=== PATIENT | male | born 1935 | race Caucasian/White ===

== ENCOUNTER 2023-12-14 09:18 | Day surgery (SDC) | payer MEDICARE, SELFPAY ==
[2023-12-14] VITALS (8 sets, daily range): BP systolic 139–163; BP diastolic 63–99; PULSE 60–90; RESP 17–20; TEMP 36.6; O2SAT 95–100; BMI 23.3
--- NOTE | 2023-12-14 07:18 | IR_ITS ---
APPROVED REPORT Patient Location: Outpatient [facility] Tacker: [facility] RT (R) PROCEDURES 1. Pocket Revision 2. Right Ventricular sensing and pacing lead capped 3. Placement of ventricular sensing pacing and shocking lead in the right ventricular apex. 4. Placement of left ventricular sensing pacing lead via the coronary sinus. 5. Permanent cardiac resynchronization therapy with ICD implantation/biventricular pacemaker. 6. Removal of pre-existing AV pacemaker generator INDICATION Systolic Congestive Heart Failure, ejection <35%, Wide QRS >150ms, [place] Heart Assoication Class 3 Congestive Heart Failure, Greater than 90% RV pacing Informed consent was obtained prior to the procedure. COMPLICATIONS NONE Estimated Blood Loss: LESS THAN 10 ML TECHNIQUE 1% lidocaine with epinephrine used to anesthetize the left anterior aspect of the chest. Scalpel was used to make the initial cutaneous incision and to dissect down into the fascia. The generator was removed from the existing pocket. Digital manipulation was required along with intermittent usage of scalpel in order to revise the pocket. The leads were removed from the old generator. The patient was then placed in Trendelenburg position and the subclavian vein was accessed 2 times via the Selinger technique. A 8 Micronesian sheath was placed under fluoroscopic guidance into the subclavian vein. The dilator was removed from the sheath. Under fluoroscopic guidance the RV shocking lead was placed in to right ventricular apex. After achieving excellent thresholds and interrogation numbers the sheath was then peeled away and the lead was then secured into place using silk suture. A 10 Micronesian sheath was placed under fluoroscopic guidance into the subclavian vein. The dilator was removed from the sheath. Under fluoroscopic guidance the coronary sinus was cannulated and confirmed with an injection of contrast. An 0.014 wire was then placed distally in the inferior posterior segment of the left ventricle via the coronary sinus and the left ventricular lead was advanced. After achieving excellent thresholds and interrogation numbers the sheath was then peeled away and the lead was then secured into place using silk suture. Ancef was used to flush the pocket and the 3 leads were attached to the OUTCOMES ANALYST-D generator. The generator was then secured into place by heavy silk suture. Monocryl was used to close the subcutaneous layers while aurora were used to close the subcutaneous layers while aurora were used to close the cutaneous layer. A pressure dressing was placed and the patient was transferred to the postop holding area in stable condition for postoperative care. INTERROGATION Generator Model number: Sofia MCKEON, [id number] Generator Serial number: [id number] Atrial lead model number: Atrial lead serial number: P-wave: 2.1mV Impedence: 380 ohms Threshold: 0.75@0.5ms Right Ventricular lead model number: Optisure, [id number], 58CM Right Ventricular lead serial number: [id number] R-wave: none Impedence: 0.5V@0.5ms Threshold: 610 ohms Left Ventricular lead model number: Quartet, 1458Q, 86cm Left Ventricular lead serial number: [id number] Impedence: 2.25V@1.0ms Threshold: 480 ohms Pacing Parameters: Mode: DDDR Base/Max Track:60 ppm / 130 ppm VT-1: bpm, monitor VT-2: 171 bpm, ATP X2, 36J, 40J, 40J X2 VF: 200 bpm, ATP X1, 36J, 40J, 40J X4 No diaphragmatic stimulation at 10 volts. IMPRESSION 1. Successful Pocket Revision 2. Successful Right Ventricular sensing and pacing lead capped 3. Successful Placement of ventricular sensing pacing and shocking lead in the right ventricular apex. 4. Successful Placement of left ventricular sensing pacing lead via the coronary sinus. 5. Successful Permanent cardiac resynchronization therapy with ICD implantation/biventricular pacemaker. PLAN 1. Postop wound care. Electronically signed by : Robles Mario MD 12/15/2023 13:06:46
[2023-12-14 10:05] LABS: Basophils # 0.1 K/mm3 (0-0.2); Basophils % 0.8 % (0.1-2.0); Eosinophils # 0.3 K/mm3 (0.0-0.4); Eosinophils % 4.9 % (0.1-12.0); Hematocrit 48.4 % (42.0-52.0); Lymphocytes # 2.4 K/mm3 (0.7-4.5); Lymphocytes % 36.6 % (10-50); Mean Corpuscular Volume 96.9 fl (80-94); Mean Platelet Volume 8.7 fl (7.4-10.4); Monocytes # 0.4 K/mm3 (0.1-1.0); Monocytes % 5.9 % (1.7-9.3); Neutrophils # 3.4 K/mm3 (1.8-7.8); Neutrophils % 51.9 % (37.0-80.0); Platelet Count 155 K/mm3 (142-424); Red Blood Count 4.99 M/mm3 (4.60-6.20); Red Cell Distribution Width 13.6 % (11.5-17.5); White Blood Count 6.5 K/mm3 (4.8-10.8)
[2023-12-14 10:13] LABS: Chloride 102 mmol/L (98-107); Potassium 5.8 mmoL/L (3.5-5.1); Sodium 139 mmol/L (136-145)
[2023-12-14 10:16] LABS: Anion Gap 12.8 mEq/L (5-15); Blood Urea Nitrogen 23 mg/dl (9-20); Carbon Dioxide 30 mmol/L (22.0-30.0); Creatinine Clearance Estimated 50 mL/min (50-200); Estimated Glomerular Filt Rate 57 ml/min (>60); GFR (African American) 69 ML/MIN (>60)
[2023-12-14 10:17] LABS: Calcium 9.1 mg/dl (8.4-10.2); Glucose 104 mg/dl (74-100)
--- NOTE | 2023-12-14 10:18 | CA_ITS ---
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 2D Dimensions EF AP4 46.70 % GL Strain -10.1 % M-Mode Dimensions RVDd 3.55 cm (0.9-2.6) LVDd 3.87 cm (3.5-5.7) LVDs 3.26 cm (3.5-5.7) IVSd 0.97 cm (0.6-1.1) PWd 0.52 cm (0.6-1.1) EF (Teich) 33.80% FS 15.80% EDV (Teich) 64.70 mL ESV (Teich) 42.80 mL Tricuspid Valve TR P. Velocity 244.00 cm/s RAP Estimate 10.00 mmHg RVSP 33.80 mmHg Other Information Study Quality: Fair Conclusion This is a limited TTE to evaluate for LVEF. Limited windows were obtained. The left ventricle size is normal. There is increased LV wall thickness. Proximal septal thickening is noted. The septum appears asynchronous. There is moderate to severe reduction in LV systolic function. LVEF is 30%. The right ventricle is moderately dilated. There is mild reduction in RV function. Device lead is noted in the right ventricle. No evidence of pericardial effusion. Electronically signed by : Shruthi Mcmillan MD 12/14/2023 10:56:20
[2023-12-14 11:41] LABS: Anion Gap 7.5 mEq/L (5-15); Blood Urea Nitrogen 23 mg/dl (9-20); Calcium 9.3 mg/dl (8.4-10.2); Carbon Dioxide 34 mmol/L (22.0-30.0); Chloride 102 mmol/L (98-107); Creatinine Clearance Estimated 50 mL/min (50-200); Estimated Glomerular Filt Rate 57 ml/min (>60); GFR (African American) 69 ML/MIN (>60); Glucose 105 mg/dl (74-100); Potassium 4.5 mmoL/L (3.5-5.1); Sodium 139 mmol/L (136-145)
[2023-12-14] MEDS: LIDOCAINE 1% W/EPI 1:100,000 20ML VIAL 20 ML SQ (12:17)
[2023-12-14] MEDS: CEFAZOLIN SODIUM 1 GM in 0.9 % SODIUM CHLORIDE 50 ML IV (12:18)
[2023-12-14] MEDS: MIDAZOLAM 2MG/2ML VIAL 1 MG IV (12:19)
[2023-12-14] MEDS: CEFAZOLIN 1GM VIAL 1 GM TP (12:37)
--- NOTE | 2023-12-14 13:11 | XR_ITS ---
FINAL REPORT CLINICAL HISTORY: Confirm pacemaker/AID placement COMPARISON: None FINDINGS: A single portable view of the chest was obtained. A left subclavian AICD is present. The heart size and pulmonary vascularity are within normal limits. The mediastinum is within normal limits. There is mild bibasilar atelectasis. There is no evidence of pneumothorax. The bony thorax is intact. IMPRESSION: Left subclavian AICD. Mild bibasilar atelectasis. Reviewed, Interpreted and Dictated by Mauro Saenz III, MD Transcribed by Cleo Smith Authenticated and [facility]
== END 2023-12-14 15:00 | disposition home or self-care (01) ==
PROVIDERS: PCP Internal Medicine; Visit Provider Internal Medicine
PROC: 0JH609Z Insertion of Cardiac Resynchronization Defibrillator Pulse Generator into Chest Subcutaneous Tissue and Fascia, Open Approach (ICD-10-PCS; CPT 33249; principal; 2023-12-14 11:00)
DX: Z45.02 Encounter for adjustment and management of automatic implantable cardiac defibrillator (principal); I50.23 Acute on chronic systolic (congestive) heart failure; Z79.899 Other long term (current) drug therapy; I25.10 Atherosclerotic heart disease of native coronary artery without angina pectoris; I48.0 Paroxysmal atrial fibrillation; I11.0 Hypertensive heart disease with heart failure; I42.9 Cardiomyopathy, unspecified
CPT/HCPCS: 33225; 33233; 33249; 36415; 71045; 80048; 85025; 93308; 99152; 99153; C1769; C1882; C1895; C1900

== ENCOUNTER 2024-01-05 13:27 | Observation (INO) | payer MEDICARE, SELFPAY ==
[2024-01-05] VITALS (23 sets, daily range): BP systolic 138–218; BP diastolic 66–124; PULSE 58–94; RESP 14–19; TEMP 36.4–37; O2SAT 94–98; BMI 23.3
--- NOTE | 2024-01-05 07:05 | IR_ITS ---
APPROVED REPORT Patient Location: Outpatient PROCEDURES Selective coronary angiogram Intravascular lithotripsy to the left main artery Intravascular lithotripsy to the proximal LAD Drug-eluting stent deployment to the ostial left main artery which extends into the proximal LAD INDICATION Coronary artery disease, Severe distal left main disease in which patient was deemed a nonsurgical candidate based on age and comorbidities, Informed consent was obtained prior to the procedure. COMPLICATIONS NONE Estimated Blood Loss: LESS THAN 10 ML TECHNIQUE One percent lidocaine used to anesthetize the right anterior aspect of the wrist. The right radial artery was accessed via the Seldinger technique. A 6 Iraqi sheath was placed in the right radial artery. 2.5 mg of Verapamil, 800 mcg of nitroglycerin, 1mg Lidocaine and 5000 U Heparin were given through the arterial sheath. The papa catheter was also used to perform selective coronary angiography. Therapeutic heparin was administered prior to the diagnostic angiogram giving a therapeutic ACT. A 6 Iraqi JL 3 guide catheter was exchanged for the Poppa catheter and then used to intubate the left main artery. A Choice PT extra-support wire was placed into the LAD and a 4 mm x 12 mm shockwave intravascular lithotripsy balloon was deployed at 4 nisa throughout the left main artery and proximal LAD for a total of 40 pulsations. Patient tolerated inflation up to 10 pulse-wave's at a time. Following this a 4 mm x 22 mm Ian frontier stent was deployed at 22 nisa reducing the severe stenosis to 0%. FELICE-3 flow was present before and after the procedure. There was some jailing of the circumflex artery however FELICE-3 flow was present in both the left main artery LAD and circumflex artery following the procedure. After achieving excellent angiograph results the apparatus was removed the sheath was removed and hemostasis was achieved using TR banding patient was transferred to the postop putting in stable condition ANGIOGRAPHIC RESULTS The left main artery Has a distal 70% calcified stenosis The left anterior descending artery Has proximal 30 and 40% concentric stenoses with mid vessel 50% stenosis followed by an additional mid vessel calcified concentric 90% stenosis at the junction between the mid LAD and distal LAD. The circumflex artery Is nondominant yet still large and has an ostial 40% stenosis following revascularization and stenting of the left main artery jailing the circumflex artery. There is an additional proximal calcified 40% stenosis The right coronary artery Was not engaged due to renal insufficiency and previous engagement 2 months ago at [place] The DHALIWAL ventriculogram reveals Not performed The left ventricular end-diastolic pressure Not measured IMPRESSION Severe distal left main disease Successful intravascular lithotripsy to the distal left main artery and proximal LAD Successful stenting of the ostial left main artery extending throughout the left main artery and into the proximal LAD reducing the severe stenosis to 0% Persistent severe stenosis in the mid to distal LAD as described above Persistent moderate stenosis in the ostial circumflex artery as described above PLAN 1. Dual antiplatelet therapy 2. Admit patient overnight for IV fluids to monitor for contrast nephropathy and due to complexity of the procedure with malignant hypertension occurring in postop 3. Treat hypertension accordingly 4. Chemistry panel in the morning along with CBC Electronically signed by : Robles Mario MD 01/05/2024 15:28:46
[2024-01-05 08:49] LABS: Basophils # 0.1 K/mm3 (0-0.2); Basophils % 1.1 % (0.1-2.0); Eosinophils # 0.3 K/mm3 (0.0-0.4); Eosinophils % 3.4 % (0.1-12.0); Hematocrit 40.7 % (42.0-52.0); Hemoglobin 13.3 g/dL (14.1-18.0); Lymphocytes # 2.7 K/mm3 (0.7-4.5); Lymphocytes % 36.3 % (10-50); Mean Corpuscular HGB Conc 32.5 g/dL (31.8-35.4); Mean Corpuscular Hemoglobin 32.1 pg (27.0-31.2); Mean Corpuscular Volume 98.8 fl (80-94); Mean Platelet Volume 8.6 fl (7.4-10.4); Monocytes # 0.7 K/mm3 (0.1-1.0); Monocytes % 9.2 % (1.7-9.3); Neutrophils # 3.7 K/mm3 (1.8-7.8); Neutrophils % 50.1 % (37.0-80.0); Platelet Count 139 K/mm3 (142-424); Red Blood Count 4.12 M/mm3 (4.60-6.20); Red Cell Distribution Width 13.8 % (11.5-17.5); White Blood Count 7.4 K/mm3 (4.8-10.8)
[2024-01-05 08:59] LABS: Anion Gap 8.9 mEq/L (5-15); Blood Urea Nitrogen 27 mg/dl (9-20); Carbon Dioxide 32 mmol/L (22.0-30.0); Chloride 102 mmol/L (98-107); Creatinine Clearance Estimated 46 mL/min (50-200); Estimated Glomerular Filt Rate 52 ml/min (>60); GFR (African American) 63 ML/MIN (>60); Glucose 98 mg/dl (74-100); Potassium 3.9 mmoL/L (3.5-5.1); Sodium 139 mmol/L (136-145)
[2024-01-05] MEDS: 0.9 % SODIUM CHLORIDE 500 ML 25 ML IV (10:49)
[2024-01-05] MEDS: HEPARIN 1,000 UNITS/500ML NS (CATH LAB) 3000 UNIT IV (10:49)
[2024-01-05] MEDS: VERAPAMIL 2.5MG/ML 2ML VIAL 2.5 MG IV (10:50)
[2024-01-05] MEDS: LIDOCAINE 1% 10ML MDV 20 ML IJ (10:50)
[2024-01-05] MEDS: NITROGLYCERIN 800MCG/8ML SYR (CATH LAB) 800 MCG IA (10:50)
[2024-01-05] MEDS: diphenhydrAMINE 50MG/ML VIAL 50 MG IV (10:50)
[2024-01-05] MEDS: HEPARIN 1,000 UNITS/ML 10ML VIAL (CATH LAB) 10000 UNIT IV (10:50)
[2024-01-05] MEDS: FENTANYL 100MCG/2ML VIAL 25 MCG IV (11:25)
[2024-01-05] MEDS: MIDAZOLAM HCL 1MG/1ML 5ML VIAL 1 MG IV (11:25)
[2024-01-05] MEDS: IOPAMIDOL-370 (76%);100ML BOTTLE 120 ML IV (12:06)
[2024-01-05 12:08] LABS: CATHL Activated Clotting Time 352 SEC (74-125)
[2024-01-05 12:09] LABS: CATHL Activated Clotting Time 301 SEC (74-125)
--- NOTE | 2024-01-05 13:44 | EXP.HP ---
History of Present Illness *Admission Date: 01/05/24 *Reason for visit:: Chest pain, CAD, abnormal stress test *History of present illness: Mr. Nayak is an 88-year-old male with history of CAD and pacemaker. He recently had his pacemaker replaced a little over 2 weeks ago. Presented for elective outpatient cath today due to concern for significant coronary artery disease noted on cath in October at [facility]. Patient reportedly had multivessel disease and it was recommended he have CABG but due to his age and comorbidities was not a viable candidate. He presented to cardiology at [facility] for second opinion. Cardiology recommended proceeding with stenting given his critical disease. Procedure performed today, tolerated well. Medicine was consulted for admission after heart cath for monitoring overnight given LAD disease and risk for complications. On arrival to the floor, patient is chest pain-free. Has no nausea or vomiting. Blood pressure mildly elevated. at bedside. Overall doing well. Recent cardiac history as follows: Recent Cath on 10/30/2023 at [place], Dist LM lesion 50% stenosis, Dist LAD lesion is 80% stenosis, 2nd Mrg lesion is 70% with no intervention. Hx of MARY to circ. HFrEF-EF of 35-40% by Cath on 10/30/2024. 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 Medical History Atrial fibrillation Congestive heart failure Coronary artery disease History of left heart catheterization (LHC) History of pacemaker Hyperlipidemia Hypertension Surgical History H/O heart artery stent Family History No significant family history Social History Smoking Status: Unknown if ever smoked alcohol intake: never current occupational status: retired Travel in the last 8 weeks: Inside the [place] Review of Systems Review of Systems Review of systems (narrative): 14 point review of systems performed, pertinent positives and negatives as per HPI Meds Home Medications and Allergies Home Medications Medication Instructions Recorded Confirmed Type acetaminophen 500 mg capsule 500 mg PO Q6H PRN Pain 12/04/23 01/05/24 History antiarthritic combination no.2 900 20 mg PO NEEDED PRN Pain 12/04/23 01/05/24 History mg tablet (glucosamine-chondroitin) cholecalciferol (vitamin D3) 125 125 mcg PO DAILY 12/04/23 01/05/24 History mcg (5,000 unit) capsule clopidogrel 75 mg tablet 75 mg PO DAILY 12/04/23 01/05/24 History esomeprazole magnesium 20 mg 20 mg PO DAILY 12/04/23 01/05/24 History capsule,delayed release hydrocodone 10 mg-acetaminophen 15 ml PO Q8H PRN Pain 12/04/23 01/05/24 History 325 mg/15 mL (15 mL) oral solution [id number]-NG 0.4 mg-calcium 162 1 tab PO DAILY 12/04/23 01/05/24 History mg-iron 18 ma-xamluwp-qpqgkt tablet olmesartan 40 40 tab PO DAILY 12/04/23 01/05/24 History mg-hydrochlorothiazide 25 mg tablet psyllium husk 0.4 gram capsule 0.4 g PO DAILY 12/04/23 01/05/24 History (Metamucil) rivaroxaban 20 mg tablet (Xarelto) 20 mg PO DAILY 12/04/23 01/05/24 History carvedilol 6.25 mg tablet (Coreg) 6.25 mg PO BID #60 tabs 12/22/23 01/05/24 Rx isosorbide mononitrate 30 mg 30 mg PO DAILY #90 tabs 12/22/23 01/05/24 Rx tablet,extended release 24 hr New Prescriptions to Start Prescriptions: Allergies Allergy/AdvReac Type Severity Reaction Status Date / Time No Known Allergies Allergy Verified 12/29/23 10:31 Exam Data for Last 24 hours Vital signs and Labs for Last 24 Hours: Temp Pulse Resp BP Pulse Ox O2 Del Method 98.6 F 60 17 147/81 H 95 Room Air 01/05/24 11:39 01/05/24 13:10 01/05/24 13:10 01/05/24 13:10 01/05/24 13:10 01/05/24 12:25 Laboratory Results - last 24 hr 01/05/24 08:42: WBC 7.4, RBC 4.12 L, Hgb 13.3 L, Hct 40.7 L, MCV 98.8 H, MCH 32.1 H, MCHC 32.5, RDW 13.8, Plt Count 139 L, MPV 8.6, Neut % (Auto) 50.1, Lymph % (Auto) 36.3, Dodge % (Auto) 9.2, Eos % (Auto) 3.4, Baso % (Auto) 1.1, Neut # (Auto) 3.7, Lymph # (Auto) 2.7, Dodge # (Auto) 0.7, Eos # (Auto) 0.3, Baso # (Auto) 0.1, Sodium 139, Potassium 3.9, Chloride 102, Carbon Dioxide 32 H, Anion Gap 8.9, BUN 27 H, Creatinine 1.30 H, Estimated Creat Clear 46, Estimated GFR 52 L, Est GFR ( Amer) 63, Glucose 98, Calcium 9.0 01/05/24 11:59: Activated Clotting Time 352 H* 01/05/24 12:20: Activated Clotting Time 301 H* I & O for Last 24 hours: Intake & Output 01/02/24 01/03/24 01/04/24 01/05/24 23:59 23:59 23:59 23:59 Weight 80.286 kg Constitutional Constitutional: no acute distress, average body habitus and cooperative *Routine HEENT Exam Head: Present normocephalic Eye: Present EOMI and PERRL ENT: Present mucous membranes moist *Routine Neck Exam Neck: Present supple; Absent lymphadenopathy Routine Chest/Breast/Axilla Exam Chest wall: Present pacemaker (Left upper chest, small fluid collection overlying pacemaker. No significant warmth or redness) *Routine Respiratory Exam Respiratory: Present CTA bilaterally *Routine Cardiovascular Exam Cardiovascular: Present RRR *Routine Abdominal Exam Abdominal: Present soft and normoactive bowel sounds; Absent tenderness *Routine Rectal Exam Rectal:: deferred *Routine Genitalia Exam Genitalia:: deferred *Routine Extremities Exam Extremities: Absent cyanosis, clubbing or edema *Routine Skin Exam Skin: Present warm; Absent rash *Routine Neurological Exam Neurological: Present alert, oriented X3 and moving all extremities; Absent altered mental status Assessment and Plan *Assessment and plan (1) Atherosclerosis of left anterior descending (LAD) artery: Status: Acute Category: Medical Code(s): I25.10 - Atherosclerotic heart disease of [place] coronary artery without angina pectoris (2) Left main coronary artery disease: Status: Acute Category: Medical Code(s): I25.10 - Atherosclerotic heart disease of [place] coronary artery without angina pectoris (3) Coronary artery disease: Status: Acute Qualifiers: Associated angina: without angina Coronary Disease-Associated Artery/Lesion type: [place] artery [place] vs. transplanted heart: [place] heart Qualified Code(s): I25.10 - Atherosclerotic heart disease of [place] coronary artery without angina pectoris Category: Medical Code(s): I25.10 - Atherosclerotic heart disease of [place] coronary artery without angina pectoris (4) Cardiac pacemaker in situ: Status: Acute Category: Medical Code(s): Z95.0 - Presence of cardiac pacemaker (5) PAF (paroxysmal atrial fibrillation): Status: Acute Category: Medical Code(s): I48.0 - Paroxysmal atrial fibrillation (6) Hypertension: Status: Acute Qualifiers: Hypertension type: unspecified Qualified Code(s): I10 - Essential (primary) hypertension Category: Medical Code(s): I10 - Essential (primary) hypertension (7) Cardiomyopathy: Status: Acute Qualifiers: Cardiomyopathy type: unspecified Qualified Code(s): I42.9 - Cardiomyopathy, unspecified Category: Medical Code(s): I42.9 - Cardiomyopathy, unspecified (8) Systolic heart failure: Status: Acute Qualifiers: Heart failure chronicity: acute on chronic Qualified Code(s): I50.23 - Acute on chronic systolic (congestive) heart failure Category: Medical Code(s): I50.20 - Unspecified systolic (congestive) heart failure Plan 88-year-old male status post left heart cath. Tolerated procedure well. Stent to the LAD placed. Discussed case with cardiology, request admission for monitoring overnight. Medicine agreed to admit for monitoring on telemetry, and reevaluation in the morning by cardiology. Patient hemodynamically stable. Problems addressed as follows: CAD Status post left heart cath with stent to LAD Heart failure with reduced ejection fraction Paroxysmal A-fib -Status post END TOUCHING MACHINE OPERATOR-D 2 weeks ago. Pocket healing well. No sign of inflammation or infection -Status post cath today, cardiology consulted, appreciate their recommendations - Continue dual antiplatelet therapy with aspirin 81 mg daily and Plavix 75 mg daily. Continue Lipitor 40 mg nightly for hyperlipidemia, carvedilol 6.25 mg twice daily, isosorbide 30 mg daily, Xarelto 20 mg daily. -Continuous telemetry -CBC, CMP, magnesium, lipid panel ordered for the morning GERD: Pantoprazole 40 mg nightly Full code Cardiac Xarelto
[2024-01-05] MEDS: LABETALOL 20MG/4ML SYRINGE 20 MG IV (13:56)
--- NOTE | 2024-01-05 17:10 | PC.NURSE ---
patient is alert & oriented x4, BP has improved since arriving to the floor from senior label specialist. Tegaderm and gauze dressing on RR cath site, no drainage noted. Pt remains on room air at 96%, NSR on the monitor. No complaints from patient. Pt is independent/assist x1. Bed alarm in use.
[2024-01-05] MEDS: ATORVASTATIN 40MG TABLET 40 MG PO (20:22)
[2024-01-05] MEDS: CARVEDILOL 6.25MG TABLET 6.25 MG PO (20:22)
[2024-01-05] MEDS: PANTOPRAZOLE 40MG TABLET 40 MG PO (20:22)
[2024-01-05] MEDS: ACETAMINOPHEN 500MG TAB 500 MG PO (20:23)
[2024-01-06] VITALS: BP 119/72; BP 125/83; PULSE 60; RESP 16; RESP 18; TEMP 36.5; TEMP 36.6; O2SAT 93; O2SAT 94
[2024-01-06 04:00] VITALS: BP 140/70; PULSE 60; RESP 16; TEMP 36.8; O2SAT 95; BMI 23.1
[2024-01-06 07:46] LABS: Basophils # 0.1 K/mm3 (0-0.2); Basophils % 0.6 % (0.1-2.0); Eosinophils # 0.2 K/mm3 (0.0-0.4); Eosinophils % 2.7 % (0.1-12.0); Hematocrit 41.4 % (42.0-52.0); Hemoglobin 13.7 g/dL (14.1-18.0); Lymphocytes % 23.3 % (10-50); Mean Corpuscular HGB Conc 33.2 g/dL (31.8-35.4); Mean Corpuscular Hemoglobin 32.1 pg (27.0-31.2); Mean Corpuscular Volume 96.9 fl (80-94); Mean Platelet Volume 8.5 fl (7.4-10.4); Monocytes # 0.7 K/mm3 (0.1-1.0); Neutrophils # 5.6 K/mm3 (1.8-7.8); Neutrophils % 65.4 % (37.0-80.0); Platelet Count 139 K/mm3 (142-424); Red Blood Count 4.27 M/mm3 (4.60-6.20); Red Cell Distribution Width 13.6 % (11.5-17.5); White Blood Count 8.5 K/mm3 (4.8-10.8)
[2024-01-06 07:51] LABS: Anion Gap 9.9 mEq/L (5-15); Blood Urea Nitrogen 20 mg/dl (9-20); Calcium 9.1 mg/dl (8.4-10.2); Carbon Dioxide 32 mmol/L (22.0-30.0); Chloride 101 mmol/L (98-107); Creatinine Clearance Estimated 49 mL/min (50-200); Estimated Glomerular Filt Rate 57 ml/min (>60); GFR (African American) 69 ML/MIN (>60); Glucose 104 mg/dl (74-100); Potassium 3.9 mmoL/L (3.5-5.1); Sodium 139 mmol/L (136-145)
--- NOTE | 2024-01-06 07:56 | EXP.DC.SUM ---
General Admission date:: 01/05/24 Discharge date: 01/06/24 HPI HPI HPI: Mr. Nayak is an 88-year-old male with history of CAD and pacemaker. He recently had his pacemaker replaced a little over 2 weeks ago. Presented for elective outpatient cath today due to concern for significant coronary artery disease noted on cath in October at [place]. Patient reportedly had multivessel disease and it was recommended he have CABG but due to his age and comorbidities was not a viable candidate. He presented to cardiology at [facility] for second opinion. Cardiology recommended proceeding with stenting given his critical disease. Procedure performed today, tolerated well. Medicine was consulted for admission after heart cath for monitoring overnight given LAD disease and risk for complications. On arrival to the floor, patient is chest pain-free. Has no nausea or vomiting. Blood pressure mildly elevated. at bedside. Overall doing well. Recent cardiac history as follows: Recent Cath on 10/30/2023 at [facility] [place], Dist LM lesion 50% stenosis, Dist LAD lesion is 80% stenosis, 2nd Mrg lesion is 70% with no intervention. Hx of MARY to circ. HFrEF-EF of 35-40% by Cath on 10/30/2024. LOT ASSOCIATE-DEFIB recent upgrade (DEC 2023) Hospital Course Hospital Course Hospital Course: 88-year-old male status post left heart cath. Tolerated procedure well. Stent to the LAD placed. Discussed case with cardiology, request admission for monitoring overnight. Medicine agreed to admit for monitoring on telemetry, and reevaluation in the morning by cardiology. Patient had no events. Remained hemodynamically stable. Stable to discharge home with plan for close follow-up. Problems addressed as follows: CAD Status post left heart cath with stent to LAD Heart failure with reduced ejection fraction Paroxysmal A-fib -Patient presented for elective heart cath due to known multivessel disease and not being a candidate for CABG. He is status post LOT ASSOCIATE-D 2 weeks ago. Pocket healing well. No sign of inflammation or infection with his pacemaker pocket. Left heart cath performed on 01/04. Procedure tolerated well, successful stenting of LAD lesion. Cardiology assisting with care. Recommend continuing dual antiplatelet therapy with aspirin 81 mg daily and Plavix 75 mg daily. Continue Lipitor 40 mg nightly for hyperlipidemia, carvedilol 6.25 mg twice daily, isosorbide 30 mg daily, Xarelto 20 mg daily. No events on telemetry. Given clinical stability, discharged home with close follow-up. Continue home PPI for GERD. Exam Data for Last 24 hours Vital signs and Labs for Last 24 Hours: Temp Pulse Resp BP Pulse Ox O2 Del Method 98.2 F 60 16 140/70 95 Room Air 01/06/24 04:00 01/06/24 04:00 01/06/24 04:00 01/06/24 04:00 01/06/24 04:00 01/06/24 04:00 Laboratory Results - last 24 hr 01/05/24 08:42: WBC 7.4, RBC 4.12 L, Hgb 13.3 L, Hct 40.7 L, MCV 98.8 H, MCH 32.1 H, MCHC 32.5, RDW 13.8, Plt Count 139 L, MPV 8.6, Neut % (Auto) 50.1, Lymph % (Auto) 36.3, [place] % (Auto) 9.2, Eos % (Auto) 3.4, Baso % (Auto) 1.1, Neut # (Auto) 3.7, Lymph # (Auto) 2.7, [place] # (Auto) 0.7, Eos # (Auto) 0.3, Baso # (Auto) 0.1, Sodium 139, Potassium 3.9, Chloride 102, Carbon Dioxide 32 H, Anion Gap 8.9, BUN 27 H, Creatinine 1.30 H, Estimated Creat Clear 46, Estimated GFR 52 L, Est GFR ( Amer) 63, Glucose 98, Calcium 9.0 01/05/24 11:59: Activated Clotting Time 352 H* 01/05/24 12:20: Activated Clotting Time 301 H* 01/06/24 06:43: WBC 8.5, RBC 4.27 L, Hgb 13.7 L, Hct 41.4 L, MCV 96.9 H, MCH 32.1 H, MCHC 33.2, RDW 13.6, Plt Count 139 L, MPV 8.5, Neut % (Auto) 65.4, Lymph % (Auto) 23.3, [place] % (Auto) 8.0, Eos % (Auto) 2.7, Baso % (Auto) 0.6, Neut # (Auto) 5.6, Lymph # (Auto) 2.0, [place] # (Auto) 0.7, Eos # (Auto) 0.2, Baso # (Auto) 0.1 I & O for Last 24 hours: Intake & Output 01/03/24 01/04/24 01/05/24 01/06/24 23:59 23:59 23:59 23:59 Intake Total 500 / 500 360 / 360 Output Total 0 / 0 0 / 0 Balance 500 / 500 360 / 360 Weight 80.286 kg 78.97 kg Constitutional Constitutional: no acute distress and average body habitus *Routine HEENT Exam Head: Present normocephalic Eye: Present EOMI and PERRL ENT: Present mucous membranes moist *Routine Neck Exam Neck: Present supple; Absent lymphadenopathy Routine Chest/Breast/Axilla Exam Chest wall: Present pacemaker *Routine Respiratory Exam Respiratory: Present CTA bilaterally; Absent rhonchi, wheezes or crackles *Routine Cardiovascular Exam Cardiovascular: Present RRR *Routine Abdominal Exam Abdominal: Present soft and normoactive bowel sounds; Absent tenderness *Routine Extremities Exam Extremities: Absent cyanosis, clubbing or edema *Routine Skin Exam Skin: Present warm; Absent rash *Routine Neurological Exam Neurological: Present alert, oriented X3 and moving all extremities; Absent altered mental status Results Data Completed and Pending Labs on day of discharge: Labs from last 24 hours 01/06/24 01/05/24 01/05/24 06:43 12:20 11:59 WBC 8.5 RBC 4.27 L Hgb 13.7 L Hct 41.4 L MCV 96.9 H MCH 32.1 H MCHC 33.2 RDW 13.6 Plt Count 139 L MPV 8.5 Neut % (Auto) 65.4 Lymph % (Auto) 23.3 [place] % (Auto) 8.0 Eos % (Auto) 2.7 Baso % (Auto) 0.6 Neut # (Auto) 5.6 Lymph # (Auto) 2.0 [place] # (Auto) 0.7 Eos # (Auto) 0.2 Baso # (Auto) 0.1 Activated Clotting Time 301 H* 352 H* Sodium Potassium Chloride Carbon Dioxide Anion Gap BUN Creatinine Estimated Creat Clear Estimated GFR Est GFR ( Amer) Glucose Calcium 01/05/24 08:42 WBC 7.4 RBC 4.12 L Hgb 13.3 L Hct 40.7 L MCV 98.8 H MCH 32.1 H MCHC 32.5 RDW 13.8 Plt Count 139 L MPV 8.6 Neut % (Auto) 50.1 Lymph % (Auto) 36.3 [place] % (Auto) 9.2 Eos % (Auto) 3.4 Baso % (Auto) 1.1 Neut # (Auto) 3.7 Lymph # (Auto) 2.7 [place] # (Auto) 0.7 Eos # (Auto) 0.3 Baso # (Auto) 0.1 Activated Clotting Time Sodium 139 Potassium 3.9 Chloride 102 Carbon Dioxide 32 H Anion Gap 8.9 BUN 27 H Creatinine 1.30 H Estimated Creat Clear 46 Estimated GFR 52 L Est GFR ( Amer) 63 Glucose 98 Calcium 9.0 DS: Diagnosis Discharge Diagnosis (1) Atherosclerosis of left anterior descending (LAD) artery: Status: Acute Code(s): I25.10 - Atherosclerotic heart disease of [place] coronary artery without angina pectoris (2) Left main coronary artery disease: Status: Acute Code(s): I25.10 - Atherosclerotic heart disease of [place] coronary artery without angina pectoris (3) Coronary artery disease: Status: Acute Code(s): I25.10 - Atherosclerotic heart disease of [place] coronary artery without angina pectoris Qualifiers: Associated angina: without angina Coronary Disease-Associated Artery/Lesion type: [place] artery [place] vs. transplanted heart: [place] heart Qualified Code(s): I25.10 - Atherosclerotic heart disease of [place] coronary artery without angina pectoris (4) Cardiac pacemaker in situ: Status: Acute Code(s): Z95.0 - Presence of cardiac pacemaker (5) PAF (paroxysmal atrial fibrillation): Status: Acute Code(s): I48.0 - Paroxysmal atrial fibrillation (6) Hypertension: Status: Acute Code(s): I10 - Essential (primary) hypertension Qualifiers: Hypertension type: unspecified Qualified Code(s): I10 - Essential (primary) hypertension (7) Cardiomyopathy: Status: Acute Code(s): I42.9 - Cardiomyopathy, unspecified Qualifiers: Cardiomyopathy type: unspecified Qualified Code(s): I42.9 - Cardiomyopathy, unspecified (8) Systolic heart failure: Status: Acute Code(s): I50.20 - Unspecified systolic (congestive) heart failure Qualifiers: Heart failure chronicity: acute on chronic Qualified Code(s): I50.23 - Acute on chronic systolic (congestive) heart failure Meds Home Medications and Allergies Home Medications Medication Instructions Recorded Confirmed Type acetaminophen 500 mg capsule 500 mg PO Q6H PRN Pain 12/04/23 01/05/24 History antiarthritic combination no.2 900 20 mg PO DAILYP PRN Pain 12/04/23 01/06/24 History mg tablet (glucosamine-chondroitin) cholecalciferol (vitamin D3) 125 125 mcg PO DAILY 12/04/23 01/05/24 History mcg (5,000 unit) capsule clopidogrel 75 mg tablet 75 mg PO DAILY 12/04/23 01/05/24 History esomeprazole magnesium 20 mg 20 mg PO DAILY 12/04/23 01/05/24 History capsule,delayed release [id number]-YC 0.4 mg-calcium 162 1 tab PO DAILY 12/04/23 01/05/24 History mg-iron 18 bt-hxvpjos-eawbvh tablet olmesartan 40 40 tab PO DAILY 12/04/23 01/05/24 History mg-hydrochlorothiazide 25 mg tablet psyllium husk 0.4 gram capsule 0.4 g PO DAILY 12/04/23 01/05/24 History (Metamucil) rivaroxaban 20 mg tablet (Xarelto) 20 mg PO DAILY 12/04/23 01/05/24 History carvedilol 6.25 mg tablet (Coreg) 6.25 mg PO BID #60 tabs 12/22/23 01/05/24 Rx isosorbide mononitrate 30 mg 30 mg PO DAILY #90 tabs 12/22/23 01/05/24 Rx tablet,extended release 24 hr aspirin 81 mg tablet,delayed 81 mg PO DAILY 30 days #30 tabs 01/06/24 Rx release atorvastatin 40 mg tablet 40 mg PO HS 30 days #30 tabs 01/06/24 Rx hydrocodone 10 mg-acetaminophen 1 tab PO Q8 PRN Pain 01/06/24 01/06/24 History 325 mg tablet New Prescriptions to Start Prescriptions: Hunter Luciano atorvastatin Hunter Newman Allergies Allergy/AdvReac Type Severity Reaction Status Date / Time No Known Allergies Allergy Verified 12/29/23 10:31 Discharge Plan Disposition Patient Disposition: Home, Self-Care Condition: Fair Follow up Plan Follow up with: Robles Mario MD [Staff Physician] - 01/13/24 10:15 am Rosalino Pichardo [Primary Care Provider] - 01/08/24 11:15 am Prescriptions/Medication Reconciliation: New aspirin 81 mg Tablet,Delayed Release (Dr/Ec) 81 mg PO DAILY 30 Days Qty: 30 0RF atorvastatin 40 mg Tablet 40 mg PO HS 30 Days Qty: 30 0RF Continued acetaminophen 500 mg capsule 500 mg PO Q6H PRN (Reason: Pain) cholecalciferol (vitamin D3) 125 mcg (5,000 unit) capsule 125 mcg PO DAILY clopidogrel 75 mg tablet 75 mg PO DAILY esomeprazole magnesium 20 mg capsule,delayed release(DR/EC) 20 mg PO DAILY glucosamine-chondroitin 900 mg tablet 20 mg PO DAILYP PRN (Reason: Pain) psyllium husk [Metamucil] 0.4 gram capsule 0.4 g PO DAILY lx-cso-FT-Yl-Aq-tbnnsqx-lutein 0.4-162-18 mg tablet 1 tab PO DAILY olmesartan-hydrochlorothiazide 40-25 mg tablet 40 tab PO DAILY Xarelto 20 mg tablet 20 mg PO DAILY carvedilol [Coreg] 6.25 mg tablet 6.25 mg PO BID Qty: 60 3RF Rx Instructions: must administer with a meal/food isosorbide mononitrate 30 mg tablet extended release 24 hr 30 mg PO DAILY Qty: 90 3RF hydrocodone-acetaminophen 10-325 mg Tablet 1 tab PO Q8 PRN (Reason: Pain) Rx Instructions: Pt confirmed he takes 1 tablet 3-4 time per month, still has pills leftover from September Problem Reconciliation Problems Reviewed?: Yes Patient Discharge Instructions ACTIVITY: Continue current activity DIET: continue same diet Patient Instructions: DI for Cardiac Catheterization, DI for Surgical Site Infection, DI for Moderate Sedation, DI for Post-Surgical Bleeding Providers Primary Care Provider: Rosalino Pichardo Admit Provider: Hunter Newman Attending Provider: Hunter Newman
[2024-01-06 08:00] VITALS: BP 145/84; PULSE 60; PULSE 70; RESP 19; TEMP 36.6; O2SAT 94
--- NOTE | 2024-01-06 08:09 | HMH.PHAINT1 ---
Pharmacy Intervention Comments: Verified home medications using external fill history and provider notes from recent office visit and previous hospital encounter.
[2024-01-06 08:13] LABS: Alanine Aminotransferase 24 U/L (12-78); Albumin Level 4.1 g/dl (3.5-5.0); Alkaline Phosphatase 76 U/L (38-126); Aspartate Amino Transferase 92 U/L (17-59); Bilirubin,Direct 0.1 mg/dl (0.0-0.4); Bilirubin,Indirect 0.5 mg/dL (0.0-0.9); Bilirubin,Total 0.6 mg/dl (0.2-1.3); Bilirubin,Unconjugated 0.5 mg/dL (0.0-1.1); Cholesterol 257 mg/dl (140-200); HDL Cholesterol 32 mg/dl (40-60); Triglycerides 277 mg/dl (30-150); VLDL Cholesterol 55 mg/dL (0-40)
[2024-01-06 08:36] LABS: Direct LDL Cholesterol 129.95 mg/dL (100-129)
[2024-01-06] MEDS: CLOPIDOGREL 75MG TAB 75 MG PO (09:03)
[2024-01-06] MEDS: ASPIRIN EC 81MG TABLET 81 MG PO (09:03)
[2024-01-06] MEDS: ISOSORBIDE MONO 30MG TAB.ER.24H 30 MG PO (09:03)
[2024-01-06] MEDS: CARVEDILOL 6.25MG TABLET 6.25 MG PO (09:03)
--- NOTE | 2024-01-06 10:33 | P.PN_ITS ---
Subjective Subjective Date: 01/06/24 Time: 09:00 Principal diagnosis: CAD s/p stenting Interval history: The patient was admitted overnight following left cardiac catheterization yesterday. The patient had intravascular lithotripsy to the distal left main with successful stenting of the ostial left main extending throughout the left main and into the proximal LAD. The patient had persistent disease to the LAD and circumflex arteries. He tolerated the procedure well. His overnight stay has been unremarkable. His renal function is stable. He denies any chest pain or pressure. He denies any shortness of breath or edema. He denies any fever, chills, nausea, vomiting, diarrhea, PND or orthopnea. Exam Data for Last 24 hours Vital signs and Labs for Last 24 Hours: Temp Pulse Resp BP Pulse Ox O2 Del Method 97.9 F 60 19 145/84 H 94 L Room Air 01/06/24 08:00 01/06/24 08:00 01/06/24 08:00 01/06/24 08:00 01/06/24 08:00 01/06/24 09:02 Laboratory Results - last 24 hr 01/05/24 11:59: Activated Clotting Time 352 H* 01/05/24 12:20: Activated Clotting Time 301 H* 01/06/24 06:43: WBC 8.5, RBC 4.27 L, Hgb 13.7 L, Hct 41.4 L, MCV 96.9 H, MCH 32.1 H, MCHC 33.2, RDW 13.6, Plt Count 139 L, MPV 8.5, Neut % (Auto) 65.4, Lymph % (Auto) 23.3, [place] % (Auto) 8.0, Eos % (Auto) 2.7, Baso % (Auto) 0.6, Neut # (Auto) 5.6, Lymph # (Auto) 2.0, [place] # (Auto) 0.7, Eos # (Auto) 0.2, Baso # (Auto) 0.1, Sodium 139, Potassium 3.9, Chloride 101, Carbon Dioxide 32 H, Anion Gap 9.9, BUN 20 D, Creatinine 1.20, Estimated Creat Clear 49, Estimated GFR 57 L, Est GFR ( Amer) 69, Glucose 104 H, Calcium 9.1, Total Bilirubin 0.6, Direct Bilirubin 0.1, Conjugated Bilirubin 0.0, Indirect Bilirubin 0.5, Unconjugated Bilirubin 0.5, AST 92 H, ALT 24, Alkaline Phosphatase 76, Total Protein 7.0, Albumin 4.1, Triglycerides 277 H, Cholesterol 257 H, LDL Cholesterol Direct 129.95 H, VLDL Cholesterol 55 H, HDL Cholesterol 32 L, Cholesterol/HDL Ratio 8.0 H I & O for Last 24 hours: Intake & Output 01/03/24 01/04/24 01/05/24 01/06/24 23:59 23:59 23:59 23:59 Intake Total 500 / 500 360 / 360 Output Total 0 / 0 0 / 0 Balance 500 / 500 360 / 360 Weight 177 lb 174 lb 1.6 oz Constitutional Constitutional: no acute distress and average body habitus *Routine HEENT Exam Head: Present normocephalic and atraumatic ENT: Present mucous membranes moist *Routine Neck Exam Neck: Present supple, full ROM and normal carotid upstroke; Absent JVD, carotid bruit or lymphadenopathy *Routine Respiratory Exam Respiratory: Present CTA bilaterally, normal respiratory effort, able to speak in complete sentences and symmetric chest movement *Routine Cardiovascular Exam Cardiovascular: Present RRR, Normal S1 and Normal S2; Absent murmur or gallop *Routine Abdominal Exam Abdominal: Present soft and normoactive bowel sounds; Absent tenderness, distended or organomegaly *Routine Extremities Exam Extremities: Present full ROM, pulses intact and normal capillary refill; Absent cyanosis, clubbing or edema *Routine Skin Exam Skin: Present intact and warm; Absent erythema *Routine Neurological Exam Neurological: Present alert, oriented X3 and CN II-XII intact; Absent sensory deficit or motor deficit Routine Psychiatric Exam Psychiatric: Present normal affect Progress Note: A&P Assessment and plan (1) Coronary artery disease: Status: Acute (2) PAF (paroxysmal atrial fibrillation): Status: Acute (3) Hypertension: Status: Acute (4) Cardiomyopathy: Status: Acute (5) Presence of biventricular AICD: Status: Acute (6) Hyperlipidemia: Status: Acute (7) HFrEF (heart failure with reduced ejection fraction): Status: Acute Assessment and Plan Assessment and Plan for All Diagnoses:: Plan: 1. The patient was admitted to the hospital for observation following lithotripsy and stenting to the left main extending into the LAD. The patient tolerated the procedure well and will be on Plavix and aspirin for dual antiplatelet therapy. 2. Coronary artery disease is stable. 3. His blood pressure is well-controlled. 4. His LDL goal is less than 55. His LDL is 129. Increase Lipitor to 80 mg p.o. nightly. 5. The patient does have a history of HFrEF. This is currently stable. He is status post biventricular AICD placement. 6. The patient's renal function is stable with a creatinine of 1.2 today. 7. The patient does have a history of paroxysmal atrial fibrillation. He is on long-term anticoagulation with Xarelto. The patient will be on triple therapy with aspirin, Plavix and Xarelto for 30 days. After 30 days the patient can stop aspirin and remain on Plavix and Xarelto. 8. The patient is stable for discharge home today from a cardiac standpoint. The patient will need to follow-up in cardiology clinic in 1 to 2 weeks on an outpatient basis. He will need to be discharged on the following cardiac medications: Aspirin 81 mg daily for 30 days, Lipitor 80 mg p.o. nightly, Coreg 6.25 mg p.o. twice daily, Plavix 75 mg daily, isosorbide 30 mg daily, Xarelto 20 mg p.o. daily, Olmesartan/HCT 40/25 mg daily. Thank you for the opportunity to help participate in the care of this patient. All recommendations and orders are per Dr. Mcmillan.
--- NOTE | 2024-01-07 14:38 | CARE MANAGER ---
Contacted patient's . She states he is doing very well. He is aware of his follow up appointments and medications. Denies any questions or concerns. CAN Simmons
== END 2024-01-06 11:47 | disposition home or self-care (01) ==
LOC: 2ND 13:27
PROVIDERS: Internal Medicine; Nurse Practitioner Family; Admitting Provider Internal Medicine Adolescent Medicine; PCP Family Medicine; Visit Provider Internal Medicine Adolescent Medicine
DX: I25.10 Atherosclerotic heart disease of native coronary artery without angina pectoris (principal); I42.9 Cardiomyopathy, unspecified; I48.0 Paroxysmal atrial fibrillation; I50.23 Acute on chronic systolic (congestive) heart failure; Z95.810 Presence of automatic (implantable) cardiac defibrillator; E78.5 Hyperlipidemia, unspecified; Z95.9 Presence of cardiac and vascular implant and graft, unspecified; K21.9 Gastro-esophageal reflux disease without esophagitis; I11.0 Hypertensive heart disease with heart failure
CPT/HCPCS: 36415; 80048; 80061; 80076; 85025; 85347; 92928; 92972; 93454; 99152; 99153; C1725; C1761; C1769; C1876; C9600; G0378; J1644; Q9967

== ENCOUNTER 2024-02-17 10:37 | Outpatient (CLI) | payer MEDICARE, SELFPAY ==
--- NOTE | 2024-02-17 10:38 | CA_ITS ---
APPROVED REPORT EXAM: Limited 2D Echocardiogram Apple Sorter: Emma Alfaro CRT Ht: 6 ft 1 in Wt: 178lbs BSA: 2.05 BP: 122/75 mmHg Indications: EF CHECK. ECHO 12/14/23 30%, CATH 10/30/23 EF 35-40% at outside facility M-Mode Dimensions RVDd 3.31 cm (0.9-2.6) LA Diam 2.77 cm (1.9-4.0) LVDd 5.18 cm (3.5-5.7) LVDs 3.27 cm (3.5-5.7) IVSd 1.44 cm (0.6-1.1) PWd 1.02 cm (0.6-1.1) EF (Teich) 66.40% FS 36.90% EDV (Teich) 128.40 mL ESV (Teich) 43.20 mL Other Information Study Quality: Fair Conclusion This is a limited TTE to evaluate for LVEF. Limited windows were obtained. The left ventricle is normal in size. Proximal septal thickening is noted. There is mild reduction in global LV systolic function. The septum is asynchronous. LVEF is 45%. The right ventricle is mildly dilated. There is low-normal RV systolic function. A device lead is noted in the right ventricle. When directly compared to prior study from 12/2023, the biventricular systolic function has improved. Electronically signed by : Shruthi Mcmillan MD 02/21/2024 15:53:09
== END 2024-02-17 23:59 | disposition home or self-care (01) ==
LOC: RT 10:38
PROVIDERS: PCP Family Medicine; Visit Provider Physician Assistant
DX: I50.23 Acute on chronic systolic (congestive) heart failure (principal)
CPT/HCPCS: 93308

== ENCOUNTER 2024-08-24 15:12 | Outpatient (CLI) | payer MEDICARE, SELFPAY ==
[2024-08-24 15:28] LABS: Basophils # 0.1 K/mm3 (0-0.2); Basophils % 1.2 % (0.1-2.0); Eosinophils # 0.3 K/mm3 (0.0-0.4); Eosinophils % 3.9 % (0.1-12.0); Hematocrit 37.9 % (42.0-52.0); Hemoglobin 13.2 g/dL (14.1-18.0); Lymphocytes # 2.3 K/mm3 (0.7-4.5); Lymphocytes % 33.2 % (10-50); Mean Corpuscular HGB Conc 34.7 g/dL (31.8-35.4); Mean Corpuscular Hemoglobin 32.7 pg (27.0-31.2); Mean Corpuscular Volume 94.3 fl (80-94); Mean Platelet Volume 8.2 fl (7.4-10.4); Monocytes # 0.5 K/mm3 (0.1-1.0); Monocytes % 7.1 % (1.7-9.3); Neutrophils # 3.8 K/mm3 (1.8-7.8); Neutrophils % 54.6 % (37.0-80.0); Platelet Count 145 K/mm3 (142-424); Red Blood Count 4.02 M/mm3 (4.60-6.20); Red Cell Distribution Width 13.4 % (11.5-17.5); White Blood Count 6.9 K/mm3 (4.8-10.8)
[2024-08-24 16:14] LABS: Alanine Aminotransferase 14 U/L (12-78); Albumin Level 4.3 g/dl (3.5-5.0); Alkaline Phosphatase 70 U/L (38-126); Anion Gap 8.3 mEq/L (5-15); Aspartate Amino Transferase 28 U/L (17-59); Bilirubin,Direct 0.3 mg/dl (0.0-0.4); Bilirubin,Indirect 0.2 mg/dL (0.0-0.9); Bilirubin,Total 0.5 mg/dl (0.2-1.3); Bilirubin,Unconjugated 0.2 mg/dL (0.0-1.1); Blood Urea Nitrogen 24 mg/dl (9-20); Calcium 9.2 mg/dl (8.4-10.2); Carbon Dioxide 33 mmol/L (22.0-30.0); Chloride 104 mmol/L (98-107); Chol/HDL Ratio 5.7 (1-3.5); Cholesterol 222 mg/dl (140-200); Estimated Glomerular Filt Rate 48 ml/min (>60); GFR (African American) 58 ML/MIN (>60); Glucose 106 mg/dl (74-100); HDL Cholesterol 39 mg/dl (40-60); Magnesium 1.8 mg/dl (1.6-2.3); Potassium 4.3 mmoL/L (3.5-5.1); Sodium 141 mmol/L (136-145); Triglycerides 352 mg/dl (30-150); VLDL Cholesterol 70 mg/dL (0-40)
[2024-08-24 16:25] LABS: Direct LDL Cholesterol 118.65 mg/dL (100-129)
[2024-08-24 16:29] LABS: Free T4 (Free Thyroxine) 1.04 ng/dl (0.78-2.19)
[2024-08-24 16:45] LABS: Thyroid Stimulating Hormone 1.35 uIU/mL (0.465-4.68)
== END 2024-08-24 23:59 | disposition home or self-care (01) ==
LOC: LAB 15:13
PROVIDERS: PCP Family Medicine; Visit Provider Physician Assistant
DX: I50.23 Acute on chronic systolic (congestive) heart failure (principal); Z95.0 Presence of cardiac pacemaker; I48.0 Paroxysmal atrial fibrillation; I10 Essential (primary) hypertension; I42.9 Cardiomyopathy, unspecified
CPT/HCPCS: 36415; 80048; 80061; 80076; 83735; 84439; 84443; 85025

== ENCOUNTER 2025-04-03 13:05 | Outpatient (CLI) | payer MEDICARE, SELFPAY ==
--- NOTE | 2025-04-03 13:00 | CA_ITS ---
APPROVED REPORT EXAM: Comprehensive 2D, Doppler, and color-flow Echocardiogram Database Technician: Carmen Martinez RT(R) Ht: 6 ft 1 in Wt: 176lbs BSA: 2.04 BP: 138/86 mmHg Indications: AFIB, HFrEF, CHF, HTN, pacemaker. EF 12/2023 30%, echo 02/17/24 EF 45%. Echo Enhancing Agent Indication: Endocardial border delineation Agent(s) / Amount(s) Used: Definity 2 cc 2D Dimensions LA Volume 25.10 mL LA Volume Index 12.30 mL/m2 (M/F) 16-34 EF AP4 54.80 % GL Strain -13.6 % M-Mode Dimensions RVDd 3.06 cm (0.9-2.6) LA Diam 3.24 cm (1.9-4.0) LVDd 3.44 cm (3.5-5.7) LVDs 2.68 cm (3.5-5.7) IVSd 0.93 cm (0.6-1.1) PWd 0.59 cm (0.6-1.1) EF (Teich) 45.70% FS 22.10% EDV (Teich) 48.80 mL ESV (Teich) 26.50 mL LV Diastology E Decel Time 293 (160-240 msec) E/A Ratio 0.6 Mitral Valve MV E Max Joe. 56.0 (40-130 cm/s) MV A Velocity 90.0 (40-130 cm/s) E/A Ratio 0.62 MV PHT 86.0 ms Tricuspid Valve TR P. Velocity 271.00 cm/s RAP Estimate 10.00 mmHg RVSP 39.40 mmHg Left Ventricle The left ventricle is normal size. The left ventricular systolic function is mildly reduced. There is increased LV wall thickness. The septum is asynchronous. Diastolic function is indeterminate. LVEF is 45%. Right Ventricle Right ventricle is mildly dilated. Right ventricle is mildly hypokinetic. There is a device lead in the right ventricle. Atria Left atrium is mildly dilated. Right atrium is mildly dilated. There is no Doppler evidence of interatrial shunt. Aortic Valve Aortic valve is mildly thickened. There is no aortic valvular stenosis. Trace aortic regurgitation. Mitral Valve The mitral valve is normal in structure. No evidence of mitral valve stenosis. Trace mitral regurgitation. Tricuspid Valve Tricuspid valve is grossly normal in structure and function. Mild tricuspid regurgitation. RVSP 25???30 mmHg. Pulmonic Valve The pulmonary valve is normal in structure. Trace pulmonic regurgitation. Great Vessels The aortic root is normal in size. IVC is normal in size and collapses >50% with inspiration. Pericardium There is no pericardial effusion. Other Information Study Quality: Fair Conclusion Mildly reduced LV systolic function (LVEF 45%). Mild RV dilation with mild reduction in RV function. Mild biatrial dilation. Mild TR. Electronically signed by : Shruthi Mcmillan MD 04/11/2025 00:13:48
[2025-04-03] MEDS: DEFINITY US ECHO CONTRAST 2ML INJ 2 MG IV (14:00)
== END 2025-04-03 23:59 | disposition home or self-care (01) ==
LOC: RT 13:06
PROVIDERS: PCP Family Medicine; Visit Provider Physician Assistant
DX: I07.1 Rheumatic tricuspid insufficiency (principal); I11.0 Hypertensive heart disease with heart failure; I50.23 Acute on chronic systolic (congestive) heart failure; I25.10 Atherosclerotic heart disease of native coronary artery without angina pectoris; I48.91 Unspecified atrial fibrillation; R93.1 Abnormal findings on diagnostic imaging of heart and coronary circulation; Z95.818 Presence of other cardiac implants and grafts
CPT/HCPCS: 93306; Q9957

== ENCOUNTER 2025-07-24 10:51 | Emergency (ER) | payer MEDICARE, SELFPAY ==
--- OUTSIDE RECORDS SUMMARY | 2020-06-29 20:00 | XMS_ITS | Continuity of Care Document ---
Author Organization [facility] Address [address] [place] [address] Phone Care Team Providers Care Business Management Professor Name Role Phone Reuben Hicks MD Unavailable Unavailable Procedures Procedure Date CRITICAL CARE, FIRST HOUR CRITICAL CARE, ADDL 30 MIN Advance Directives Directive Yes / No Effective Date File Name No Information Encounters Encounter Description Practice Location Reason(s) For Visit Diagnoses Date Provider CRITICAL CARE, FIRST HOUR [facility], [address] [facility] [place], [place], [id number], [place] tel:[phone] [address] [place] [address] No Information 2019 Bader Reuben. [address] [place] [address] [place], [id number], [place]. tel:[phone] [facility], [address] [place], [place], [id number], [place] tel:[phone] [address] [place] [address] No Information 2019 Kurt Reuben. [address] [place] [address] [place], [id number], [place]. tel:[phone] [facility], [address] [facility] [place], [id number], [place] tel:[phone] [address] [place] [address] No Information 2019 Mendel Cummins. [address] [place] [address] [place], [id number], [place]. tel:[phone] [facility], [address] [facility] [place], [id number], [place] tel:[phone] [address] [place] [address] No Information 2019 Mendel Cummins. [address] [place] [address], [place], [id number], [place]. tel:[phone] Family History Family Member Type Diagnosis Age At Onset No Information Payers Payer name Insurance type Covered republican ID Abbie graff(s) [facility] [id number] Social History Type Description Quantity Date Captured Comments Sex Male Smoking Status No Information Chief Complaint And Reason For Visit No Information History Of Present Illness Encounter Date Complaint History Of Prese nt Illness No Information Instructions Date Instruction Additional Infor mation No Information Assessments Type Assessment Date No Information
--- OUTSIDE RECORDS SUMMARY | 2025-05-26 09:30 | XMS_ITS | Encounter Summary ---
Author Organization [place] [address] Care Team Providers Care Inbound Sales Manager Name Role Phone Rosalino Pichardo DO Primary Care Provider [phone] Jose Hinds MD Unavailable Marlo Davison MD Unavailable [phone] Reason for Referral * Consultation (Routine) - Pending Review Specialty Diagnoses / Procedures Referred By Earline obando Referred To Contact Otolaryngology Diagnoses Bilateral hearing loss, unspecified hearing loss type Procedures PA OFFICE/OUTPATIENT NEW MODERATE MDM 45 MINUTES Rosalino Pichardo DO [address] [place] [address] Phone: tel: fax: [facility] [address] [address] Phone: tel: fax: Referral ID Status Reason Start Date Expiration Date V isits Requested Visits Authorized [id number] Pending Review 05/26/2025 05/26/2026 99 99 Reason for Visit * Reason Comments Arm Pain left shoulder x 1 ye ar Foot Pain Right great toe has open wound on the inside Left foot feels like theres a bruise on heel Discoloraton on left great toe Dizziness Pt states when he st ands up he gets dizzy Encounter Details Date Type Department Care Team (Late st Contact Info) Description 05/26/2025 9:30 AM EDT Office Visit [facility] [address] [id number] [place], [address] [id number] OM (onychomycosis) (Primary Dx); Paronychia of great toe of right foot; Essential hypertension; Screening PSA (prostate specific antigen); Chronic left shoulder pain; Bilateral hearing loss, unspecified hearing loss type Social History Tobacco Use Types Packs/Day Years Used Date Smoking Tobacco: Former Cigarettes 3 15 1 955 - 1969 Passive Smoke Exposure: Past Smokeless Tobacco: Never Tobacco Cessation:Counseling Given: Not Answered Alcohol Use Standard Drinks/Week Comments Yes 1 (1 standard drink = 0.6 oz pur e alcohol) 3 a month PHQ-2 Answer Date Recorded PHQ-2 Total Score 0 01/05/2025 Sexually Active Control Partners Comments Yes Female Sex and Gender Information Value Date Recorded Sex Assigned at Not on file Legal Sex Male 6:08 AM EDT Gender Identity Not on file Sexual Orientation Not on file documented as of this encounter Last Filed Vital Signs Vital Sign Reading Time Taken Comments Blood Pressure 122/60 05/26/2025 9:33 AM EDT Pulse - - Temperature 36.7 C (98.1 F) 05/26/2025 9:33 AM EDT Respiratory Rate - - Oxygen Saturation - - Inhaled Oxygen Concentration - - Weight 78.9 kg (174 lb) 05/26/2025 9:33 AM EDT Height 185.4 cm (6' 1 ) 05/26/2025 9:33 AM EDT Body Mass Index 22.96 05/26/2025 9:33 AM EDT documented in this encounter Functional Status * Is the person deaf or does he/she have serious difficulty hearing? Answer Date of Assessment Author Yes 01/05/2025 8:41 AM Carlee Anderson MA * Is the person blind or does he/she have serious difficulty seeing even when wearing glasses? Answer Date of Assessment Author No 01/05/2025 8:41 AM Carlee Anderson MA * Does this person have serious difficulty walking or climbing stairs? Answer Date of Assessment Author Yes 01/05/2025 8:41 AM Carlee Anderson MA * Does this person have difficulty dressing or bathing? Answer Date of Assessment Author No 01/05/2025 8:41 AM Carlee Anderson MA * Because of a physical, mental or emotional condition, does this person have difficulty doing errands alone such as visiting a doctor's office or shopping? Answer Date of Assessment Author No 01/05/2025 8:41 AM Carlee Anderson MA documented as of this encounter Mental Status * Because of a physical, mental or emotional condition, does this person have serious difficulty concentrating, remembering or making decisions? Answer Entry Date Author No 01/05/2025 8:41 AM Carlee Anderson MA documented in this encounter Ordered Prescriptions Prescription Sig Dispense Quantity Refills Last Filled Start Date End Date terbinafine HCL (LAMISIL) 250 mg Oral TabletIndications: OM (onychomycosis) Take 1 Tablet by mouth daily. 90 Tablet 05/26/2025 sulfamethoxazole-t rimethoprim (BACTRIM DS) 800-160 mg Oral TabletIndications: Paronychia of great toe of right foot Take 1 Tablet by mouth every 12 hours for 10 days. 20 Tablet 05/26/2025 06/05/2025 documented in this encounter Progress Notes * Rosalino Pichardo DO - 05/26/2025 9:30 AM EDTAssociated Problem(s): Essential hypertension Orders: LIPID SCREEN; Future HEPATIC FUNCTION PANEL; Future BASIC METABOLIC PANEL; Future * Rosalino Pichardo DO - 05/26/2025 9:30 AM EDT Vitals: 05/26/25 0933 BP: 122/60 Temp: 98.1 ??F (36.7 ??C) TempSrc: Tympanic Weight: 174 lb (78.9 kg) Height: 6' 1 (1.854 m) Body mass index is 22.96 kg/m??. SUBJECTIVE: Chief Complaint Patient presents with Arm Pain left shoulder x 1 year Foot Pain Right great toe has open wound on the inside Left foot feels like theres a bruise on heel Discoloraton on left great toe Dizziness Pt states when he stands up he gets dizzy HPI: Arm Pain The pain is present in the left shoulder. This is a recurrent problem. The current episode started more than 1 year ago. There has been no history of extremity trauma. The problem occurs constantly. The problem has been unchanged. The quality of the pain is described as pounding and aching. The pain is at a severity of 4/10. The pain is mild. Pertinent negatives include no fever. The symptoms areaggravated by activity. He has tried nothing for the symptoms. The treatment provided no relief. Foot Pain The pain is present in the right toes. This is a new problem. The current episode started 1 to 4 weeks ago. There has been no history of extremity trauma. The problem occurs constantly. The problem has been unchanged. The quality of the pain is described as sharp. The pain is at a severity of 4/10.The pain is mild. Pertinent negatives include no fever. The symptoms are aggravated by activity. Hehas tried nothing for the symptoms. The treatment provided no relief. Dizziness This is a new problem. The current episode started 1 to 4 weeks ago. The neurological problem developed suddenly. The problem is unchanged. Associated symptoms include dizziness. Pertinent negatives include no abdominal pain, fatigue, fever, nausea or vomiting. Past treatments include nothing. The t reatment provided no relief. Presents today for eval of drainage from big toe right foot. Also admits to thick, brittle toenails Also to left shoulder pain. Denies trauma. States been like for a year Review of Systems Constitutional: Negative for fatigue and fever. HENT: Negative for congestion and sinus pressure. Respiratory: Negative for cough. Gastrointestinal: Negative for abdominal pain, diarrhea, nausea and vomiting. Skin: Positive for wound. Negative for rash. Neurological: Positive for dizziness. Psychiatric/Behavioral: The patient is not nervous/anxious. OBJECTIVE: Physical Exam Constitutional: Appearance: Normal appearance. Cardiovascular: Rate and Rhythm: Normal rate and regular rhythm. Heart sounds: Normal heart sounds. No murmur heard. Pulmonary: Effort: Pulmonary effort is normal. Breath sounds: Normal breath sounds. Abdominal: General: There is no distension. Palpations: Abdomen is soft. Skin: Comments: Erythema noted to lateral aspect big toe right foot Thick, brittle toenails noted Neurological: Mental Status: He is alert. Assessment & Plan OM (onychomycosis) Orders: terbinafine HCL (LAMISIL) 250 mg Oral Tablet; Take 1 Tablet by mouth daily. Paronychia of great toe of right foot Orders: sulfamethoxazole-trimethoprim (BACTRIM DS) 800-160 mg Oral Tablet; Take 1 Tablet by mouth every 12 hours for 10 days. Essential hypertension Orders: LIPID SCREEN; Future HEPATIC FUNCTION PANEL; Future BASIC METABOLIC PANEL; Future Screening PSA (prostate specific antigen) Orders: PROSTATE SPECIFIC ANTIGEN (SCREENING); Future Chronic left shoulder pain Orders: methylPREDNISolone acetate (DEPO-Medrol) injection 120 mg Bilateral hearing loss, unspecified hearing loss type Orders: AMB REFERRAL TO ENT Above problems were discussed with patient and all are stable except otherwise noted. Continue medications as prior. Refills done as requested. Blood work done. Will adjust medications by phone as needed based on lab results and as noted. Follow up for any changes and as directed Educated patient regarding the care plan and instructions listed on the After Visit Summary [AVS] for today's visit. The patient verbalized full understanding of the care plan and instructions given on the AVS for today's visit. documented in this encounter Plan of Treatment Scheduled Referrals Name Type Priority Associated Diagnoses Orde r Schedule AMB REFERRAL TO ENT Outpatient Referral Routine Bilateral hearing loss, unspecified hearing loss type Ordered: 05/26/2025 documented as of this encounter Goals Goal Patient Goal Type Associated Problems Recent Progress Patient-Stated? Author Blood Pressure < 140/90 Blood Pressure 121/66(2024 12:11 PM EDT) No Akilah Loredo RMA Maintain a healthy diet, exercise regularly and maintain an ideal body weight General No Emerald Patterson RMA Stay Tobacco Free Lifestyle No Emerald Patterson RMA documented as of this encounter Procedures Procedure Name Priority Date/Time Associated Diagnosis Comments PROSTATE SPECIFIC ANTIGEN (SCREENING) Routine 05/26/2025 10:07 AM EDT Screening PSA (prostate specific antigen) HEPATIC FUNCTION PANEL Routine 05/26/2025 10:07 AM EDT Essential hypertension LIPID SCREEN Routine 05/26/2025 10:07 AM EDT Essential hypertension BASIC METABOLIC PANEL Routine 05/26/2025 10:07 AM EDT Essential hypertension documented in this encounter Results * (ABNORMAL) PROSTATE SPECIFIC ANTIGEN (SCREENING) (05/26/2025 10:07 AM EDT) Total Psa 9.12(H) <=4.00 ng/mL 05/26/2025 4:53 PM EDT [facility] Blood VENOUS BLOOD / Unknown Venipuncture / Unknown 05/26/2025 10:07 AM EDT 05/26/2025 10:07 AM EDT Narrative [facility] - 05/26/2025 4:53 PM EDT The Kerrie Elecsys total PSA electrochemiluminescence (ECLIA) immunoassay is used. Results obtained with different test methods or kits cannot be used interchangeably. The Kerrie method is approved for use as an aid in the detection of prostate cancer when used in conjunction with a digital rectal exam in individuals with a prostate aged 50 years or older. The assay is also indicated for the serial measurement of PSA to aid in the prognosis and management of prostate cancer patients. Elevated tPSA concentrations can only suggest the presence of prostate cancer until biopsy is performed. Levels may also be elevated in benign prostatic hyperplasia or inflammatory conditions of the prostate. Rosalino Pichardo DO CHEMISTRY ORDERABLES Final Resu lt [email or web address] [address] [facility] , [place] [address] * (ABNORMAL) BASIC METABOLIC PANEL (05/26/2025 10:07 AM EDT) Sodium 139 136 - 145 mmol/L 05/26/2025 4:51 PM EDT [facility] Potassium 4.4 3.5 - 5.0 mmol/L 05/26/2025 4:51 PM EDT [facility] [employer] Chloride 102 98 - 107 mmol/L 05/26/2025 4:51 PM EDT [facility] Total CO2 26 22 - 29 mmol/L 05/26/2025 4:51 PM EDT [facility] Anion Gap 11 7 - 16 mmol/L 05/26/2025 4:51 PM EDT [facility] Calcium 9.3 8.8 - 10.4 mg/dL 05/26/2025 4:51 PM EDT [facility] Glucose Lvl 110(H) 70 - 99 mg/dL 05/26/2025 4:51 PM EDT [facility] BUN 30(H) 8 - 23 mg/dL 05/26/2025 4:51 PM EDT [facility] Creatinine 1.45(H) 0.67 - 1.30 mg/dL 05/26/2025 4:51 PM EDT [facility] eGFR (CKD-EPIcr 2020) 47(L) >=60 mL/min/1.7 3 m2 05/26/2025 4:51 PM EDT [facility] Comment:Estimated GFR was ca lculated using the CKD-EPIcr (2020) equation refit without race. The equation is recommended by the National Kidney Foundation - [place] [employer] of Nephrology Task Force. Blood VENOUS BLOOD / Unknown Venipuncture / Unknown 05/26/2025 10:07 AM EDT 05/26/2025 10:07 AM EDT us Rosalino Pichardo DO CHEMISTRY ORDERABLES Final Resu lt [facility] [address] [facility] , [address] [place] [id number] * HEPATIC FUNCTION PANEL (05/26/2025 10:07 AM EDT) Total Protein 7.2 6.4 - 8.3 gm/dL 05/26/2025 4:51 PM EDT [facility] Albumin 4.1 3.2 - 4.6 gm/dL 05/26/2025 4:51 PM EDT [facility] Bili Direct <0.2 0.0 - 0.3 mg/dL 05/26/2025 4:51 PM EDT [facility] Bili Total 0.3 0.2 - 1.4 mg/dL 05/26/2025 4:51 PM EDT [facility] AST 21 <=40 U/L 05/26/2025 4:51 PM EDT [facility] ALT 10 <=41 U/L 05/26/2025 4:51 PM EDT [facility] Alk Phos 89 40 - 129 U/L 05/26/2025 4:51 PM EDT [facility] Blood VENOUS BLOOD / Unknown Venipuncture / Unknown 05/26/2025 10:07 AM EDT 05/26/2025 10:07 AM EDT us Rosalino Marino DO CHEMISTRY ORDERABLES Final Resu lt [facility] [address] [facility] , [place] [address] * (ABNORMAL) LIPID SCREEN (05/26/2025 10:07 AM EDT) Cholesterol 131 <200 mg/dL 05/26/2025 4:51 PM EDT [email or web address] Comment: < 200 Desirable 200 - 239 Borderline High >= 240 High Triglyceride 132 <150 mg/dL 05/26/2025 4:51 PM EDT [email or web address] Comment: < 150 Normal 150 - 199 Borderline High 200 - 499 High >= 500 Very High HDL 39(L) >=40 mg/dL 05/26/2025 4:51 PM EDT [email or web address] Comment: > 60 Optimal 40 - 60 Acceptable < 40 Low LDL Calculated 69 <100 mg/dL 05/26/2025 4:51 PM EDT [email or web address] Comment: < 100 Optimal 100 - 129 Near or above optimal 130 - 159 Borderline High 160 - 189 High >= 190 Very High The National Institutes of Health (NIH) equation is used for all lipid panels that report calculated LDL (LDL-C). Non-HDL-C Calculated 92 <=129 mg/dL 05/26/2025 4:51 PM EDT [email or web address] Comment: <130 Desirable 130-159 Above Desirable 160-189 Borderline High 190-219 High >= 220 Very High Fasting Specimen? Yes None 025 4:51 PM EDT [email or web address] Blood VENOUS BLOOD / Unknown Venipuncture / Unknown 05/26/2025 10:07 AM EDT 05/26/2025 10:07 AM EDT Rosalino Keycradam TREVINO CHEMISTRY ORDERABLES Final Resu lt [facility] [address] [facility] , [place] [address] documented in this encounter Visit Diagnoses Diagnosis OM (onychomycosis)- Primary Dermatophytosis of nail Paronychia of great toe of right foot Onychia and paronychia of toe Essential hypertension Unspecified essential hypertension Screening PSA (prostate specific antigen) Special screening for malignant neoplasm of prostate Chronic left shoulder pain Pain in joint, shoulder region Bilateral hearing loss, unspecified hearing loss type documented in this encounter Administered Medications Inactive Administered Medications - up to 1 most recent administrations Medication Order MAR Action Action Date Dose Rate Site methylPREDNISolone acetate (DEPO-Medrol) injection 120 mg 120 mg, Intramuscular, ONCE, 1 dose, On Thu05/26/25 at 1000, Dx: 1. Chronic left shoulder painIndications:Chronic left shoulder pain Given 05/26/2025 10:07 AM EDT 120 mg Right upper gluteus documented in this encounter Additional Health Concerns Assessment Noted Time A fall risk assessment has been complete d for the patient 05/26/2025 9:33 AM EDT documented as of this encounter Care Teams Inbound Sales Manager Relationship Specialty Start Date End Date Rosalino Pichardo DO [address] [place] [address] PCP - General 07/13/09 Jose Hinds MD [address] [facility] [place] [address] Consulting Physician Internal Medicine - Clinical Cardiac Electrophysiology 04/16/17 Marlo Davison MD [address] [place] [id number] Internal Medicine-Cardiovascular Disease 12/21/23 documented as of this encounter
--- OUTSIDE RECORDS SUMMARY | 2025-06-23 12:30 | XMS_ITS | Encounter Summary ---
Author Organization [facility] Address [address] [facility] [address] [place] [address] Care Team Providers Care Canceling And Cutting Control Clerk Name Role Phone Rosalino Pichardo DO Primary Care Provider [phone] Jose Hinds MD Unavailable [phone] Marlo Davison MD Unavailable [phone] Reason for Referral * (Routine) - Pending Review Specialty Diagnoses / Procedures Referred By Earline obando Referred To Contact Diagnoses Abnormal auditory perception of both ears Procedures [facility] Hunter Cali MD [address] [facility] [address] [place] [address] Phone: tel: fax: Referral ID Status Reason Start Date Expiration Date V isits Requested Visits Authorized [id number] Pending Review 06/23/2025 06/23/2026 1 1 Reason for Visit * Reason Comments New Patient * Consultation (Routine) - Pending Review Specialty Diagnoses / Procedures Referred By Earline obando Referred To Contact Otolaryngology Diagnoses Bilateral hearing loss, unspecified hearing loss type Procedures AK OFFICE/OUTPATIENT NEW MODERATE MDM 45 MINUTES Rosalino Pichardo DO [address] [place] [address] Phone: tel: fax: [facility] [address] [place] [address] [place] [address] Phone: tel: fax: Referral ID Status Reason Start Date Expiration Date V isits Requested Visits Authorized [id number] Pending Review 05/26/2025 05/26/2026 99 99 Encounter Details Date Type Department Care Team (Latest Contact Info) Description 06/23/2025 12:30 PM EDT Office Visit [facility] [place] [address] [facility] [address] [place] [address] Hunter Cali MD [address] [facility] [address] [place] [address] Sensorineural hearing loss (SNHL), bilateral (Primary Dx); Otitis externa, fungal, right ear; Abnormal auditory perception of both ears Social History Tobacco Use Types Packs/Day Years Used Date Smoking Tobacco: Former Cigarettes 3 15 1 955 - 1969 Passive Smoke Exposure: Past Smokeless Tobacco: Never Alcohol Use Standard Drinks/Week Comments Yes 1 [...] Sign Reading Time Taken Comments Blood Pressure 121/66 06/23/2025 12:11 PM EDT Pulse 60 06/23/2025 12:11 PM EDT Temperature 36.7 C (98.1 F) 06/23/2025 12:11 PM EDT Respiratory Rate - - Oxygen Saturation - - Inhaled Oxygen Concentration - - Weight 77.1 kg (170 lb) 06/23/2025 12:11 PM EDT Height 185.4 cm (6' 1 ) 06/23/2025 12:11 PM EDT Body Mass Index 22.43 06/23/2025 12:11 PM EDT documented in this encounter Functional Status [...] Carlee Anderson MA documented in this encounter Progress Notes * Hunter Cali MD - 06/23/2025 12:30 PM EDT Images from the original note were not included. Hunter Weiss 1935 89 y.o. male 06/23/2025 New Patient - Hearing Loss, Vertigo, or Tinnitus Hunter Cali MD, [facility] Referring Provider: Rosalino Pichardo DO Chief Complaint Patient presents with ??? New Patient HPI Hunter Weiss is a 89 y.o. male who is being seen in consultation at the request of Rosalino Pichardo DO for hearing loss. Symptoms first started 11 year(s) ago. Symptoms had a gradual onset? Yes Symptoms had a sudden onset? 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 Yes- sometimes Is there a family history of hearing loss? no Has the patient received Chemotherapy? No Does the patient had a history of receiving Gentamycin IV antibiotics? No Any Previous hearing testing? no Does the patient have any trouble with anesthesia? no Is there a family history of: Trouble with anesthesia? no Malignant Hyperthermia (high fever due to anesthesia)? no Pseudo cholinesterase deficiency (enzyme deficiency/very long time to wake from anesthesia)? no Has the patient tested positive for COVID-19 in the past 5 days? No Has the patient experienced any NEW onset: fever; cough; sore throat; vomiting; or diarrhea? No Medical History: Past Medical History: Diagnosis Date ??? CAD (coronary artery disease) ??? Complete heart block (HCC) 04/01/2017 S/P Medtronic dual chamber pacemaker implant 04/02/2017 (Dr. Hinds) ??? Hearing aid worn ??? Hiatal hernia with GERD and esophagitis 04/02/2017 ??? History of esophageal stricture 04/02/2017 ??? HTN (hypertension) ??? Hypercholesteremia ??? Pericarditis ~2016 I have gone through Cardiac Rehab and now exercise on my own 4 days a week ??? Pneumonia ~2015 ??? Status post myocardial infarction 09/01/2017 Patient Active Problem List Diagnosis Date Noted ??? Cardiomyopathy (HCC) 02/18/2024 ??? Chronic combined systolic (congestive) and diastolic (congestive) heart failure (HCC) 02/18/2024 Documented on 02/04/2022 by ROSALINO PICHARDO ??? Dizziness 02/18/2024 ??? Hx of chronic congestive heart failure 02/18/2024 ??? Atherosclerosis of left anterior descending (LAD) artery 02/18/2024 ??? Left main coronary artery disease 02/18/2024 ??? Presence of biventricular AICD 02/18/2024 ??? Atrial fibrillation (HCC) 10/08/2023 ??? 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 Diarrhea 08/01/2020 Added automatically from request for surgery [id number] ??? Lumbar degenerative disc disease 02/02/2020 ??? Lumbosacral spondylosis without myelopathy 02/02/2020 ??? 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 Presence of drug coated stent in left circumflex coronary artery 12/23/2017 ??? AF (paroxysmal atrial fibrillation) ([facility]) 12/23/2017 ??? Posterior subcapsular polar senile cataract of right eye 09/17/2017 Added automatically from request for surgery [id number] ??? Combined systolic and diastolic congestive heart failure ([facility]) 09/02/2017 ??? NSTEMI (non-ST elevated myocardial infarction) ([facility]) 09/01/2017 ??? Pacemaker S/P dual chamber pacemaker, Medtronic by Dr. Hinds on 04/02/17 ??? 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 Hiatal hernia with GERD and esophagitis 04/02/2017 ??? History of esophageal dilatation 04/02/2017 ??? History of esophageal stricture 04/02/2017 ??? Complete heart block ([facility]) 04/01/2017 S/P Medtronic dual chamber pacemaker implant 04/02/2017 (Dr. Hinds) ??? Vitamin D deficiency 09/28/2012 ??? Hypercholesteremia Class: Chronic ??? Essential hypertension Class: Chronic ??? Hearing aid worn Class: Chronic Worn in both ears Current Outpatient Medications Medication Instructions ??? acetaminophen (TYLENOL) 1,000 mg, 4 TIMES DAILY PRN ??? amLODIPine (NORVASC) 5 mg, DAILY ??? atorvastatin (LIPITOR) 40 mg, DAILY ??? atorvastatin (LIPITOR) 80 mg, DAILY ??? carvediloL (COREG) 6.25 mg, 2 TIMES DAILY ??? carvediloL (COREG) 12.5 mg, 2 TIMES DAILY ??? Cholecalciferol (Vitamin D3) 5,000 Units, DAILY ??? clopidogreL (PLAVIX) 75 mg, Oral, DAILY ??? esomeprazole (NEXIUM) 20 mg, PRN ??? FA/MV,CA,IRON,MIN/LYCOPENE/LUT (MULTIVITAL ORAL) 1 Tablet, DAILY ??? GLUCOSAMINE/CHONDROITIN SULF A (GLUCOSAMINE-CHONDROITIN ORAL) 1 Tablet, DAILY ??? HYDROcodone-acetaminophen (NORCO) 10-325 mg Oral Tablet 1 Tablet, Oral, EVERY 8 HOURS PRN ??? hydrocortisone 2.5 % Top Cream Topical, 2 TIMES DAILY ??? isosorbide mononitrate (IMDUR) 30 mg, Oral, DAILY ??? isosorbide mononitrate (IMDUR) 120 mg, DAILY ??? nitroGLYCERIN (NITROSTAT) 0.4 mg, Sublingual, EVERY 5 MIN PRN ??? olmesartan-hydrochlorothiazide (BENICAR HCT) 40-25 mg Oral Tablet 1 Tablet, Oral, DAILY ??? PSYLLIUM HUSK (METAMUCIL ORAL) DAILY ??? terbinafine HCL (LAMISIL) 250 mg, Oral, DAILY ??? XARELTO 20 mg, Oral, DAILY Allergies Allergen Reactions ??? Lipitor [Atorvastatin] Myalgia Patients requested note be placed in chart that patient cannot take the statin medications. ??? Lisinopril Other (See Comments) Pt and say that he can't take it and he was taken off of it after he had some problems patient stated, I think I had chest pain with this medication . Here in the hospital, he took lisinopril without realizing it for 3 days without any problems but does not want to go home on it. Harris Moscoso MD 04/03/2017 10:48 AM Past Surgical History: Procedure Laterality Date ??? CATARACT EXTRACTION W/ INTRAOCULAR LENS IMPLANT Left ??? CATARACT REMOVAL Right 03/16/2018 ??? CATARACT REMOVAL Right 03/16/2018 Right eye CATARACT EXTRACTION WITH PHACOEMULSIFICATION AND INTRAOCULAR LENS; Surgeon: Mauro Guzman MD; Location: [facility]; Service: Ophthalmology ??? CORONARY ANGIOPLASTY 09/02/2017 MARY to OM and left circ ??? IR 2 LEVEL BILATERAL MEDIAL BRANCH BLOCK LUM SAC 12/07/2018 IR 2 LEVEL BILATERAL MEDIAL BRANCH BLOCK LUM SAC 12/07/2018 [facility] ??? IR 2 LEVEL BILATERAL MEDIAL BRANCH BLOCK LUM SAC 01/07/2019 IR 2 LEVEL BILATERAL MEDIAL BRANCH BLOCK LUM SAC 01/07/2019 [facility] ??? PACEMAKER INSERTION Left 04/02/2017 Medtronic, dual chamber pacemaker by Dr. Hinds ??? TONSILLECTOMY AND ADENOIDECTOMY ??? UPPER GASTROINTESTINAL ENDOSCOPY N/A 10/07/2016 ESOPHAGOGASTRODUODENOSCOPY with balloon dilation; Surgeon: Hunter Aguirre MD; Location: [facility]; Service: Endoscopy ??? UPPER GASTROINTESTINAL ENDOSCOPY N/A 12/16/2016 ESOPHAGOGASTRODUODENOSCOPY; Surgeon: Hunter Aguirre MD; Location: [facility]; Service: Endoscopy Social History Tobacco Use ??? Smoking status: Former Current packs/day: 0.00 Average packs/day: 3.0 packs/day for 15.0 years (45.0 ttl pk-yrs) Types: Cigarettes Start date: 1954 Quit date: 1970 Years since quittin.6 Passive exposure: Past ??? Smokeless tobacco: Never Vaping Use ??? Vaping status: Never Used Substance Use Topics ??? Alcohol use: Yes Alcohol/week: 0.6 oz Types: 1 Standard drinks or equivalent per week Comment: 3 a month ??? Drug use: No Family History Problem Relation Age of Onset ??? Heart Attack Mother 60 from it ??? Diabetes Maternal Grandfather multiple amputations from it ??? Asthma Father ??? Early Father ROS Positive: ENT; Decreased hearing Exam: Vitals: 06/23/25 1211 BP: 121/66 BP Location: Right arm Patient Position: Sitting Pulse: 60 Temp: 98.1 ??F (36.7 ??C) Weight: 170 lb (77.1 kg) Height: 6' 1 (1.854 m) Body mass index is 22.43 kg/m??. PROCEDURE NOTE: 06/23/2025 Procedure: Ear Microscope Exam Indication: Right sided fungal otitis externa Surgeon: Hunter Cali MD Anesthesia: None EBL: None Correct site procedure and patient confirmed, informed consent obtained. Description of Procedure: The Operating microscope was used to examine each external auditory canal, tympanic membrane and middle ear structures. Findings: Right Sided Findings: EAC: Fungal debris filling the medial canal, removed and treated with boric acid TM: Intact, translucent MIDDLE EAR: Apparently aerated, visible ossicular structres include handle of malleus and incudostapedial joint which appeared to be intact. Left Side Findings: EAC: Patent with healthy epithelia, no inflammation TM: Intact, translucent MIDDLE EAR: Apparently aerated, visible ossicular structres include handle of malleus and incudostapedial joint which appeared to be intact. Patient tolerated the procedure well. Assessment and Plan: Diagnoses addressed this visit: Right sided fungal otitis externa: Debrided in the office today and boric acid placed. Sensorineural hearing loss: Severe to profound sensorineural hearing loss bilaterally currently managed with OTC hearing aids. Strongly recommend switching to prescription hearing aids with professional tuning given the severity of his loss. He is a candidate for cochlear implantation and we discuss ed this today. If he does not get adequate benefit with professional hearing aids instructed to follow-up to discuss cochlear implantation option. Return in about 1 year (around 06/23/2026) for Recheck hearing, with audio. [facility] [address] [facility] [address] [facility] [phone] This note may have been partially dictated using [employer] voice recognition software and may contain unintended error. * Hunter Cali MD - 06/23/2025 12:30 PM EDT Images from the original note were not included. [facility] AUDIOLOGY AUDIOMETRIC EVALUATION HISTORY Chief complaint: Hearing evaluation; decreased hearing RESULTS OTOSCOPY Right ear: Clear canal and TM visualized Left ear: Clear canal and TM visualized TYMPANOMETRY (226 Hz probe tube) Right ear: Could not obtain tympanometry, due to inability to maintain a seal Left ear: Could not obtain tympanometry, due to inability to maintain a seal AUDIOMETRY: Pure tone air- and bone-conduction audiometry indicated: Transducer: Supra Aural Headphones and Bone Conduction Oscillator Right ear: Moderate to profound predominantly SNHL Left ear: Moderate to profound predominantly SNHL WORD RECOGNITION Right ear: Very poor Left ear: Very poor Binaural: Poor Reliability: Good RECOMMENDATIONS Per uHnter Cali MD. [facility]AE following medical clearance. Hearing protection in noise. IMPRESSION: SNHL, Au. documented in this encounter Plan of Treatment Scheduled Orders Name Type Priority Associated Diagnoses Orde r Schedule AK BINOCULAR MICROSCOPY SEPARATE DX PROCEDURE AK Charge Routine Otitis externa, fungal, right ear Ordered: 06/23/2025 documented as of this encounter Goals Goal Patient Goal Type Associated Problems Recent Progress Patient-Stated? Author Blood Pressure < 140/90 Blood Pressure 121/66(2024 12:11 PM EDT) No Akilah Loredo RMA Maintain a healthy diet, exercise regularly and maintain an ideal body weight General No Emerald Patterson RMA Stay Tobacco Free Lifestyle No Emerald Patterson RMA documented as of this encounter Visit Diagnoses Diagnosis Sensorineural hearing loss (SNHL), bilateral- Primary Otitis externa, fungal, right ear Abnormal auditory perception of both ears documented in this encounter Orders Nursing Count Last Ordered Date First Orde red Date [facility] AUDI[facility] ASSESSMENT 1 06/23/2025 documented in this encounter Additional Health Concerns Assessment Noted Time A fall risk assessment has been complete d for the patient 05/26/2025 9:33 AM EDT documented as of this encounter Care Teams Canceling And Cutting Control Clerk Relationship Specialty Start Date End Date Rosalino Pichardo DO [address] [place] [address] PCP - General 07/13/09 Jose Hinds MD [address] [place] [address] [place] [address] Consulting Physician Internal Medicine - Clinical Cardiac Electrophysiology 04/16/17 Marlo Davison MD [address] [place] [id number] Internal Medicine-Cardiovascular Disease 12/21/23 documented as of this encounter
[2025-07-24 10:55] VITALS: BP 166/88; PULSE 62; RESP 16; TEMP 37.1; O2SAT 96; BMI 21.7
--- OUTSIDE RECORDS SUMMARY | 2025-07-24 10:57 | XMS_ITS | Encounter Summary ---
Author Organization [place] [address] Care Team Providers Care Hook Up Name Role Phone Rosalino Pichardo DO Primary Care Provider [phone] Jose Hinds MD Unavailable [phone] Marlo Davison MD Unavailable [phone] Reason for Referral * Interventional Radiology (Routine) - Closed Specialty Diagnoses / Procedures Referred By Contac t Referred To Contact Radiology Diagnoses Lumbosacral spondylosis without myelopathy Procedures IR 2 LEVEL BILATERAL MEDIAL BRANCH BLOCK LUM SAC Vaibhav Martinez MD [address] [place] [address] Phone: tel: fax: Referral ID Status Reason Start Date Expiration Date Visits Re quested Visits Authorized [id number] Closed 12/08/2018 12/08/2019 1 1 Encounter Details Date Type Department Care Team (Late st Contact Info) Description 12/08/2018 E-Visit [facility] [place] [address] [address] [place] [phone] Vaibhav Martinez MD [address] [place] [address] Repeat Procedure Social History Tobacco Use Types Packs/Day Years Used Date Smoking Tobacco: Former Cigarettes 3 15 1 955 - 1970 Smokeless Tobacco: Never Alcohol Use Standard Drinks/Week Comments Yes 1 (1 standard drink = 0.6 oz pur e alcohol) 3 a month Sex and Gender Information Value Date Recorded Sex Assigned at Not on file Legal Sex Male 6:08 AM EDT Gender Identity Not on file Sexual Orientation Not on file documented as of this encounter Functional Status * Is the person deaf or does he/she have serious difficulty hearing? Answer Date of Assessment Author No 03/09/2018 8:07 AM EDT Emerald Patterson RMA * Is the person blind or does he/she have serious difficulty seeing even when wearing glasses? Answer Date of Assessment Author No 03/09/2018 8:07 AM EDT Emerald Patterson RMA * Does this person have serious difficulty walking or climbing stairs? Answer Date of Assessment Author No 03/09/2018 8:07 AM EDT Emerald Patterson RMA * Does this person have difficulty dressing or bathing? Answer Date of Assessment Author No 03/09/2018 8:07 AM EDT Emerald Patterson RMA * Because of a physical, mental or emotional condition, does this person have difficulty doing errands alone such as visiting a doctor's office or shopping? Answer Date of Assessment Author No 03/09/2018 8:07 AM EDT Emerald Patterson RMA documented as of this encounter Mental Status * Because of a physical, mental or emotional condition, does this person have serious difficulty concentrating, remembering or making decisions? Answer Entry Date Author No 03/09/2018 8:07 AM EDT Emerald Patterson RMA documented in this encounter Plan of Treatment Not on file documented as of this encounter Goals Goal Patient Goal Type Associated Problems Recent Progress Patient-Stated? Author Blood Pressure < 140/90 Blood Pressure 121/66(2024 12:11 PM EDT) No Akilah Loredo RMA Maintain a healthy diet, exercise regularly and maintain an ideal body weight General No Emerald Patterson RMA Stay Tobacco Free Lifestyle No Emerald Patterson RMA documented as of this encounter Results * IR 2 LEVEL BILATERAL MEDIAL BRANCH BLOCK LUM SAC (01/07/2019 10:58 AM EST) Anatomical Region Laterality Modality Interventional R adiology 01/07/2019 10:5 8 AM EST Impressions 01/07/2019 12:08 PM EST Please see OP note in Epic for details. Narrative Procedure Note Jori Byrne MD - 01/07/2019 IMPRESSION: Please see OP note in Epic for details. us Vaibhav Martinez MD IMG IR ORDERABLES Final Result documented in this encounter Visit Diagnoses Diagnosis Lumbosacral spondylosis without myelopathy- Primary Lumbosacral spondylosis without myelopathy documented in this encounter Additional Health Concerns Infection Onset Date Last Indicated Resolved Time R/O C-Diff 07/03/2020 07/03/2020 07/03/2020 3:24 PM EDT R/O COVID-19 09/17/2020 09/18/2020 09/20/2020 8:03 PM EST Assessment Noted Time A fall risk assessment has been complete d for the patient 09/22/2018 9:00 AM EST documented as of this encounter Care Teams Hook Up Relationship Specialty Start Date End Date Rosalino Pichardo DO [address] [place] [address] PCP - General 07/13/09 Jose Hinds MD [address] [place] [id number] Consulting Physician Internal Medicine - Clinical Cardiac Electrophysiology 04/16/17 Marlo Davison MD [address] [place] [phone] Internal Medicine-Cardiovascular Disease 12/21/23 documented as of this encounter
--- OUTSIDE RECORDS SUMMARY | 2025-07-24 10:57 | XMS_ITS | Encounter Summary ---
Author Organization [place] [address] Care Team Providers Care Elephant Keeper Name Role Phone Rosalino Pichardo DO Primary Care Provider [phone] Jose Hinds MD Unavailable Marlo Davison MD Unavailable Encounter Details Date Type Department Care Team (Late st Contact Info) Description 05/03/2021 Orders Only [facility] [address] [place] [address] Marlo Davison MD [address] [place] [phone] Social History Tobacco Use Types Packs/Day Years Used Date Smoking Tobacco: Former Cigarettes 3 15 1 955 - 1970 Smokeless Tobacco: Never Alcohol Use Standard Drinks/Week Comments Yes 1 (1 standard drink = 0.6 oz pur e alcohol) 3 a month PHQ-2 Answer Date Recorded PHQ-2 Score 0 04/12/2020 Sex and Gender Information Value Date Recorded Sex Assigned at Not on file Legal Sex Male 6:08 AM EDT Gender Identity Not on file Sexual Orientation Not on file COVID-19 Exposure Response Date Recorded In the last month, have you been in contact with someone who was confirmed or suspected to have Coronavirus / COVID-19? Unable to assess 05/06/2021 3:03 PM EDT documented as of this encounter Functional Status * Is the person deaf or does he/she have serious difficulty hearing? Answer Date of Assessment Author No 04/12/2020 8:43 AM EDT Sharon Merchant MA * Is the person blind or does he/she have serious difficulty seeing even when wearing glasses? Answer Date of Assessment Author No 04/12/2020 8:43 AM EDT Sharon Merchant MA * Does this person have serious difficulty walking or climbing stairs? Answer Date of Assessment Author No 04/12/2020 8:43 AM EDT Sharon Merchant MA * Does this person have difficulty dressing or bathing? Answer Date of Assessment Author No 04/12/2020 8:43 AM EDT Sharon Merchant MA * Because of a physical, mental or emotional condition, does this person have difficulty doing errands alone such as visiting a doctor's office or shopping? Answer Date of Assessment Author No 04/12/2020 8:43 AM Sharon العلي MA documented as of this encounter Mental Status * Because of a physical, mental or emotional condition, does this person have serious difficulty concentrating, remembering or making decisions? Answer Entry Date Author No 04/12/2020 8:43 AM Sharon العلي MA documented in this encounter Plan of Treatment Not on file documented as of this encounter Goals Goal Patient Goal Type Associated Problems Recent Progress Patient-Stated? Author Blood Pressure < 140/90 Blood Pressure 121/66(2024 12:11 PM EDT) No Akilah Loredo RMA Maintain a healthy diet, exercise regularly and maintain an ideal body weight General No Emerald Patterson RMA Stay Tobacco Free Lifestyle Emerald Kowalski RMA documented as of this encounter Procedures Procedure Name Priority Date/Time Associated Diagnosis Comments PACEART REPORT Routine 05/03/2021 8:46 PM EDT documented in this encounter Results * PACEART REPORT (05/03/2021 8:46 PM EDT) 05/03/2021 8:46 PM EDT Narrative [facility] - 05/06/2021 9:19 AM EDT Per carelink- 51 minutes in AT/AF since last session. 1 VT-NS, 5-27-21, 2 sec, HR 203 bpm. Per Epic, patient is taking Xarelto. See attachments for full report and strips. lgy/rma us Marlo Davison MD [facility] CATH ORDERABLES Final Result [facility] [address] [place] [address] documented in this encounter Visit Diagnoses Not on filedocumented in this encounter Additional Health Concerns Assessment Noted Time A fall risk assessment has been complete d for the patient 11/10/2019 10:26 AM EST documented as of this encounter Care Teams Elephant Keeper Relationship Specialty Start Date End Date Rosalino Pichardo DO [address] [place] [address] PCP - General 07/13/09 Jose Hinds MD [address] [place], [place] [phone] Consulting Physician Internal Medicine - Clinical Cardiac Electrophysiology 04/16/17 Marlo Davison MD [address] [place] [address] Internal Medicine-Cardiovascular Disease 12/21/23 documented as of this encounter
--- OUTSIDE RECORDS SUMMARY | 2025-07-24 10:57 | XMS_ITS | Clinical Summary ---
Author Organization [facility] Address [address] [place] [address] Phone Care Team Providers Care Grinder Set Up Operator Internal Name Role Phone Rosalino Pichardo DO Primary Care Provider [phone] Jose Hinds MD Unavailable [phone] Marlo Davison MD Unavailable [phone] Allergies Active Allergy Reactions Criticality Noted Date Comments Atorvastatin Myalgia Low 10/08/2017 Patients requested note be placed in chart that patient cannot take the statin medications. Lisinopril Other (See Comments) Low 04/03/2017 Pt and say that he can't take it and he was taken off of it after he had some problems patient stated, I think I had chest pain with this medication . Here in the hospital, he took lisinopril without realizing it for 3 days without any problems but does not want to go home on it. Harris Moscoso MD 04/03/2017 10:48 AM Medications esomeprazole (NEXIUM) 20 mg Oral Capsule, Delayed Release(E.C.) Take 20 mg by mouth as needed. Reported on 03/31/2017 Active Cholecalciferol, Vitamin D3, 125 mcg (5,000 unit) Oral Tablet Take 5,000 Units by mouth daily. Active FA/MV,CA,IRON,IA N/LYCOPENE/LUT (MULTIVITAL ORAL) Take 1 Tab by mouth daily. Active GLUCOSAMINE/MONIQUE DROITIN SULF A (GLUCOSAMINE-CHO NDROITIN ORAL) Take 1 Tab by mouth daily. Active PSYLLIUM HUSK (METAMUCIL ORAL) Take by mouth daily. Active acetaminophen (TYLENOL) 500 mg Oral Tablet Take 1,000 mg by mouth 4 times daily as needed for Pain. Active isosorbide mononitrate (IMDUR) 30 mg Oral Tablet Sustained Release 24 hr Take 1 Tablet by mouth daily. 30 Tablet 2 3 Active Additional Information Patient not taking.Reason: Pt electing to not take the medication, Reported on 06/22/2025 nitroGLYCERIN (NITROSTAT) 0.4 mg SL Tablet, Sublingual Place 1 Tablet under the tongue every 5 minutes as needed for Chest pain. 25 Tablet 6 4 Active atorvastatin (LIPITOR) 40 mg Oral Tablet Take 40 mg by mouth daily. 4 Active carvediloL (COREG) 6.25 mg Oral Tablet Take 6.25 mg by mouth 2 times daily. 4 Active hydrocortisone 2.5 % Top CreamIndications :Eczema, unspecified type Apply topically 2 times daily. 28 g 1 4 Active clopidogreL (PLAVIX) 75 mg Oral Tablet TAKE 1 TABLET BY MOUTH DAILY 90 Tablet 3 4 Active XARELTO 20 mg Oral TabletIndication s:Atrial fibrillation, unspecified type (HCC) TAKE 1 TABLET BY MOUTH DAILY 90 Tablet 3 5 Active amLODIPine (NORVASC) 5 mg Oral Tablet Take 5 mg by mouth daily. 5 Active atorvastatin (LIPITOR) 80 mg Oral Tablet Take 80 mg by mouth daily. 5 Active carvediloL (COREG) 12.5 mg Oral Tablet Take 12.5 mg by mouth 2 times daily. 5 Active isosorbide mononitrate (IMDUR) 120 mg Oral Tablet Sustained Release 24 hr Take 120 mg by mouth daily. 5 Active HYDROcodone-acet aminophen (NORCO) 10-325 mg Oral TabletIndication s:Lumbosacral spondylosis without myelopathy Take 1 Tablet by mouth every 8 hours as needed for Chronic Pain (G89.29). 30 Tablet 5 Active olmesartan-hydro chlorothiazide (BENICAR HCT) 40-25 mg Oral TabletIndication s:Essential hypertension TAKE 1 TABLET BY MOUTH DAILY 90 Tablet 2 5 Active terbinafine HCL (LAMISIL) 250 mg Oral TabletIndication s:OM (onychomycosis) Take 1 Tablet by mouth daily. 90 Tablet 5 Active Active Problems Patient Care Coordination No te Formatting of this note migh t be different from the original. Utilization audit completed by Erika Beltre RN on 01/22/2024. [facility] [place] - Vaibhav Martinez MD Interventional Pain Protocol: Rakesh report completed (EVERY 3 MONTHS) ( ) Pharmacy: [facility] [address] [phone] [employer] - [phone] [facility] additional info (Transportation, WC, Compound, No Show, PPW) Problem Noted Date Diagnosed Date Cardiomyopathy 02/18/2024 Chronic combined systolic (c ongestive) and diastolic (congestive) heart failure 02/18/2024 Overview (02/18/2024): Documented on 02/04/2022 by ROSALINO PICHARDO Dizziness 02/18/2024 Hx of chronic congestive heart failure 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 02/18/2024 Left main coronary artery disease 02/18/2024 Presence of biventricular AICD 02/18/2024 Atrial fibrillation 10/08/2023 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 Presence of drug coated sten t in left circumflex coronary artery 12/23/2017 AF (paroxysmal atrial fibrillation) 12/23/2017 Posterior subcapsular polar senile cataract of r ight eye 09/17/2017 Overview (09/17/2017): Added automatically from request for surgery [id number] Combined systolic and diastolic congestive heart failure 09/02/2017 Assessment & Plan (01/05/2025 9:09 AM EST): F/u per cardio NSTEMI (non-ST elevated myocardial infarction) 1 Pacemaker-dependent due to n ative cardiac rhythm insufficient to support life 04/02/2017 Hiatal hernia with GERD and esophagitis 04/02/20 17 History of esophageal dilatation 04/02/2017 History of esophageal stricture 04/02/2017 Complete heart block 04/01/2017 Overview (07/30/2017): S/P Medtronic dual chamber pacemaker implant 04/02/2017 (Dr. Hinds) Assessment & Plan (01/05/2025 9:09 AM EST): F/u per cardio Vitamin D deficiency 09/28/2012 Hypercholesteremia Essential hypertension Assessment & Plan (05/26/2025 9:57 AM EDT): Orders: LIPID SCREEN; Future HEPATIC FUNCTION PANEL; Future BASIC METABOLIC PANEL; Future Hearing aid worn Overview (01/08/2010): Worn in both ears Pacemaker Overview (04/03/2017): S/P dual chamber pacemaker, Medtronic by Dr. Hinds on 04/02/17 Resolved Problems Problem Noted Date Diagnosed Date Resolved Date Chest pain on breathing 09/01/2017 11/0 04/2017 Overview (09/02/2017): Added automatically from request for surgery [id number] Chest pain 09/01/2017 09/07/2017 Overview (09/05/2017): Added automatically from request for surgery [id number] Chest pain 04/02/2017 04/06/2017 Encounters Date Type Department Care Team Description 06/23/2025 12:30 PM EDT Office Visit [facility] [address] [place] [phone] Hunter Cali MD Sensorineural hearing loss (SNHL), bilateral (Primary Dx); Otitis externa, fungal, right ear; Abnormal auditory perception of both ears 05/26/2025 9:30 AM EDT Office Visit [facility] [address] [place] [address] Rosalino Pichardo, OM (onychomycosis) (Primary Dx); Paronychia of great toe of right foot; Essential hypertension; Screening PSA (prostate specific antigen); Chronic left shoulder pain; Bilateral hearing loss, unspecified hearing loss type 05/26/2025 Results Follow-Up [facility] [address] [place] [address] Rosalino Pichardo, LIPID SCREEN, HEPATIC FUNCTION PANEL, BASIC METABOLIC PANEL, PROSTATE SPECIFIC ANTIGEN (SCREENING) 05/24/2025 Refill [facility] [address] [id number] Marlo Davison MD Medication Refill from Last 3 Months Immunizations Immunization Administration Dates Next Due Pfizer SARS-CoV-2 Bivalent B ooster Vaccine 12+ Years (Issa border) 09/26/2022 Pfizer SARS-CoV-2 Vaccine 12 + Yrs (Purple Cap) 10/04/2021,02/20/2021,01/29/2021 Pfizer SARS-CoV-2 Vaccine Tr is-Sucrose 12+ Years (Issa Cap) 02/04/2022 Tdap 07/15/2016 Surgical History Surgery Date Site/Laterality Comments TONSILLECTOMY AND ADENOIDECTOMY UPPER GASTROINTESTINAL ENDOSCOPY 10/07/2016 N/A ESOPHAGOGASTRODUODENOSCOPY with balloon dilation; Surgeon: Hunter Aguirre MD; Location: [facility]; Service: Endoscopy UPPER GASTROINTESTINAL ENDOSCOPY 12/16/2016 N/A ESOPHAGOGASTRODUODENOSCOPY; Surgeon: Hunter Aguirre MD; Location: [facility]; Service: Endoscopy PACEMAKER INSERTION 04/02/2017 Left Medtronic, dual chamber pacemaker by Dr. Hinds CORONARY ANGIOPLASTY 09/02/2017 MARY to OM and left circ CATARACT REMOVAL 03/16/2018 Right CATARACT REMOVAL 03/16/2018 Right Right eye CATARACT EXTRACTION WITH PHACOEMULSIFICATION AND INTRAOCULAR LENS; Surgeon: Mauro Guzman MD; Location: [facility]; Service: Ophthalmology Medical devices from this surgery are in the Medical Devices section. CATARACT EXTRACTION W/ INTRAOCULAR LENS IMPLANT Left IR 2 LEVEL BILATERAL MEDIAL BRANCH BLOCK LUM SAC 12/07/2018 IR 2 LEVEL BILATERAL MEDIAL BRANCH BLOCK LUM SAC 12/07/2018 [facility] IR 2 LEVEL BILATERAL MEDIAL BRANCH BLOCK LUM SAC 01/07/2019 IR 2 LEVEL BILATERAL MEDIAL BRANCH BLOCK LUM SAC 01/07/2019 [facility] Medical History Medical History Date Comments Hearing aid worn Hiatal hernia with GERD and esophagitis 04/02/2017 History of esophageal stricture 04/02/2017 Pneumonia ~2015 Hypercholesteremia HTN (hypertension) Pericarditis ~2016 I have [facility] and now exercise on my own 4 days a week CAD (coronary artery disease) Status post myocardial infarction 09/01/2017 Complete heart block (HCC) 04/01/2017 S/P M edtronic dual chamber pacemaker implant 04/02/2017 (Dr. Hinds) Family History Medical History Relation Name Comments Asthma Father Early Father Diabetes Maternal Grandfather multipl e amputations from it Heart Attack Mother from it Relation Name Status Comments Father Maternal Grandfather Mother Social History Tobacco Use Types Packs/Day Years Used Date Smoking Tobacco: Former Cigarettes 3 15 1 955 - 1970 Passive Smoke Exposure: Past Smokeless Tobacco: Never [...] on file Sexual Orientation Not on file Obstetrics History Last Filed Vital Signs Vital Sign Reading Time Taken Comments Blood Pressure 121/66 06/23/2025 12:11 PM EDT Pulse 60 06/23/2025 12:11 PM EDT Temperature 36.7 C (98.1 F) 06/23/2025 12:11 PM EDT Respiratory Rate 12 07/08/2024 9:47 AM EDT Oxygen Saturation 94% 07/08/2024 9:47 AM EDT Inhaled Oxygen Concentration - - Weight 77.1 kg (170 lb) 06/23/2025 12:11 PM EDT Height 185.4 cm (6' 1 ) 06/23/2025 12:11 PM EDT Body Mass Index 22.43 06/23/2025 12:11 PM EDT Plan of Treatment Health Maintenance Due Date Last Done Comments Pneumococcal Vaccine 50+ (1 of 2 - PCV) 1956 Zoster (1 of 2) 1987 RSV or 60+ (1 - 1-dose 75+ series) 2012 COVID-19 Vaccine ( season) 2025 09/26/2022, 02/04/2022, 10/04/2021, Additional history exists Influenza Vaccine (#1) 2025 7 (Declined), 07/17/2016 (Declined) Wellness Exam Medicare 01/06/2026 01/05/2025 DTaP/TDaP/Td (3 - Td or Tdap) 03/19/2027 03/19/2017, 07/15/2016 Hepatitis B Vaccine Aged Out No longe r eligible based on patient's age to complete this topic Meningococcal B Vaccine Aged Out No l onger eligible based on patient's age to complete this topic Goals Goal Patient Goal Type Associated Problems Recent Progress Patient-Stated? Author Blood Pressure < 140/90 Blood Pressure 121/66(2024 12:11 PM EDT) No Akilah Loredo RMA Maintain a healthy diet, exercise regularly and maintain an ideal body weight General No Emerald Patterson RMA Stay Tobacco Free Lifestyle No Emerald Patterson RMA Medical Devices Implanted Type Area Wood Turning Lathe Operator Device Identifier Shelf Expiration Date Model / Serial / Lot Lead Pacing Implantable Capsurefix Novus 52cm Atrial/Ventric - [id number] Implanted:Qty: 1 on 04/02/2017 by Jose Hinds MD at [facility] Lead MEDTRONIC:PACING SYS 5076-52 / [id number] / Lead Pacing Implantable Capsurefix Novus 58cm Atrial/Ventric - [id number] Implanted:Qty: 1 on 04/02/2017 by Jose Hinds MD at [facility] Lead MEDTRONIC:PACING SYS 5076-58 / [id number] / Pacemaker Advisa Dual Chamber Mri - [id number] Implanted:Qty: 1 on 04/02/2017 by Jose Hinds MD at [facility] Pacemaker MEDTRONIC:PACING SYS A2DR01 / [id number] / Stent Xience Alpine Drug Eluting 3.0mm X 18mm - [id number] Implanted:Qty: 1 on 09/02/2017 by Elizabeth Shore MD at [facility] Explanted:at [facility] (Quantity not on file) [facility]ASC DEV [id number] Stent Xience Alpine Drug Eluting 2.5mm X 15mm - [id number] Implanted:Qty: 1 on 09/02/2017 by Elizabeth Shore MD at [facility] Explanted:at [facility] (Quantity not on file) [facility]:VASC DEV [id number] Lens Intraocular Preloaded 19.0 Diopter - [id number] Implanted:Qty: 1 on 03/16/2018 by Mauro Guzman MD at [facility] Right: Eye [facility]:SURG 07/02/2020 [id number] / [id number] / Procedures Procedure Name Priority Date/Time Associated Diagnosis Comments PROSTATE SPECIFIC ANTIGEN (SCREENING) Routine 05/26/2025 10:07 AM EDT Screening PSA (prostate specific antigen) BASIC METABOLIC PANEL Routine 05/26/2025 10:07 AM EDT Essential hypertension HEPATIC FUNCTION PANEL Routine 05/26/2025 10:07 AM EDT Essential hypertension LIPID SCREEN Routine 05/26/2025 10:07 AM EDT Essential hypertension from Last 3 Months Results * (ABNORMAL) PROSTATE SPECIFIC ANTIGEN (SCREENING) (05/26/2025 10:07 AM EDT) Total Psa 9.12(H) <=4.00 ng/mL 05/26/2025 4:53 PM EDT [facility] Blood VENOUS BLOOD / Unknown Venipuncture / Unknown 05/26/2025 10:07 AM EDT 05/26/2025 10:07 AM EDT Narrative [facility] - 05/26/2025 4:53 PM EDT The Kerrie [...] hyperplasia or inflammatory conditions of the prostate. [facility] CHEMISTRY ORDERABLES Final Resu lt [facility], [facility] [address] [facility] , [address] [place] [id number] * HEPATIC FUNCTION PANEL (05/26/2025 10:07 AM EDT) Total Protein 7.2 6.4 - 8.3 gm/dL 05/26/2025 4:51 PM EDT [facility] Albumin 4.1 3.2 - 4.6 gm/dL 05/26/2025 4:51 PM EDT [facility] Bili Direct <0.2 0.0 - 0.3 mg/dL 05/26/2025 4:51 PM EDT [facility] Bili Total 0.3 0.2 - 1.4 mg/dL 05/26/2025 4:51 PM EDT [facility] AST 21 <=40 U/L 05/26/2025 4:51 PM EDT [facility] ALT 10 <=41 U/L 05/26/2025 4:51 PM EDT [facility] Alk Phos 89 40 - 129 U/L 05/26/2025 4:51 PM EDT [facility] [employer] [facility] Blood VENOUS BLOOD / Unknown Venipuncture / Unknown 05/26/2025 10:07 AM EDT 05/26/2025 10:07 AM EDT us Rosalino Pichardo DO CHEMISTRY ORDERABLES Final Resu lt [facility] [employer] [facility] [address] [facility] , [place] [address] * (ABNORMAL) LIPID SCREEN (05/26/2025 10:07 AM EDT) Pathologist [facility] Cholesterol 131 <200 mg/dL 05/26/2025 4:51 PM EDT [facility] [employer] [facility] Comment: < 200 Desirable 200 - 239 Borderline High >= 240 High Triglyceride 132 <150 mg/dL 05/26/2025 4:51 PM EDT [facility] [employer] [facility] Comment: < 150 Normal 150 - 199 Borderline High 200 - 499 High >= 500 Very High HDL 39(L) >=40 mg/dL 05/26/2025 4:51 PM EDT [facility] [employer] [facility] Comment: > 60 Optimal 40 - 60 Acceptable < 40 Low LDL Calculated 69 <100 mg/dL 05/26/2025 4:51 PM EDT [facility] [employer] Comment: < 100 Optimal 100 - 129 Near or above optimal 130 - 159 Borderline High 160 - 189 High >= 190 Very High The National Institutes of Health (NIH) equation is used for all lipid panels that report calculated LDL (LDL-C). Non-HDL-C Calculated 92 <=129 mg/dL 05/26/2025 4:51 PM EDT [facility] [employer] Comment: <130 Desirable 130-159 Above Desirable 160-189 Borderline High 190-219 High >= 220 Very High Fasting Specimen? Yes None 025 4:51 PM EDT [facility] [employer] [facility] Blood VENOUS BLOOD / Unknown Venipuncture / Unknown 05/26/2025 10:07 AM EDT 05/26/2025 10:07 AM EDT Rosalino Marino DO CHEMISTRY ORDERABLES Final Resu lt [facility] [address] [facility] [facility] , [place] [address] * (ABNORMAL) BASIC METABOLIC PANEL (05/26/2025 10:07 AM EDT) Sodium 139 136 - 145 mmol/L 05/26/2025 4:51 PM EDT [facility] Potassium 4.4 3.5 - 5.0 mmol/L 05/26/2025 4:51 PM EDT [facility] Chloride 102 98 - 107 mmol/L 05/26/2025 4:51 PM EDT [facility] Total CO2 26 22 - 29 mmol/L 05/26/2025 4:51 PM EDT [facility] Anion Gap 11 7 - 16 mmol/L 05/26/2025 4:51 PM EDT [facility] Calcium 9.3 8.8 - 10.4 mg/dL 05/26/2025 4:51 PM EDT [facility] Glucose Lvl 110(H) 70 - 99 mg/dL 05/26/2025 4:51 PM EDT [facility] BUN 30(H) 8 - 23 mg/dL 05/26/2025 4:51 PM EDT [facility] Creatinine 1.45(H) 0.67 - 1.30 mg/dL 05/26/2025 4:51 PM EDT [facility] eGFR (CKD-EPIcr 2020) 47(L) >=60 mL/min/1.7 3 m2 05/26/2025 4:51 PM EDT [facility] Comment:Estimated GFR was ca lculated using the CKD-EPIcr (2020) equation refit without race. The equation is recommended by the National Kidney Foundation - [place] [employer] of Nephrology Task Force. Blood VENOUS BLOOD / Unknown Venipuncture / Unknown 05/26/2025 10:07 AM EDT 05/26/2025 10:07 AM EDT [employer] DO CHEMISTRY ORDERABLES Final Resu lt [facility] [address] [facility] , [place] [address] from Last 3 Months Insurance Member Subscriber Plan / Payer (Ef fective 2018-Present) Name:Hunter Nayak Relation to Subscriber:Self Name:Hunter Nayak Payer ID:[id number] (NAIC) Type:Not on file Address: [place] [phone] Member Subscriber Plan / Payer (Ef fective 2018-Present) Name:Hunter Nayak Relation to Subscriber:Self Name:Hunter Nayak Payer ID:[id number] (NAIC) Type:Not on file Address: [place] [phone] Advance Directives For more information, please contact: [phone] * Full Code (Latest Code Status on File) Date Activated Date Inactivated Comments 09/04/2017 8:23 AM 09/06/2017 5:17 PM * Full Code Date Activated Date Inactivated Comments 04/01/2017 3:19 AM 04/03/2017 3:57 PM * Full Code Date Activated Date Inactivated Comments 04/01/2017 12:23 AM 04/01/2017 3:19 AM Care Teams Grinder Set Up Operator Internal Relationship Specialty Start Date End Date Rosalino Pichardo DO [address] [place], [place] [id number] PCP - General 07/13/09 Jose Hinds MD [address] [place] [address] [place] [address] Consulting Physician Internal Medicine - Clinical Cardiac Electrophysiology 04/16/17 Marlo Davison MD [address] [place] [phone] Internal Medicine-Cardiovascular Disease 12/21/23
--- OUTSIDE RECORDS SUMMARY | 2025-07-24 10:57 | XMS_ITS | Encounter Summary ---
Author Organization [place] [address] Care Team Providers Care Bad Credit Collector Name Role Phone Rosalino Pichardo DO Primary Care Provider [phone] Jose Hidns MD Unavailable Marlo Davison MD Unavailable [phone] Encounter Details Date Type Department Care Team (Late st Contact Info) Description 10/15/2020 Orders Only [facility] [place] [facility] [address] [place] [address] Marlo Davison MD [address] [place] [address] Social History Tobacco Use Types Packs/Day [...] have Coronavirus / COVID-19? Unable to assess 10/18/2020 11:11 AM ES T documented as of this encounter Functional Status * Is the person deaf or does he/she have serious difficulty hearing? Answer Date of Assessment Author No 04/12/2020 8:43 AM EDT Sharon Merchant MA * Is the person blind or does he/she have serious difficulty seeing even when wearing glasses? Answer Date of Assessment Author No 04/12/2020 8:43 AM Sharon العلي MA * Does this person have serious [...] Date/Time Associated Diagnosis Comments PACEART REPORT Routine 10/15/2020 3:19 PM EST documented in this encounter Results * PACEART REPORT (10/15/2020 3:19 PM EST) 10/15/2020 3:19 PM EST Narrative [facility] - 10/15/2020 2:49 PM EST Per carelink- 22 minutes in AT/AF since last session. Per Epic, patient is taking Xarelto. See attachments for full report and strips. lgy/rma us Marlo Davison MD [facility] CATH ORDERABLES Final Result [facility] [address] [place], [place] [id number] documented in this encounter Visit Diagnoses Not on filedocumented in this encounter Additional Health Concerns Assessment Noted Time A fall risk assessment has been complete d for the patient 11/10/2019 10:26 AM EST documented as of this encounter Care Teams Bad Credit Collector Relationship Specialty Start Date End Date Rosalino Pichardo DO [address] [place] [address] PCP - General 07/13/09 Jose Hinds MD [address] [place] [phone] Consulting Physician Internal Medicine - Clinical Cardiac Electrophysiology 04/16/17 Marlo Davison MD [address] [place] [phone] Internal Medicine-Cardiovascular Disease 12/21/23 documented as of this encounter
--- OUTSIDE RECORDS SUMMARY | 2025-07-24 10:57 | XMS_ITS | Encounter Summary ---
Author Organization [place] [address] Care Team Providers Care Base Draw Operator Name Role Phone Rosalino Pichardo DO Primary Care Provider [phone] Jose Hinds MD Unavailable [phone] Marlo Davison MD Unavailable Encounter Details Date Type Department Care Team (Late st Contact Info) Description 01/23/2021 Orders Only [facility] [address] [place] [address] Marlo Davison MD [address] [place] [phone] Social History Tobacco Use Types Packs/Day [...] have Coronavirus / COVID-19? Unable to assess 01/24/2021 11:59 AM EDT documented as of this encounter Functional [...] Date/Time Associated Diagnosis Comments PACEART REPORT Routine 01/23/2021 2:02 PM EDT documented in this encounter Results * PACEART REPORT (01/23/2021 2:02 PM EDT) 01/23/2021 2:02 PM EDT Narrative [facility] - 01/24/2021 8:56 AM EDT Per carelink- 31 minutes in AT/AF since last session. Per Epic, patient is taking Xarelto. See attachments for full report and strips. lgy/rma us Marlo Davison MD [facility] CATH ORDERABLES Final Result [facility] [address] [place] [address] documented in this encounter Visit Diagnoses Not on filedocumented in this encounter Additional Health Concerns Assessment Noted Time A fall risk assessment has been complete d for the patient 11/10/2019 10:26 AM EST documented as of this encounter Care Teams Base Draw Operator Relationship Specialty Start Date End Date Rosalino Pichardo DO [address] [place] [address] PCP - General 07/13/09 Jose Hinds MD [address] [place] [phone] Consulting Physician Internal Medicine - Clinical Cardiac Electrophysiology 04/16/17 Marlo Davison MD [address] [place] [phone] Internal Medicine-Cardiovascular Disease 12/21/23 documented as of this encounter
--- OUTSIDE RECORDS SUMMARY | 2025-07-24 10:57 | XMS_ITS | Encounter Summary ---
Author Organization [place] [address] Care Team Providers Care Steel Manager Name Role Phone Rosalino Pichardo DO Primary Care Provider [phone] Jose Hinds MD Unavailable [phone] Haleigh Amaya RN Unavailable Unavail able Marlo Davison MD Unavailable Encounter Details Date Type Department Care Team (Late st Contact Info) Description 04/02/2017 Orders Only [facility] [address] [facility] [address] [place] [address] Jose Hinds MD [address] [place], [place] [id number] Social History Tobacco Use Types Packs/Day Years Used Date Smoking Tobacco: Former Cigarettes Q uit: 1968 Smokeless Tobacco: Never Alcohol Use Standard Drinks/Week Comments Yes 0 (1 standard drink = 0.6 oz pur e alcohol) rarely Sex and Gender Information Value Date Recorded Sex Assigned at Not on file Legal Sex Male 6:08 AM EDT Gender Identity Not on file Sexual Orientation Not on file documented as of this encounter Plan of Treatment Not on file documented as of this encounter Goals Goal Patient Goal Type Associated Problems Recent Progress Patient-Stated? Author Blood Pressure < 140/90 Blood Pressure 121/66(2024 12:11 PM EDT) No Akilah Loredo RMA Maintain a healthy diet, exercise regularly and maintain an ideal body weight General No Emerald Patterson RMMckenzie Stay Tobacco Free Lifestyle No ScarzainabEmerald RMA documented as of this encounter Procedures Procedure Name Priority Date/Time Associated Diagnosis Comments PACEART REPORT Routine 04/02/2017 6:54 PM EDT documented in this encounter Results * PACEART REPORT (04/02/2017 6:54 PM EDT) 04/02/2017 6:54 PM EDT Narrative [facility] - 04/02/2017 5:45 PM EDT implant report us Jose Hinds MD [facility] CARDIAC CATH ORDERAB LES Final Result [facility] [address] [place] [address] documented in this encounter Visit Diagnoses Not on filedocumented in this encounter Additional Health Concerns Infection Onset Date Last Indicated Resolved Time R/O C-Diff 07/03/2020 07/03/2020 07/03/2020 3:24 PM EDT R/O COVID-19 09/17/2020 09/18/2020 09/20/2020 8:03 PM EST Assessment Noted Time A fall risk assessment has been complete d for the patient 05/29/2016 9:03 AM EDT documented as of this encounter Care Teams Steel Manager Relationship Specialty Start Date End Date Rosalino Pichardo DO [address] [place] [address] PCP - General 07/13/09 Jose Hinds MD [address] [place] [address] Consulting Physician Internal Medicine - Clinical Cardiac Electrophysiology 04/16/17 Haleigh Amaya, RN [facility] 09/07/17 12/30/17 Marlo Davison MD [address] [place] [address] Internal Medicine-Cardiovascular Disease 12/21/23 documented as of this encounter
--- OUTSIDE RECORDS SUMMARY | 2025-07-24 10:57 | XMS_ITS | Encounter Summary ---
Author Organization [place] [address] Care Team Providers Care Core Filer Name Role Phone Rosalino Pichardo DO Primary Care Provider [phone] Jose Hinds MD Unavailable Marlo Davison MD Unavailable Encounter Details Date Type Department Care Team (Late st Contact Info) Description 08/06/2021 Orders Only [facility]P [facility] [address] [place] [address] Marlo Davison MD [address] [place] [phone] Social History Tobacco Use Types Packs/Day Years Used Date Smoking Tobacco: Former Cigarettes 3 15 1 955 - 1970 Smokeless Tobacco: Never Alcohol Use Standard Drinks/Week Comments Yes 1 (1 standard drink = 0.6 oz pur e alcohol) 3 a month PHQ-2 Answer Date Recorded PHQ-2 Total Score 0 06/25/2021 Sex and Gender Information Value Date Recorded Sex Assigned at Not on file Legal Sex Male 6:08 AM EDT Gender Identity Not on file Sexual Orientation Not on file COVID-19 Exposure Response Date Recorded In the last month, have you been in contact with someone who was confirmed or suspected to have Coronavirus / COVID-19? No / Unsure 08/02/2021 7:55 AM EDT documented as of this encounter Functional Status * Is the person deaf or does he/she have serious difficulty hearing? Answer Date of Assessment Author No 06/25/2021 8:05 AM EDT Todd Abdul bam BryantKEEGAN * Is the person blind or does he/she have serious difficulty seeing even when wearing glasses? Answer Date of Assessment Author No 06/25/2021 8:05 AM EDT Todd Abdul bam BryantMICHELA * Does this person have serious difficulty walking or climbing stairs? Answer Date of Assessment Author No 06/25/2021 8:05 AM EDT Todd Abdul bam Bryant RMA * Does this person have difficulty dressing or bathing? Answer Date of Assessment Author No 06/25/2021 8:05 AM EDT Chantell Todd Bryant RMA * Because of a physical, mental or emotional condition, does this person have difficulty doing errands alone such as visiting a doctor's office or shopping? Answer Date of Assessment Author No 06/25/2021 8:05 AM EDT Chantell Todd Bryant KEEGAN documented as of this encounter Mental Status * Because of a physical, mental or emotional condition, does this person have serious difficulty concentrating, remembering or making decisions? Answer Entry Date Author No 06/25/2021 8:05 AM EDT Chantell Todd Bryant KEEGAN documented in this encounter Plan of Treatment [...] Date/Time Associated Diagnosis Comments PACEART REPORT Routine 08/06/2021 2:13 PM EDT documented in this encounter Results * PACEART REPORT (08/06/2021 2:13 PM EDT) 08/06/2021 2:13 PM EDT Narrative [facility] - 08/08/2021 9:58 AM EDT Per carelink- 4 minutes in AT/AF since last session. Per Epic, patient is taking Xarelto. See attachments for full report and strips. lgy/rma us Marlo Davison MD [facility] CARDIAC CATH ORDERABLES Final Result [facility] [address] [place], [place] [id number] documented in this encounter Visit Diagnoses Not on filedocumented in this encounter Additional Health Concerns Assessment Noted Time A fall risk assessment has been complete d for the patient 06/25/2021 8:04 AM EDT documented as of this encounter Care Teams Core Filer Relationship Specialty Start Date End Date Rosalino Pichardo DO [address] [place] [address] PCP - General 07/13/09 Jose Hinds MD [address] [place] [address] Consulting Physician Internal Medicine - Clinical Cardiac Electrophysiology 04/16/17 Marlo Davison MD [address] [place] [address] Internal Medicine-Cardiovascular Disease 12/21/23 documented as of this encounter
--- OUTSIDE RECORDS SUMMARY | 2025-07-24 10:57 | XMS_ITS | Encounter Summary ---
Author Organization [place] [address] Care Team Providers Care Snap Shearer Name Role Phone Rosalino Pichardo DO Primary Care Provider [phone] Jose Hinds MD Unavailable [phone] Marlo Davison MD Unavailable [phone] Encounter Details Date Type Department Care Team (Late st Contact Info) Description 05/26/2025 Results Follow-Up [facility] [address] [place] [id number] Rosalino Pichardo DO [address] [place] [address] LIPID SCREEN, HEPATIC FUNCTION PANEL, BASIC METABOLIC PANEL, PROSTATE SPECIFIC ANTIGEN (SCREENING) Social History Tobacco Use Types Packs/Day Years [...] Carlee Anderson MA documented in this encounter Plan of [...] documented as of this encounter Visit Diagnoses Not on filedocumented in this encounter Additional Health Concerns Assessment Noted Time A fall risk assessment has been complete d for the patient 05/26/2025 9:33 AM EDT documented as of this encounter Care Teams Snap Shearer Relationship Specialty Start Date End Date Rosalino Pichardo DO [facility] [place] [address] PCP - General 07/13/09 Jose Hinds MD [address] [place] [address] [place] [address] Consulting Physician Internal Medicine - Clinical Cardiac Electrophysiology 04/16/17 Marlo Davison MD [address] [place] [address] Internal Medicine-Cardiovascular Disease 12/21/23 documented as of this encounter
--- OUTSIDE RECORDS SUMMARY | 2025-07-24 10:58 | XMS_ITS | Encounter Summary ---
Author Organization [place] [address] Care Team Providers Care Cloth Sponger Name Role Phone Rosalino Pichardo DO Primary Care Provider [phone] Jose Hinds MD Unavailable Marlo Davison MD Unavailable Encounter Details Date Type Department Care Team (Late st Contact Info) Description 06/29/2020 Orders Only [facility] [place] [facility] [address] [place] [address] Marlo Davison MD [address] [place] [address] Social History Tobacco Use Types [...] or suspected to have Coronavirus / COVID-19? Yes 07/02/2020 9:03 AM EDT documented as of this [...] Date/Time Associated Diagnosis Comments PACEART REPORT Routine 06/29/2020 11:19 AM EDT documented in this encounter Results * PACEART REPORT (06/29/2020 11:19 AM EDT) 06/29/2020 11:1 9 AM EDT Narrative [facility] - 07/02/2020 9:13 AM EDT 53 minutes of AF, ATP converted to SR multiple times. Rates of AF <110 and pt on Xarelto. Sensing, threshold, & impedance stable without evidence of malfunction chanel tao RNCSD us Marlo Davison MD [facility] CARDIAC CATH ORDERABLES Final Result [facility] [address] [place] [address] documented in this encounter Visit [...] documented as of this encounter Care Teams Cloth Sponger Relationship Specialty Start Date End Date Rosalino Pichardo DO [address] [place] [address] PCP - General 07/13/09 Jose Hinds MD [address] [place] [address] Consulting Physician Internal Medicine - Clinical Cardiac Electrophysiology 04/16/17 Marlo Davison MD [address] [place] [address] Internal Medicine-Cardiovascular Disease 12/21/23 documented as of this encounter
[2025-07-24 11:07] LABS: Hematocrit 28.1 % (42.0-52.0); Hemoglobin 8.9 g/dL (14.1-18.0); Immature Granulocytes % 0.1 %; Mean Corpuscular HGB Conc 31.7 g/dL (31.8-35.4); Mean Corpuscular Hemoglobin 29.4 pg (27.0-31.2); Mean Corpuscular Volume 92.7 fl (80-94); Nucleated Red Blood Cells % 0 %; Platelet Count 147 K/mm3 (142-424); Red Blood Count 3.03 M/mm3 (4.60-6.20); Red Cell Distribution Width-SD 45.6 fL; White Blood Count 7.0 K/mm3 (4.8-10.8)
--- NOTE | 2025-07-24 11:16 | XR_ITS ---
FINAL REPORT TECHNIQUE: Single view chest CLINICAL HISTORY: SOA and CP FINDINGS: A single view of the chest was obtained. There is a left-sided AICD. The heart is enlarged. Right base opacity may represent atelectasis or pneumonia. There is no pneumothorax. IMPRESSION: Right base opacity may represent atelectasis or pneumonia. Reviewed, Interpreted and Dictated by Belle Thornton MD Transcribed by Zayda Pierson Authenticated and [facility]
--- NOTE | 2025-07-24 11:17 | ED_ITS ---
<Statement entered by Placido Campo MD - 07/24/25 16:58> I consulted the HÉCTOR, and we discussed the complexity of the problems being addressed. I approved the treatment and management plan for this patient's care in the emergency department, thus performing a substantial portion of the medical decision making. Nir Campo MD Discharge Plan Disposition Patient Disposition: Home, Self-Care Prescriptions Prescriptions: No Action clopidogrel 75 mg tablet 75 mg PO DAILY esomeprazole magnesium 20 mg capsule,delayed release(DR/EC) 20 mg PO DAILY glucosamine-chondroitin 900 mg tablet 20 mg PO DAILYP PRN (Reason: Pain) psyllium husk [Metamucil] 0.4 gram capsule 0.4 g PO DAILY go-wlb-XS-Rq-Fy-eefanuh-lutein 0.4-162-18 mg tablet 1 tab PO DAILY olmesartan-hydrochlorothiazide 40-25 mg tablet 40 tab PO DAILY amlodipine 5 mg tablet See Rx Instructions .ROUTE .COMPLEX Qty: 90 3RF Dose Instruction: TAKE 1 TABLET BY MOUTH DAILY Rx Instructions: TAKE 1 TABLET BY MOUTH DAILY nitroglycerin 0.4 mg tablet, sublingual 0.4 mg sublingual Q5-15M PRN (Reason: chest pain) Qty: 30 1RF Rx Instructions: do not exceed 3 doses per episode Xarelto 20 mg tablet 20 mg PO DAILY Qty: 90 3RF atorvastatin 80 mg tablet 40 mg PO HS Qty: 30 5RF carvedilol 12.5 mg tablet 12.5 mg PO BID Qty: 60 5RF Rx Instructions: must administer with a meal/food isosorbide mononitrate 120 mg tablet extended release 24 hr 120 mg PO DAILY Qty: 30 3RF hydrocodone-acetaminophen 10-325 mg Tablet 1 tab PO Q8 PRN (Reason: Pain) Rx Instructions: Pt confirmed he takes 1 tablet 3-4 time per month, still has pills leftover from September Referrals Follow up/Referrals: Alfonso Wilde II, MD [Staff Physician, Gastroenterology] - See instructions Robles Mario MD [Staff Physician, Cardiology] - See instructions Rosalino Pichardo [Primary Care Provider, Medical] - See instructions Activity Restrictions/Add. Instructions Additional Instructions/Restrictions: Please return to the emergency department with any worsening signs or symptoms. Please follow-up with a print shop helper, your PCP, as well as GI doctor in the upcoming days/weeks. You need to follow-up with your PCP and GI doctor in the upcoming days, to recheck your hemoglobin level. Clinical Impressions Clinical Impression: Chest pain, Hemoglobin decreased Instructions Patient Instructions: DI for Chest Pain Print Language Print Language: Syriac Discharge ED Provider: Placido Campo Adult HPI General Chief complaint: Chest Pain Stated complaint: Chest Pain Time Seen by Provider: 07/24/25 10:58 Mode of Arrival: Ambulatory Source of Information: Patient Description of Symptoms (Recalled from ER Triage Doc. by RN): yahir states around 3am he began having substernal chest pressure and he took a total of 4 nitros. last one was around 3am. he has not had a ny chest pain since then. he also reports intermitent dizzy and a few falls recently. deneis any chest pain right now History of Present Illness HPI narrative: 89-year-old male presents the emergency department accompanied by his significant other for a 24 to 48-hour history of chest pressure, patient is a very poor historian, but endorses chest pressure that started last night around 7 PM, he took 2 nitroglycerin which relieved his pain/symptoms. Patient also endorses another episode of chest pressure with some radiation to his left arm, around 3 AM last night, where he took 2 additional nitroglycerin, this did not relieve his pressure, thus he took an additional 2 p.o. nitroglycerin, which did relieve his symptomatology for a total of 6 nitroglycerin. Patient is asymptomatic at the bedside, he states his chest pain at maximal was a 5 out of 10, currently a 0 out of 10. 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 Patient is a non-smoker, denies any alcohol or drug use, other past medical history is consistent with CAD, status post 3-4 stent placement again patient is unsure of his history, HFrEF, biventricular AICD, hyperlipidemia, paroxysmal atrial fibrillation, hypertension, patient is on anticoagulation therapy with Xarelto, GERD. Initial triage vitals are grossly unremarkable. Also of note, patient states he checked his Apple Watch last night around 3 AM, noted his heart rate was 120 or 130 . Please note that above description of symptoms, in this electronic medical record under categorization of recalled from ER triage doctor by RN are reflective of an initial nursing assessment, however, is not reflective of my full history and physical exam that was personally taken and clarified. Consequentially, this preceding description of symptoms, which may include the patient's categorized chief complaint in the EMR, do not reflect my personal clinical impression, and the ultimate description of history of present illness and patient stated complaints should be deferred to this section of the note. Unless stated otherwise or congruent with this section of the note, additional signs, symptoms, or incongruence should be interpreted as inaccurate with my clinical impression. Onset (ago): day(s) Related Data Home Medications ?Medication ?Instructions ?Recorded ?Confirmed antiarthritic combination no.2 900 20 mg PO DAILYP PRN Pain 12/04/23 03/20/25 mg tablet (glucosamine-chondroitin) clopidogrel 75 mg tablet 75 mg PO DAILY 12/04/2303/02 esomeprazole magnesium 20 mg 20 mg PO DAILY 12/04/23 0 03/20/25 capsule,delayed release dnazwiav-jrm-IU 0.4 mg-calcium 162 1 tab PO DAILY 12/2603/20/25 mg-iron 18 ns-nvlwofl-ibojsu tablet olmesartan 40 40 tab PO DAILY 12/04/23 mg-hydrochlorothiazide 25 mg tablet psyllium husk 0.4 gram capsule 0.4 g PO DAILY 12/04/23 03/20/25 (Metamucil) hydrocodone 10 mg-acetaminophen 1 tab PO Q8 PRN Pain 0 01/06/24 03/20/25 325 mg tablet Previous Rx's ?Medication ?Instructions ?Recorded nitroglycerin 0.4 mg sublingual 0.4 mg sublingual Q5-1 5M PRN chest 01/13/24 tablet pain #30 tabs amlodipine 5 mg tablet See Rx Instructions .Route 1 11/19/23 .COMPLEX #90 tabs rivaroxaban 20 mg tablet (Xarelto) 20 mg PO DAILY #90 tabs 11/11/24 atorvastatin 80 mg tablet 40 mg (1/2 x 80 mg) PO HS #3 0 tabs 12/21/24 carvedilol 12.5 mg tablet 12.5 mg PO BID #60 tabs 02/01 06/26 isosorbide mononitrate 120 mg 120 mg PO DAILY #30 tabs 03/21/25 tablet,extended release 24 hr Allergies Allergy/AdvReac Type Severity Reaction Status Date / Time No Known Allergies Allergy Verified 03/20/25 14:20 [facility] Disclaimer: The information contained in this section may have been updated after the patient was seen, as this information can be updated by other users. 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, <= 40%) Hx of chronic congestive heart failure HFrEF (heart failure with reduced ejection fraction) Coronary artery disease History of left heart catheterization (LHC) Congestive heart failure Atrial fibrillation History of pacemaker Hypertension Hyperlipidemia Surgical History Presence of biventricular AICD H/O heart artery stent Family History Other No significant family history Social History Smoking Status: Never smoker alcohol intake: never current occupational status: retired Travel in the last 8 weeks?: Inside the [place] Have you lived/traveled outside US in past 30 days?: No Contact w/someone who lives/traveled outside US past 30 days?: No Exposure to someone with infectious disease in past 14 days?: No Do you have a fever (greater than 100.4 F or 38 C)?: No Have you tested positive for COVID-19?: No Exposed to someone with COVID-19 in past 14 days?: No Do you have a sore throat?: No Do you have a cough?: No Do you have any weakness?: No Do you have any diarrhea?: No Are you experiencing any unusual bleeding?: No Do you have any muscle aches/pain?: No Do you have any abdominal pain?: No Are you experiencing loss of taste or smell?: No Other Medical History Have you received the Flu Vaccine for this season: No Have you received the Pneumonia Vaccine: Yes ROS Obtained: Yes All systems reviewed & no additional complaints except as documented Physical Exam General General appearance: alert and in no apparent distress Head Head exam: atraumatic and normocephalic Eye Eye exam: Present PERRL and EOMI ENT ENT exam: Present mucous membranes moist and other (Presbycusis noted) Neck Neck exam: Present normal inspection Chest Chest inspection: Present normal inspection and symmetric chest wall rise Respiratory Respiratory exam: Present normal lung sounds bilaterally; Absent respiratory distress Cardiovascular Cardiovascular exam: Present regular rate and normal rhythm Abdominal Exam Abdominal exam: Present soft; Absent tenderness, guarding or rebound Extremities Exam Extremities exam: Present normal inspection Neurological Exam Neurological exam: Present alert and other (Some confusion about specific date and time, GCS 14, unsure of chronicity.); Absent oriented X3 Psychiatric Psychiatric exam: Present normal affect Skin Skin exam: Present warm and dry Medical Decision Making Medical Records Medical records reviewed: Yes I reviewed the patient's medical records. Screening: Per USPSTF and CDC recommendations, given the prevalence of disease in our region, it is our hospital?s policy to screen for HIV and viral Hepatitis for all patients aged 18 and over and those with ongoing risk factors. Rakesh Inquiry Pt receiving controlled substance: No Rakesh was queried for this patient: No Vital Signs: 07/24/25 10:55 07/24/25 12:36 Temperature 98.7 F 97.9 F Temperature Source Oral Oral Pulse Rate 60 Pulse Rate [Right Radial] 62 Respiratory Rate 16 18 Blood Pressure 143/73 H Blood Pressure [Right Arm] 166/88 H Blood Pressure Mean [Right Arm] 114 Blood Pressure Source Automatic Cuff Blood Pressure Source [Right Arm] Automatic Cuff Blood Pressure Position Sitting Blood Pressure Position [Right Arm] Supine 02 Sat by Pulse Oximetry 96 Oxygen Delivery Method Room Air Lab Data Lab results reviewed: Yes I reviewed the patient's lab results. Lab Results 07/24/25 10:54: WBC 7.0, RBC 3.03 L, Hgb 8.9 L, Hct 28.1 L, MCV 92.7, MCH 29.4, MCHC 31.7 L, RDW 13.3, Plt Count 147, MPV 9.9, Neut % (Auto) 58.0, Lymph % (Auto) 28.9, [place] % (Auto) 9.6 H, Eos % (Auto) 2.7, Baso % (Auto) 0.7, Neut # (Auto) 4.0, Lymph # (Auto) 2.0, [place] # (Auto) 0.7, Eos # (Auto) 0.2, Baso # (Auto) 0.1, PT 15.0 H, INR 1.38 H, Sodium 143, Potassium 4.6, Chloride 103, Carbon Dioxide 29, Anion Gap 15.6 H, BUN 38 H, Creatinine 1.60 H, Estimated Creat Clear 34, Estimated GFR 41 L, Est GFR ( Amer) 50 L, Glucose 103 H, Calcium 9.5, Total Bilirubin 0.4, AST 27, ALT 12, Alkaline Phosphatase 76, Troponin I 0.02, NT-Pro-B Natriuret Pep 1270 H, Total Protein 7.9, Albumin 4.6, Globulin 3.3 H, Albumin/Globulin Ratio 1.4, Lipase 114, HCV Ab DAVID w/Rflx PCR Qn Negative, HIV Ag/Ab Combo Qual Negative 07/24/25 10:54 07/24/25 10:54 Orders (Tests/Meds): ORDERS Category Date Time Status XR chest portable Stat Exams 07/24/25 11:16 Completed CMP [Comprehensive Metabolic Panel] Stat Lab 07/24/25 10:54 Completed Complete Blood Count Auto Diff Stat Lab 07/24/25 10:54 Completed HIV Combo Stat Lab 07/24/25 10:54 Completed Hepatitis C Ab Qual. W/ RFX Stat Lab 07/24/25 10:54 Completed Lipase Stat Lab 07/24/25 10:54 Completed NT Pro Brain Natriuretic Pep. Stat Lab 07/24/25 10:54 Completed PT INR [Prothrombin Time INR] Stat Lab 07/24/25 10:54 Completed Troponin I Stat Lab 07/24/25 10:54 Completed Medical Decision Narrative: 89-year-old male presents the emergency department with chest pain that occurred last night, see HPI for detail past medical history, differential diagnose include but not limited to, ACS, cardiac arrhythmia, electrolyte disturbance, pneumonia, anxiety reaction, panic attack, among others. I discussed this patient case with the attending physician Dr. Campo he saw and examined the patient as well. Will obtain basic laboratory studies, EKG, lipase level, proBNP, troponin, PT/INR, CXR, UA, will interrogate the patient's pacemaker at the bedside per nursing staff. CBC is notable for erythrocyte pi?a 3.03, hemoglobin/hematocrit is decreased at 8.9/28.1, which is somewhat out of his baseline. PT is elevated at 15, INR is 1.38. CMP is notable for elevated BUN at 38, creatinine elevation 1.6. Troponin is 0.02 Lipase within normal limits Pacemaker was interrogated per nursing staff, and device rep will be over to see the patient in the emergency department to further interrogate the patient's pacemaker. proBNP is mildly elevated at 1270. I reviewed and independently turbid the patient's chest x-ray along with the attending physician, no acute cardiopulmonary process. I reviewed the patient's chest x-ray along with corresponding radiologic report, right lower lung opacity, may represent atelectasis/pneumonia, patient's chest pain was actually left-sided substernal with radiation to the left arm, most likely thought to be atelectasis in the clinical context. I discussed this patient's case with the device rep, pacemaker was interrogated by device rep, no abnormalities. I discussed all results with the patient and family the bedside patient and family at the bedside, patient is currently asymptomatic, chest pain-free, no lightheadedness no dizziness, patient adamantly denies any abdominal pain melena hematochezia hematemesis hematuria no hemoptysis, patient states that he has had previous hematuria, but had this checked around 6 months ago, found to have no no other issues. Patient again would like to be discharged home to self-care, offered Hemoccult further workup for anemia, currently asymptomatic anemia, patient denied at this time would like to pursue outpatient evaluation for this. Strict ED return precautions given. Patient family voiced understanding. Heart score is 3. Critical Care Critical Care Time Critical Care Time: No
[2025-07-24 11:19] LABS: Albumin Level 4.6 g/dl (3.5-5.0); Chloride 103 mmol/L (98-107); Potassium 4.6 mmoL/L (3.5-5.1); Sodium 143 mmol/L (136-145)
[2025-07-24 11:21] LABS: Blood Urea Nitrogen 38 mg/dl (9-20); Creatinine Clearance Estimated 34 mL/min (50-200); Creatinine,Serum 1.60 mg/dl (0.66-1.25); Estimated Glomerular Filt Rate 41 ml/min (>60); GFR (African American) 50 ML/MIN (>60); INR 1.38 (0.9-1.1); Prothrombin Time 15.0 seconds (10.1-12.5)
[2025-07-24 11:22] LABS: Alanine Aminotransferase 12 U/L (12-78); Albumin/Globulin Ratio 1.4 (1.1-1.8); Alkaline Phosphatase 76 U/L (38-126); Anion Gap 15.6 mEq/L (5-15); Aspartate Amino Transferase 27 U/L (17-59); Bilirubin,Total 0.4 mg/dl (0.2-1.3); Calcium 9.5 mg/dl (8.4-10.2); Carbon Dioxide 29 mmol/L (22.0-30.0); Globulin 3.3 g/dL (1.3-3.2); Glucose 103 mg/dl (74-100); Total Protein,Serum 7.9 g/dl (6.3-8.2)
[2025-07-24 11:34] LABS: Troponin I 0.02 ng/ml (0.00-0.034)
[2025-07-24 11:44] LABS: Lipase 114 U/L (23-300)
[2025-07-24 11:55] LABS: NT Pro Brain Natriuretic Pep. 1270 pg/mL (0-450)
[2025-07-24 12:36] VITALS: BP 143/73; PULSE 60; RESP 18; TEMP 36.6; O2SAT 95
[2025-07-24 12:44] LABS: Hepatitis C Ab Qual. W/ RFX NEGATIVE (Negative)
== END 2025-07-24 12:37 | disposition home or self-care (01) ==
PROVIDERS: Physician Assistant; Emergency Provider Student in an Organized Health Care Education/Training Program; PCP Family Medicine
DX: R07.9 Chest pain, unspecified (principal); R42 Dizziness and giddiness; I11.0 Hypertensive heart disease with heart failure; I50.20 Unspecified systolic (congestive) heart failure; Z86.79 Personal history of other diseases of the circulatory system; Z95.810 Presence of automatic (implantable) cardiac defibrillator
CPT/HCPCS: 71045; 80053; 83690; 83880; 84484; 85025; 85610; 86803; 87389; 93005; 99285

== ENCOUNTER 2025-08-23 12:03 | Outpatient (CLI) | payer MEDICARE, SELFPAY ==
[2025-08-23 12:37] LABS: Hematocrit 23.2 % (42.0-52.0); Immature Granulocytes % 0.3 %; Mean Corpuscular HGB Conc 29.7 g/dL (31.8-35.4); Mean Corpuscular Hemoglobin 26.3 pg (27.0-31.2); Mean Corpuscular Volume 88.5 fl (80-94); Nucleated Red Blood Cells % 0 %; Platelet Count 152 K/mm3 (142-424); Red Blood Count 2.62 M/mm3 (4.60-6.20); Red Cell Distribution Width-SD 47.1 fL; White Blood Count 6.7 K/mm3 (4.8-10.8)
[2025-08-23 12:47] LABS: Hemoglobin 6.9 g/dL (14.1-18.0)
[2025-08-23 13:19] LABS: Iron 42 ug/dL (49-181)
[2025-08-23 13:28] LABS: Total Iron Binding Capacity 431 ug/dL (261-462)
[2025-08-23 13:55] LABS: Ferritin 9.06 ng/ml (17.9-464)
== END 2025-08-23 23:59 | disposition home or self-care (01) ==
LOC: LAB 12:04
PROVIDERS: PCP Family Medicine; Visit Provider Nurse Practitioner Family
DX: D64.9 Anemia, unspecified (principal)
CPT/HCPCS: 36415; 82728; 83540; 83550; 85025

== ENCOUNTER 2025-08-24 13:49 | Day surgery (SDC) | payer MEDICARE, SELFPAY ==
--- NOTE | 2025-08-23 14:50 | EXP.HP ---
History of Present Illness *Admission Date: 08/24/25 *History of present illness: Mr. Nayak is an 89-year-old gentleman who is here for diagnostic EGD. The patient went to the ED about 4 to 5 weeks ago with chest pain. His cardiac evaluation was unremarkable. He did have a hemoglobin of 8.9 that dropped again down to 6.9 in 4 weeks. His baseline hemoglobin is often 13-14. He has had some increased fatigue the anemia was normocytic and hypochromic. He also is having some dysphagia. He had an EGD about 5 years ago. He reports no melena or hematochezia the examination is deemed medically necessary for diagnostic EGD. The patient has been seen, interviewed and examined prior to the procedure by both myself and the anesthesia provider. [facility] Disclaimer: The information contained in this section may have been updated after the patient was seen, as this information can be updated by other users. 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, <= 40%) Hx of chronic congestive heart failure HFrEF (heart failure with reduced ejection fraction) Coronary artery disease History of left heart catheterization (LHC) Congestive heart failure Atrial fibrillation History of pacemaker Hypertension Hyperlipidemia Surgical History Presence of biventricular AICD H/O heart artery stent Family History Other No significant family history Social History (Updated 08/24/25 @ 15:00 by Pal Land CRNA) Smoking Status: Never smoker alcohol intake: never substance use type: denies use current occupational status: retired Travel in the last 8 weeks?: Inside the [place] caffeine: Yes Have you lived/traveled outside US in past 30 days?: No Contact w/someone who lives/traveled outside US past 30 days?: No Exposure to someone with infectious disease in past 14 days?: No Do you have a fever (greater than 100.4 F or 38 C)?: No Have you tested positive for COVID-19?: No Exposed to someone with COVID-19 in past 14 days?: No Do you have a sore throat?: No Do you have a cough?: No Do you have any weakness?: No Do you have any diarrhea?: No Are you experiencing any unusual bleeding?: No Do you have any muscle aches/pain?: No Do you have any abdominal pain?: No Are you experiencing loss of taste or smell?: No Other Medical History Have you received the Flu Vaccine for this season: No Have you received the Pneumonia Vaccine: Yes Review of Systems Review of Systems Review of systems (narrative): Negative *Cardiovascular Comments: Negative *Gastrointestinal Comments: Negative *Genitourinary Comments: Negative *Musculoskeletal Comments: Negative *Neurologic Comments: Negative Meds Home Medications and Allergies Home Medications ?Medication ?Instructions ?Recorded ?Confirmed ?Type antiarthritic combination no.2 900 20 mg PO DAILYP PRN Pain 12/04/23 08/24/25 History mg tablet (glucosamine-chondroitin) clopidogrel 75 mg tablet 75 mg PO DAILY 12/04/23 08/24/25 History esomeprazole magnesium 20 mg 20 mg PO DAILY 12/04/23 08/24/25 History capsule,delayed release vjrhlgtt-tkj-SI 0.4 mg-calcium 162 1 tab PO DAILY 12/04/23 08/24/25 History mg-iron 18 zk-zollqiw-caautu tablet olmesartan 40 40 tab PO DAILY 12/04/23 08/24/25 History mg-hydrochlorothiazide 25 mg tablet psyllium husk 0.4 gram capsule 0.4 g PO DAILY 12/04/23 08/24/25 History (Metamucil) hydrocodone 10 mg-acetaminophen 1 tab PO Q8 PRN Pain 01/06/24 08/24/25 History 325 mg tablet nitroglycerin 0.4 mg sublingual 0.4 mg sublingual Q5-15M PRN chest 01/13/24 08/24/25 Rx tablet pain #30 tabs amlodipine 5 mg tablet See Rx Instructions .Route 09/19/24 08/24/25 Rx .COMPLEX #90 tabs rivaroxaban 20 mg tablet (Xarelto) 20 mg PO DAILY #90 tabs 11/11/24 08/24/25 Rx atorvastatin 80 mg tablet 40 mg (1/2 x 80 mg) PO HS #30 tabs 12/21/24 08/24/25 Rx isosorbide mononitrate 120 mg 120 mg PO DAILY #90 tabs 07/31/25 08/24/25 Rx tablet,extended release 24 hr carvedilol 12.5 mg tablet 12.5 mg PO BID #60 tabs 08/22/25 08/24/25 Rx coenzyme Q10 75 mg capsule (Ultra 75 mg PO DAILY 08/23/25 08/24/25 History CoQ10) ferrous sulfate 325 mg (65 mg 325 mg PO DAILY #30 tabs 08/23/25 08/24/25 Rx iron) tablet New Prescriptions to Start Prescriptions: Allergies Allergy/AdvReac Type Severity Reaction Status Date / Time No Known Allergies Allergy Verified 08/23/25 13:50 Exam *Routine HEENT Exam Head: Present normocephalic Eye: Present EOMI and PERRL ENT: Present mucous membranes moist *Routine Neck Exam Neck: Present supple *Routine Respiratory Exam Respiratory: Present CTA bilaterally *Routine Cardiovascular Exam Cardiovascular: Present RRR *Routine Abdominal Exam Abdominal: Present soft and normoactive bowel sounds; Absent tenderness *Routine Rectal Exam Rectal:: deferred *Routine Genitalia Exam Genitalia:: deferred *Routine Extremities Exam Extremities: Absent cyanosis, clubbing or edema *Routine Skin Exam Skin: Present warm; Absent rash *Routine Neurological Exam Neurological: Present alert and oriented X3 Assessment and Plan *Assessment and plan (1) Anemia: Status: Acute Qualifiers: Anemia type: other cause Other causes of anemia: other cause, not classified Qualified Code(s): D64.89 - Other specified anemias Category: Medical Code(s): D64.9 - Anemia, unspecified (2) Dysphagia: Status: Acute Category: Medical Code(s): R13.10 - Dysphagia, unspecified Plan A/P: 1. Anemia/acute drop and dysphagia is the preprocedural diagnosis. The patient will be anesthetized/sedated using MAC sedation. The patient has been seen and examined. Cardiac and lung assessment prior to the examination is stable. Proceed with planned diagnostic EGD.
--- NOTE | 2025-08-24 07:03 | [facility].PROCNOTE ---
[facility] Procedure Note Date: 08/24/25 Time: 15:20 Procedure Note:: Upper Endoscopy Procedure Report: Esophagogastroduodenoscopy with cold biopsies and TTS balloon dilation Endoscopost: Alfonso Wilde II, MD Referring Physician: Rosalino Pichardo DO, [address] [place] [address] Date of Procedure: August 24, 2025 Equipment: Olympus GIF-1100 standard upper endoscope Sedation: MAC sedation Indications: Mr. Nayak is an 89-year-old gentleman who is here for diagnostic EGD. The patient went to the ED about 4 to 5 weeks ago with chest pain. His cardiac evaluation was unremarkable. He did have a hemoglobin of 8.9 that dropped again down to 6.9 in 4 weeks. His baseline hemoglobin is often 13-14. He has had some increased fatigue and dyspnea on exertion. The anemia is normocytic and hypochromic. His iron studies showed serum iron 42, iron saturation 9.74% and serum ferritin 9.06 consistent with iron deficiency. He also is having some dysphagia. He had an EGD about 5 years ago secondary to dysphagia and pill esophageal impaction. He reports no melena or hematochezia the examination is deemed medically necessary for diagnostic EGD. Procedure: Prior to the procedure, a history and physical exam was performed, and patient's medications and allergies were reviewed. The risks, benefits and alternatives of the sedation and procedure were discussed with the patient. All questions were answered and informed consent was obtained. The patient was brought to the procedure room. Patient identification and proposed procedure were verified by the physician and the nurse. The patient was placed in a left lateral decubitus position and the scope was passed under direct vision. Throughout the procedure, the patient's blood pressure, pulse, and oxygen saturations were monitored continuously. The upper GI endoscopy was accomplished without difficulty. The patient tolerated the procedure well. Findings: The scope was passed directly into the upper esophagus and advanced to the third portion of the duodenum. The post bulbar duodenum and duodenal bulb were normal with normal mucosa and conniventes. Cold biopsies were taken from the first portion of the duodenum to rule out celiac disease. The scope was withdrawn through a normal duodenal bulb and pylorus into the stomach. There was mild antral gastropathy. There was chronic atrophic gastritis of the body and fundus of the stomach. Within the fundus of the stomach approximately 4 cm from the diaphragmatic hiatus along the greater curvature was a raised 11 to 12 mm lesion with some surface irregularity and central excavation/depression and multiple biopsies were obtained of this. Additional biopsies were taken from the background mucosa of the fundus of the stomach that appeared atrophic and probable gastric intestinal metaplasia. Upon retroflexion there was a 4 cm hiatal hernia. The scope was then withdrawn into the esophagus. There was a distal Schatzki's ring. This was dilated to 60 Indonesian/20 mm with a TTS hydrostatic balloon. There was no evidence of reflux esophagitis or Mccracken's. The remainder of the esophageal mucosa was normal. Impression: 1. Raised 11 to 12 mm gastric lesion (in fundus along greater curvature with central excavation/depression) 2. Chronic atrophic gastritis 3. Medium size 4 cm hiatal hernia 4. Schatzki's ring status post dilation to 20 mm Plan: I will follow-up the biopsies of this gastric lesion and I do have some concern about carcinoid or early gastric adenocarcinoma within the background setting of atrophic gastritis. There was no ulcerations. Additionally, chronic iron deficiency is often seen with chronic atrophic gastritis because HCl/acid is required for iron to be absorbed and its ferric formed. In that regard, I would recommend a parenteral iron infusion because of his iron deficiency. I would like to check B12 levels and antiparietal cell antibodies today.
[2025-08-24 14:01] VITALS: BMI 22.4
[2025-08-24 14:12] VITALS: BP 156/69; PULSE 64; RESP 18; TEMP 36.5; O2SAT 97
--- NOTE | 2025-08-24 15:00 | EXP.ANES.CKL ---
[facility] Disclaimer: The information contained in this section may have been updated after the patient was seen, as this information can be updated by other users. 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, <= 40%) Hx of chronic congestive heart failure HFrEF (heart failure with reduced ejection fraction) Coronary artery disease History of left heart catheterization (LHC) Congestive heart failure Atrial fibrillation History of pacemaker Hypertension Hyperlipidemia Surgical History Presence of biventricular AICD H/O heart artery stent Family History Other No significant family history Social History Smoking Status: Never smoker alcohol intake: never substance use type: denies use current occupational status: retired Travel in the last 8 weeks?: Inside the [place] caffeine: Yes [facility] Anesthesia Checklist Patient Identification Patient Identification: Arm Band and Verbal (Name & ) Structural Data Admitted From: Home Planned Operative Procedure/s: EGD Consent for Planned Operative Procedure(s) Verified: Yes Verified Documents: Surgical Consent NPO Status Verified Time NPO: 00:00 Chart Verification Results Verified: ECG Additional verifications Anesthesia Reactions: No Hx Blood Transfusions: No Blood Transfusion Reaction: No Airway Assessment Mallampati Score:: Class II C-Spine Mobility Assessed: Yes TMJ Mobility Assessed: Yes Dentition: Dentures-good fit Neurological Assessment Level of Consciousness: Awake, Alert and Appropriate Hx Seizures: No Numbness or tingling in extremities: No Anesthesia Plan Anesthesia Risk discussed: Yes Anesthesia Plan: Verified ASA Class: III Anesthesia Type: MAC
[2025-08-24 15:24] VITALS: BP 109/62; PULSE 60; RESP 18; TEMP 36.1; O2SAT 98
[2025-08-24 15:34] VITALS: BP 113/65; PULSE 60; RESP 18; TEMP 36.1; O2SAT 99
[2025-08-24 15:44] VITALS: BP 124/69; PULSE 60; RESP 18; TEMP 36.1; O2SAT 100
[2025-08-24 15:54] VITALS: BP 133/72; PULSE 60; RESP 18; TEMP 36.1; O2SAT 100
== END 2025-08-24 16:00 | disposition home or self-care (01) ==
PROVIDERS: PCP Family Medicine; Visit Provider Internal Medicine Gastroenterology
PROC: 0DJ08ZZ Inspection of Upper Intestinal Tract, Via Natural or Artificial Opening Endoscopic (ICD-10-PCS; CPT 43239; principal; 2025-08-24 15:00)
DX: C16.9 Malignant neoplasm of stomach, unspecified (principal); K31.A0 Gastric intestinal metaplasia, unspecified; K31.89 Other diseases of stomach and duodenum; K29.50 Unspecified chronic gastritis without bleeding; K44.9 Diaphragmatic hernia without obstruction or gangrene; K22.2 Esophageal obstruction; D50.9 Iron deficiency anemia, unspecified; I11.0 Hypertensive heart disease with heart failure; I50.23 Acute on chronic systolic (congestive) heart failure; E78.5 Hyperlipidemia, unspecified; I48.91 Unspecified atrial fibrillation; I25.10 Atherosclerotic heart disease of native coronary artery without angina pectoris; Z95.9 Presence of cardiac and vascular implant and graft, unspecified; Z79.01 Long term (current) use of anticoagulants
CPT/HCPCS: 43239; 43249; 88305; 88341; 88342; 88360; C1726; J2003; J2704

== ENCOUNTER 2025-09-04 09:42 | Outpatient (CLI) | payer MEDICARE, SELFPAY ==
--- OUTSIDE RECORDS SUMMARY | 2025-09-04 09:46 | XMS_ITS | Encounter Summary ---
Author Organization [place] [address] Care Team Providers Care Manager Strategic Name Role Phone Rosalino Pichardo DO Primary Care Provider [phone] Jose Hinds MD Unavailable [phone] Haleigh Amaya RN Unavailable Unavail able Marlo Davison MD Unavailable Encounter Details Date Type Department Care Team (Late st Contact Info) Description 04/02/2017 Orders Only SEP Arrhythmia Ctr Edg [address] [facility] [address] [place] [address] Jose Hinds MD [address] [place], [place] [id number] Social History Tobacco Use Types Packs/Day Years [...] PM EDT) 04/02/2017 6:54 PM EDT Narrative [facility] - 04/02/2017 5:45 PM EDT implant report us Jose Hinds MD [facility] CARDIAC CATH ORDERAB LES Final Result [facility] [address] [place] [address] documented in this encounter Visit Diagnoses Not on filedocumented in this encounter Additional Health Concerns Infection Onset Date Last Indicated Resolved Time R/O C-Diff 07/03/2020 07/03/2020 07/03/2020 3:24 PM EDT R/O COVID-19 09/17/2020 09/18/2020 09/20/2020 8:03 PM EST Assessment Noted Time A fall risk assessment has been complete d for the patient 05/29/2016 9:03 AM EDT documented as of this encounter Care Teams Manager Strategic Relationship Specialty Start Date End Date Rosalino Pichardo DO [address] [place] [address] PCP - General 07/13/09 Jose Hinds MD [address] [place] [address] Consulting Physician Internal Medicine - Clinical Cardiac Electrophysiology 04/16/17 Haleigh Amaya, RN Health Advocate 09/07/17 12/30/17 Marlo Davison MD [address] [place] [address] Internal Medicine-Cardiovascular Disease 12/21/23 documented as of this encounter
--- OUTSIDE RECORDS SUMMARY | 2025-09-04 09:46 | XMS_ITS | Encounter Summary ---
Author Organization [place] [address] Care Team Providers Care Silver Lap Machine Tender Name Role Phone Rosalino Pichardo DO Primary Care Provider [phone] Jose Hinds MD Unavailable Marlo Davison MD Unavailable [phone] Encounter Details Date Type Department Care Team (Late st Contact Info) Description 06/29/2020 Orders Only SEP H&V CV [place] [facility] [address] [place] [address] Marlo Davison MD [address] [place] [address] Social History Tobacco Use Types [...] EDT) 06/29/2020 11:1 9 AM EDT Narrative [facility] - 07/02/2020 9:13 AM EDT 53 minutes of AF, ATP converted to SR multiple times. Rates of AF <110 and pt on Xarelto. Sensing, threshold, & impedance stable without evidence of malfunction chanel tao RNCSD us Marlo Davison MD [facility] CARDIAC CATH ORDERABLES Final Result [facility] [address] [place] [address] documented in this encounter Visit [...] documented as of this encounter Care Teams Silver Lap Machine Tender Relationship Specialty Start Date End Date Rosalino Pichardo DO [address] [place] [address] PCP - General 07/13/09 Jose Hinds MD [address] [place] [address] Consulting Physician Internal Medicine - Clinical Cardiac Electrophysiology 04/16/17 Marlo Davison MD [address] [place] [address] Internal Medicine-Cardiovascular Disease 12/21/23 documented as of this encounter
--- OUTSIDE RECORDS SUMMARY | 2025-09-04 09:46 | XMS_ITS | Encounter Summary ---
Author Organization [place] [address] Care Team Providers Care Engineering Document Control Clerk Name Role Phone Rosalino Pichardo DO Primary Care Provider [phone] Jose Hinds MD Unavailable [phone] Marlo Davison MD Unavailable [phone] Reason for Referral * Interventional Radiology (Routine) - Closed Specialty Diagnoses / Procedures Referred By Contac t Referred To Contact Radiology Diagnoses Lumbosacral spondylosis without myelopathy Procedures IR 2 LEVEL BILATERAL MEDIAL BRANCH BLOCK LUM SAC Vaibhav Martinez MD [address] [place] [address] Phone: tel: fax: Referral ID Status Reason Start Date Expiration Date Visits Re quested Visits Authorized [id number] Closed 12/08/2018 12/08/2019 1 1 Encounter Details Date Type Department Care Team (Late st Contact Info) Description 12/08/2018 E-Visit [facility] [place] [address] [place] [address] Vaibhav Martinez MD [address] [place] [address] Repeat Procedure Social History Tobacco [...] documented as of this encounter Care Teams Engineering Document Control Clerk Relationship Specialty Start Date End Date Rosalino Pichardo DO [address] [place] [address] PCP - General 07/13/09 Jose Hinds MD [address] [place] [address] Consulting Physician Internal Medicine - Clinical Cardiac Electrophysiology 04/16/17 Marlo Davison MD [address] [place] [phone] Internal Medicine-Cardiovascular Disease 12/21/23 documented as of this encounter
--- OUTSIDE RECORDS SUMMARY | 2025-09-04 09:46 | XMS_ITS | Clinical Summary ---
Author Organization [facility] Address [address] [place] [address] Phone Care Team Providers Care Tie Layer Name Role Phone Rosalino Pichardo DO Primary Care Provider [phone] Jose Hinds MD Unavailable [phone] Marlo Davison MD Unavailable [phone] Allergies Active Allergy Reactions Criticality Noted Date [...] Take 5,000 Units by mouth daily. Active FA/MV,CA,IRON,[place] N/LYCOPENE/LUT (MULTIVITAL ORAL) Take 1 Tab by [...] completed by Erika Beltre RN on 01/22/2024. [facility] [place] - Vaibhav Martinez MD Interventional Pain Protocol: Rakesh report completed (EVERY 3 MONTHS) ( ) [facility] [phone] [phone] [facility] - [phone] [facility] additional info (Transportation, WC, Compound, [...] (08/01/2020): Added automatically from request for surgery [id number] Lumbar degenerative disc disease 02/02/2020 Lumbosacral spondylosis [...] (09/17/2017): Added automatically from request for surgery [id number] Combined systolic and diastolic congestive heart failure [...] (09/02/2017): Added automatically from request for surgery [id number] Chest pain 09/01/2017 09/07/2017 Overview (09/05/2017): Added automatically from request for surgery [id number] Chest pain 04/02/2017 04/06/2017 Encounters Date Type Department Care Team Description 06/23/2025 12:30 PM EDT Office Visit [facility]NT [facility] [place] [address] [place] [address] Hunter Cali MD Sensorineural hearing loss (SNHL), bilateral (Primary Dx); Otitis externa, fungal, right ear; Abnormal auditory perception of both ears from Last 3 Months Immunizations Immunization Administration [...] balloon dilation; Surgeon: Hunter Aguirre MD; Location: [facility]; Service: Endoscopy UPPER GASTROINTESTINAL ENDOSCOPY 12/16/2016 N/A ESOPHAGOGASTRODUODENOSCOPY; Surgeon: Hunter Aguirre MD; Location: [facility]; Service: Endoscopy PACEMAKER INSERTION 04/02/2017 Left Medtronic, dual chamber pacemaker by Dr. Hinds CORONARY ANGIOPLASTY 09/02/2017 MARY to OM and left circ CATARACT REMOVAL 03/16/2018 Right CATARACT REMOVAL 03/16/2018 Right Right eye CATARACT EXTRACTION WITH PHACOEMULSIFICATION AND INTRAOCULAR LENS; Surgeon: Mauro Guzman MD; Location: [facility]; Service: Ophthalmology Medical devices from this [...] 04/02/2017 Pneumonia ~2015 Hypercholesteremia HTN (hypertension) Pericarditis ~2017 I have gone [facility] and now exercise on [...] on file Sexual Orientation Not on file Last Filed Vital Signs Vital Sign Reading [...] 1-dose 75+ series) 2012 COVID-19 Vaccine ( - season) 2025 09/26/2022, 02/04/2022, 10/04/2021, Additional history [...] Patterson RMA Medical Devices Implanted Type Area Petroleum Engineering Teacher Device Identifier Shelf Expiration Date Model / Serial / Lot Lead Pacing Implantable Capsurefix Novus 52cm Atrial/Ventric - [id number] Implanted:Qty: 1 on 04/02/2017 by Jose Hinds MD at [facility] Lead MEDTRONIC:PACING SYS 5076-52 / [id number] / Lead Pacing Implantable Capsurefix Novus 58cm Atrial/Ventric - [id number] Implanted:Qty: 1 on 04/02/2017 by Jose Hinds MD at [facility] Lead MED[employer]:PACING SYS 5076-58 / [id number] / Pacemaker Advisa Dual Chamber Mri - [id number] Implanted:Qty: 1 on 04/02/2017 by Jose Hinds MD at [facility] Pacemaker MEDTR[employer]:PACING SYS [id number] / [id number] / Stent Xience Alpine Drug Eluting 3.0mm X 18mm - [id number] Implanted:Qty: 1 on 09/02/2017 by Elizabeth Shore MD at [facility] Explanted:at [facility] (Quantity not on file) [facility]:VASC DEV [id number] / [id number] Stent Xience Alpine Drug Eluting 2.5mm X 15mm - [id number] Implanted:Qty: 1 on 09/02/2017 by Elizabeth Shore MD at [facility] Explanted:at [facility] (Quantity not on file) [facility]:VASC DEV [id number] Lens Intraocular Preloaded 19.0 Diopter - [id number] Implanted:Qty: 1 on 03/16/2018 by Mauro Guzman MD at [facility] Right: Eye [facility]:SURG 07/02/2020 [id number] 0 / [id number] / Insurance MEDICARE PPO MR MEDICARE PPO MR [facility] MEDICARE PPO MR Advance Directives For more information, please contact: [phone] * Full Code (Latest Code Status on File) Date Activated Date Inactivated Comments 09/04/2017 8:23 AM 09/06/2017 5:17 PM * Full Code Date Activated Date Inactivated Comments 04/01/2017 3:19 AM 04/03/2017 3:57 PM * Full Code Date Activated Date Inactivated Comments 04/01/2017 12:23 AM 04/01/2017 3:19 AM Care Teams Tie Layer Relationship Specialty Start Date End Date Rosalino Pichardo DO [address] [place] [address] PCP - General 07/13/09 Jose Hinds MD [address] [place] [address] [place] [address] Consulting Physician Internal Medicine - Clinical Cardiac Electrophysiology 04/16/17 Marlo Davison MD [address] [place] [phone] Internal Medicine-Cardiovascular Disease 12/21/23
--- OUTSIDE RECORDS SUMMARY | 2025-09-04 09:46 | XMS_ITS | Encounter Summary ---
Author Organization [place] [address] Care Team Providers Care Steel Manager Name Role Phone Rosalino Pichardo DO Primary Care Provider [phone] Jose Hinds MD Unavailable [phone] Marlo Davison MD Unavailable Encounter Details Date Type Department Care Team (Late st Contact Info) Description 08/06/2021 Orders Only SEP H&V [facility] [place] [facility] [address] [place] [address] Marlo Davison MD [address] [place] [address] Social History Tobacco Use Types Packs/Day [...] PM EDT) 08/06/2021 2:13 PM EDT Narrative [facility] - 08/08/2021 9:58 AM EDT Per carelink- 4 minutes in AT/AF since last session. Per Epic, patient is taking Xarelto. See attachments for full report and strips. lgy/rma us Marlo Davison MD [facility] CARDIAC CATH ORDERABLES Final Result [facility] [address] [place], [place] [id number] documented in this encounter Visit Diagnoses Not on filedocumented in this encounter Additional Health Concerns Assessment Noted Time A fall risk assessment has been complete d for the patient 06/25/2021 8:04 AM EDT documented as of this encounter Care Teams Steel Manager Relationship Specialty Start Date End Date Rosalino Pichardo DO [address] [place] [address] PCP - General 07/13/09 Jose Hinds MD [address] [place] [address] Consulting Physician Internal Medicine - Clinical Cardiac Electrophysiology 04/16/17 Marlo Davison MD [address] [place] [address] Internal Medicine-Cardiovascular Disease 12/21/23 documented as of this encounter
--- OUTSIDE RECORDS SUMMARY | 2025-09-04 09:46 | XMS_ITS | Encounter Summary ---
Author Organization [place] [address] Care Team Providers Care Fugitive Detective Name Role Phone Rosalino Pichardo DO Primary Care Provider [phone] Jose Hinds MD Unavailable [phone] Marlo Davison MD Unavailable Encounter Details Date Type Department Care Team (Late st Contact Info) Description 01/23/2021 Orders Only SEP H&V CV [place] [facility] [address] [place] [address] Marlo Davison MD [address] [place] [address] Social History Tobacco Use Types Packs/Day [...] PM EDT) 01/23/2021 2:02 PM EDT Narrative [facility] - 01/24/2021 8:56 AM EDT Per carelink- 31 minutes in AT/AF since last session. Per Epic, patient is taking Xarelto. See attachments for full report and strips. lgy/rma us Marlo Davison MD [facility] CARDIAC CATH ORDERABLES Final Result [facility] 1 [place] [address] documented in this encounter Visit Diagnoses Not on filedocumented in this encounter Additional Health Concerns Assessment Noted Time A fall risk assessment has been complete d for the patient 11/10/2019 10:26 AM EST documented as of this encounter Care Teams Fugitive Detective Relationship Specialty Start Date End Date Rosalino Pichardo DO [address] [place] [address] PCP - General 07/13/09 Jose Hinds MD [address] [place] [address] Consulting Physician Internal Medicine - Clinical Cardiac Electrophysiology 04/16/17 Marlo Davison MD [address] [place] [address] Internal Medicine-Cardiovascular Disease 12/21/23 documented as of this encounter
--- OUTSIDE RECORDS SUMMARY | 2025-09-04 09:46 | XMS_ITS | Encounter Summary ---
Author Organization [place] [address] Care Team Providers Care Night Manager Name Role Phone Rosalino Pichardo DO Primary Care Provider [phone] Jose Hinds MD Unavailable [phone] Marlo Davison MD Unavailable Encounter Details Date Type Department Care Team (Late st Contact Info) Description 05/03/2021 Orders Only SEP H&V [facility] [place] [facility] [address] [place] [address] Marlo Davison MD [address] [place] [address] Social History Tobacco Use Types Packs/Day [...] PM EDT) 05/03/2021 8:46 PM EDT Narrative [facility] - 05/06/2021 9:19 AM EDT Per carelink- 51 minutes in AT/AF since last session. 1 VT-NS, 5-27-21, 2 sec, HR 203 bpm. Per Epic, patient is taking Xarelto. See attachments for full report and strips. lgy/rma us Marlo Davison MD [facility] CARDIAC CATH ORDERABLES Final Result [facility] [address] [place] [address] documented in this encounter Visit Diagnoses Not on filedocumented in this encounter Additional Health Concerns Assessment Noted Time A fall risk assessment has been complete d for the patient 11/10/2019 10:26 AM EST documented as of this encounter Care Teams Night Manager Relationship Specialty Start Date End Date Rosalino Pichardo DO [address] [place] [address] PCP - General 07/13/09 Jose Hinds MD [address] [place], [place] [phone] Consulting Physician Internal Medicine - Clinical Cardiac Electrophysiology 04/16/17 Marlo Davison MD [address] [place] [address] Internal Medicine-Cardiovascular Disease 12/21/23 documented as of this encounter
--- OUTSIDE RECORDS SUMMARY | 2025-09-04 09:46 | XMS_ITS | Encounter Summary ---
Author Organization [place] [address] Care Team Providers Care Braille Transcriber Name Role Phone Rosalino Pichardo DO Primary Care Provider [phone] Jose Hinds MD Unavailable [phone] Marlo Davison MD Unavailable Encounter Details Date Type Department Care Team (Late st Contact Info) Description 10/15/2020 Orders Only SEP H&V CV [place] [facility] [address] [place] [address] Marlo Davison MD [address] [place] [address] Social History Tobacco Use Types [...] PM EST) 10/15/2020 3:19 PM EST Narrative [facility] - 10/15/2020 2:49 PM EST Per carelink- 22 minutes in AT/AF since last session. Per Epic, patient is taking Xarelto. See attachments for full report and strips. lgy/rma us Marlo Davison MD [facility] CARDIAC CATH ORDERABLES Final Result [facility] 1 [place], [place] [phone] documented in this encounter Visit Diagnoses Not on filedocumented in this encounter Additional Health Concerns Assessment Noted Time A fall risk assessment has been complete d for the patient 11/10/2019 10:26 AM EST documented as of this encounter Care Teams Braille Transcriber Relationship Specialty Start Date End Date Rosalino Pichardo DO [address] [place] [address] PCP - General 07/13/09 Jose Hinds MD [address] [place] [address] Consulting Physician Internal Medicine - Clinical Cardiac Electrophysiology 04/16/17 Marlo Davison MD [address] [place] [address] Internal Medicine-Cardiovascular Disease 12/21/23 documented as of this encounter
--- OUTSIDE RECORDS SUMMARY | 2025-09-04 09:46 | XMS_ITS | Clinical Summary ---
Author Organization [facility] Address [address] [place] [address] Care Team Providers Care Veterans Contact Representative Name Role Phone Unavailable Primary Care Provider Unavailabl e Social History Tobacco Use Types Packs/Day Years Used Date Smoking Tobacco: Never Assessed Sex and Gender Information Value Date Recorded Sex Assigned at Not on file Legal Sex Male 10:03 AM EDT Gender Identity Not on file Sexual Orientation Not on file Plan of Treatment Upcoming Encounters Date Type Department Care Team (Late st Contact Info) Description 09/07/2025 1:00 PM EST Office Visit [facility] Multidisciplinary Oncology Clinic [address] [place] [address] Jose Martin García MD [address] [address] Health Maintenance Due Date Last Done Comments [facility]-Depression Screening 1935 [facility]-Medicare Annual Wellness (AWV) 1935 [facility]-Infant/Child/Adol SDOH Screenings 1935 [facility]- SDOH Screenings 1955 [facility]-Adult SDOH Screenings 1955 [facility]-Pneumococcal Vaccine: 50+ Years (1 of 2 - PCV) 1956 [facility]-Zoster Vaccines (1 of 2) 1956 [facility]-RSV Vaccine: 60+ Years or (1 - 1-dose 75+ series) 2012 [id number] Vaccine ( season) 2025 09/26/2022, 02/04/2022, 10/04/2021, Additional history exists [facility]-Influenza Vaccine (#1) 2025 [facility]-DTaP,Tdap,and Td Vaccines (3 - Td or Tdap) 03/19/2027 03/19/2017, 07/15/2016 HPV Vaccines Aged Out No longer eligi ble based on patient's age to complete this topic [facility]-HIB Vaccines Aged Out No longer e ligible based on patient's age to complete this topic [facility]-Hepatitis A Vaccines Aged Out No longer eligible based on patient's age to complete this topic [facility]-IPV Vaccines Aged Out No longer e ligible based on patient's age to complete this topic [facility]-Rotavirus Vaccines Aged Out No lo nger eligible based on patient's age to complete [place] [address]
--- OUTSIDE RECORDS SUMMARY | 2025-09-04 09:46 | XMS_ITS | Encounter Summary ---
Author Organization [place] [address] Care Team Providers Care Machining Engineer Name Role Phone Rosalino Pichardo DO Primary Care Provider [phone] Jose Hinds MD Unavailable [phone] Marlo Davison MD Unavailable [phone] Encounter Details Date Type Department Care Team (Late st Contact Info) Description 05/26/2025 Results Follow-Up SE[facility] [address] [place] [phone] Rosalino Pichardo DO [address] [place] [address] LIPID SCREEN, HEPATIC FUNCTION PANEL, BASIC METABOLIC [...] documented as of this encounter Care Teams Machining Engineer Relationship Specialty Start Date End Date Rosalino Pichardo DO Formerly named [facility] [place] [address] PCP - General 07/13/09 Jose Hinds MD [address] [place] [address] [place] [address] Consulting Physician Internal Medicine - Clinical Cardiac Electrophysiology 04/16/17 Marlo Davison MD [address] [place] [address] Internal Medicine-Cardiovascular Disease 12/21/23 documented as of this encounter
[2025-09-04] MEDS: IRON SUCROSE COMPLEX 200 MG in 0.9 % SODIUM CHLORIDE 100 ML 220 MG IV (10:02)
[2025-09-04 10:05] VITALS: BP 101/65; PULSE 61; RESP 18; O2SAT 97
[2025-09-04 10:40] VITALS: BP 121/66; PULSE 60
[2025-09-04] MEDS: SODIUM CHLORIDE 0.9% 10ML FLUSH SYRINGE 10 ML IV (10:40)
== END 2025-09-04 23:59 | disposition home or self-care (01) ==
LOC: INF 09:42
PROVIDERS: PCP Family Medicine; Visit Provider Internal Medicine Medical Oncology
DX: D64.89 Other specified anemias (principal)
CPT/HCPCS: 96365; J1756

== ENCOUNTER 2025-09-06 10:51 | Outpatient (CLI) | payer MEDICARE, SELFPAY ==
--- OUTSIDE RECORDS SUMMARY | 2025-09-06 11:15 | XMS_ITS | Clinical Summary ---
Author Organization [facility] Address [address] [place] [address] Phone Care Team Providers Care Risk Control Consultant Name Role Phone Rosalino Pichardo DO Primary Care Provider [phone] Jose Hinds MD Unavailable [phone] Marlo Davison MD Unavailable [phone] Allergies Active Allergy Reactions Criticality Noted Date [...] Take 5,000 Units by mouth daily. Active FA/MV,CA,IRON,MS N/LYCOPENE/LUT (MULTIVITAL ORAL) Take 1 Tab by [...] completed by Erika Beltre RN on 01/22/2024. [facility] - Vaibhav Martinez MD Interventional Pain Protocol: Rakesh report completed (EVERY 3 MONTHS) ( ) [facility] [place] [facility] [address] [place] - [phone] PACEMAKER DEPENDENT [facility] additional info (Transportation, WC, Compound, No Show, PPW) Problem Noted Date Diagnosed Date Cardiomyopathy 02/18/2024 Chronic combined systolic (c ongestive) and diastolic (congestive) heart failure 02/18/2024 Overview (02/18/2024): Documented on 02/04/2022 by RSOALINO PICHARDO Dizziness 02/18/2024 Hx of chronic congestive heart failure 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 02/18/2024 Left main coronary artery disease 02/18/2024 Presence of biventricular AICD 02/18/2024 Atrial fibrillation 10/08/2023 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 Diarrhea 08/01/2020 Overview (08/01/2020): Added automatically from request for surgery [id number] Lumbar degenerative disc disease 02/02/2020 Lumbosacral spondylosis [...] (09/17/2017): Added automatically from request for surgery [id number] Combined systolic and diastolic congestive heart failure [...] (09/02/2017): Added automatically from request for surgery [id number] Chest pain 09/01/2017 09/07/2017 Overview (09/05/2017): Added automatically from request for surgery [id number] Chest pain 04/02/2017 04/06/2017 Encounters Date Type Department Care Team Description 06/23/2025 12:30 PM EDT Office Visit ENT [facility] [address] [place] [address] Hunter [...] balloon dilation; Surgeon: Hunter Aguirre MD; Location: [facility]; Service: Endoscopy UPPER GASTROINTESTINAL ENDOSCOPY 12/16/2016 N/A ESOPHAGOGASTRODUODENOSCOPY; Surgeon: Hunter Aguirre MD; Location: [facility]; Service: Endoscopy PACEMAKER INSERTION 04/02/2017 Left Medtronic, dual chamber pacemaker by Dr. Hinds CORONARY ANGIOPLASTY 09/02/2017 MARY to OM and left circ CATARACT REMOVAL 03/16/2018 Right CATARACT REMOVAL 03/16/2018 Right Right eye CATARACT EXTRACTION WITH PHACOEMULSIFICATION AND INTRAOCULAR LENS; Surgeon: Mauro Guzman MD; Location: [facility]; Service: Ophthalmology Medical devices from this [...] HTN (hypertension) Pericarditis ~2017 I have gone [facility] and now exercise on my [...] [facility] RMA Medical Devices Implanted Type Area Scientist/Engineer Device Identifier Shelf Expiration Date Model / Serial / Lot Lead Pacing Implantable Capsurefix Novus 52cm Atrial/Ventric - [id number] Implanted:Qty: 1 on 04/02/2017 by Jose Hinds MD at [facility] Lead MEDTRON[employer]:PACING SYS 5076-52 / [id number] / Lead Pacing Implantable Capsurefix Novus 58cm Atrial/Ventric - [id number] Implanted:Qty: 1 on 04/02/2017 by Jose Hinds MD at [facility] Lead [employer]:PACING SYS 5076-58 / [id number] / Pacemaker Advisa Dual Chamber Mri - [id number] Implanted:Qty: 1 on 04/02/2017 by Jose Hinds MD at [facility] Pacemaker MEDTRON[employer]:PACING SYS [id number] / [id number] / Stent Xience Alpine Drug Eluting 3.0mm X 18mm - [id number] Implanted:Qty: 1 on 09/02/2017 by Elizabeth Shore MD at [facility] Explanted:at [facility] (Quantity not on file) [facility]:VASC DEV [id number] / [id number] Stent Xience Alpine Drug Eluting 2.5mm X 15mm - [id number] Implanted:Qty: 1 on 09/02/2017 by Elizabeth Shore MD at [facility] Explanted:at [facility] (Quantity not on file) [facility]:VASC DEV [id number] Lens Intraocular Preloaded 19.0 Diopter - [id number] Implanted:Qty: 1 on 03/16/2018 by Mauro Guzman MD at [facility] Right: Eye [facility]:SURG 07/02/2020 [id number] 0 / [id number] / Insurance MEDICARE PPO MR MEDICARE PPO MR [facility] MEDICARE PPO MR Advance Directives For more information, please contact: [phone] * Full Code (Latest Code Status on File) Date Activated Date Inactivated Comments 09/04/2017 8:23 AM 09/06/2017 5:17 PM * Full Code Date Activated Date Inactivated Comments 04/01/2017 3:19 AM 04/03/2017 3:57 PM * Full Code Date Activated Date Inactivated Comments 04/01/2017 12:23 AM 04/01/2017 3:19 AM Care Teams Risk Control Consultant Relationship Specialty Start Date End Date Rosalino Pichardo DO [address] [place] [address] PCP - General 07/13/09 Jose Hinds MD [address] [place] [address] [place] [address] Consulting Physician Internal Medicine - Clinical Cardiac Electrophysiology 04/16/17 Marlo Davison MD [address] [place] [phone] Internal Medicine-Cardiovascular Disease 12/21/23
--- OUTSIDE RECORDS SUMMARY | 2025-09-06 11:15 | XMS_ITS | Encounter Summary ---
Author Organization [place] [address] Care Team Providers Care Colored Leather Setter Name Role Phone Rosalino Pichardo DO Primary Care Provider [phone] Jose Hinds MD Unavailable [phone] Marlo Davison MD Unavailable [phone] Reason for Referral * Interventional Radiology (Routine) - Closed Specialty Diagnoses / Procedures Referred By Contac t Referred To Contact Radiology Diagnoses Lumbosacral spondylosis without myelopathy Procedures IR 2 LEVEL BILATERAL MEDIAL BRANCH BLOCK LUM SAC Vaibhav Martinez MD [address] [place] [address] Phone: tel: fax: Referral ID Status Reason Start Date Expiration Date Visits Re quested Visits Authorized [id number] Closed 12/08/2018 12/08/2019 1 1 Encounter Details Date Type Department Care Team (Late st Contact Info) Description 12/08/2018 E-Visit [facility] [place] [address] [place] [address] Vaibhav Martinez MD [address] [place] [address] Repeat Procedure Social History Tobacco [...] documented as of this encounter Care Teams Colored Leather Setter Relationship Specialty Start Date End Date Rosalino Pichardo DO [address] [place] [address] PCP - General 07/13/09 Jose Hinds MD [address] [place] [address] Consulting Physician Internal Medicine - Clinical Cardiac Electrophysiology 04/16/17 Marlo Davison MD [address] [place] [phone] Internal Medicine-Cardiovascular Disease 12/21/23 documented as of this encounter
--- OUTSIDE RECORDS SUMMARY | 2025-09-06 11:15 | XMS_ITS | Encounter Summary ---
Author Organization [place] [address] Care Team Providers Care Electrical And Instrumentation Mechanic Name Role Phone Rosalino Pichardo DO Primary Care Provider [phone] Jose Hinds MD Unavailable Marlo Davison MD Unavailable Encounter Details Date Type Department Care Team (Late st Contact Info) Description 06/29/2020 Orders Only SEP H&V CV [place] [facility] [address] [place] [address] Marlo Davison MD [address] [place] [address] Social History Tobacco Use Types [...] EDT) 06/29/2020 11:1 9 AM EDT Narrative [facility] - 07/02/2020 9:13 AM EDT 53 minutes of AF, ATP converted to SR multiple times. Rates of AF <110 and pt on Xarelto. Sensing, threshold, & impedance stable without evidence of malfunction chanel tao RNCSD us Marlo Daivson MD [facility] CARDIAC CATH ORDERABLES Final Result [facility] [address] [place] [address] documented in this encounter Visit [...] documented as of this encounter Care Teams Electrical And Instrumentation Mechanic Relationship Specialty Start Date End Date Rosalino Pichardo DO [address] [place] [address] PCP - General 07/13/09 Jose Hinds MD [address] [place] [address] Consulting Physician Internal Medicine - Clinical Cardiac Electrophysiology 04/16/17 Marlo Davison MD [address] [place] [address] Internal Medicine-Cardiovascular Disease 12/21/23 documented as of this encounter
--- OUTSIDE RECORDS SUMMARY | 2025-09-06 11:15 | XMS_ITS | Encounter Summary ---
Author Organization [place] [address] Care Team Providers Care Remote Encoding Center Manager Name Role Phone Rosalino Pichardo DO Primary Care Provider [phone] Jose Hinds MD Unavailable Marlo Davison MD Unavailable [phone] Encounter Details Date Type Department Care Team (Late st Contact Info) Description 05/03/2021 Orders Only SEP H&V [facility] [place] [facility] [address] [place] [address] Marlo Davison MD [address] [place] [address] Social History Tobacco Use Types Packs/Day [...] PM EDT) 05/03/2021 8:46 PM EDT Narrative [facility] - 05/06/2021 9:19 AM EDT Per carelink- 51 minutes in AT/AF since last session. 1 VT-NS, 5-27-21, 2 sec, HR 203 bpm. Per Epic, patient is taking Xarelto. See attachments for full report and strips. lgy/rma us Marlo Davison MD [facility] CARDIAC CATH ORDERABLES Final Result [facility] [address] [place] [address] documented in this encounter Visit Diagnoses Not on filedocumented in this encounter Additional Health Concerns Assessment Noted Time A fall risk assessment has been complete d for the patient 11/10/2019 10:26 AM EST documented as of this encounter Care Teams Remote Encoding Center Manager Relationship Specialty Start Date End Date Rosalino Pichardo DO [address] [place] [address] PCP - General 07/13/09 Jose Hinds MD [address] [place], [place] [phone] Consulting Physician Internal Medicine - Clinical Cardiac Electrophysiology 04/16/17 Marlo Davison MD [address] [place] [address] Internal Medicine-Cardiovascular Disease 12/21/23 documented as of this encounter
--- OUTSIDE RECORDS SUMMARY | 2025-09-06 11:15 | XMS_ITS | Encounter Summary ---
Author Organization [place] [address] Care Team Providers Care Clam Grader Name Role Phone Rosalino Pichardo DO Primary Care Provider [phone] Jose Hinds MD Unavailable Haleigh Amaya RN Unavailable Unavail able Marlo Davison MD Unavailable Encounter Details Date Type Department Care Team (Late st Contact Info) Description 04/02/2017 Orders Only SEP Arrhythmia Ctr [facility] [address] [facility] [address] [place] [address] Jose Hinds MD [address] [place], [place] [phone] Social History Tobacco Use Types Packs/Day Years [...] PM EDT) 04/02/2017 6:54 PM EDT Narrative [facility] - 04/02/2017 5:45 PM EDT implant report us Jose Hinds MD [facility] CARDIAC CATH ORDERAB LES Final Result [facility] [address] [place] [address] documented in this encounter Visit Diagnoses Not on filedocumented in this encounter Additional Health Concerns Infection Onset Date Last Indicated Resolved Time R/O C-Diff 07/03/2020 07/03/2020 07/03/2020 3:24 PM EDT R/O COVID-19 09/17/2020 09/18/2020 09/20/2020 8:03 PM EST Assessment Noted Time A fall risk assessment has been complete d for the patient 05/29/2016 9:03 AM EDT documented as of this encounter Care Teams Clam Grader Relationship Specialty Start Date End Date Rosalino Pichardo DO [address] [place] [address] PCP - General 07/13/09 Jose Hinds MD [address] [place] [address] Consulting Physician Internal Medicine - Clinical Cardiac Electrophysiology 04/16/17 Haleigh Amaya, RN Health Advocate 09/07/17 12/30/17 Marlo Davison MD [address] [place] [address] Internal Medicine-Cardiovascular Disease 12/21/23 documented as of this encounter
--- OUTSIDE RECORDS SUMMARY | 2025-09-06 11:15 | XMS_ITS | Clinical Summary ---
Author Organization [facility] Address [address] [place] [address] Care Team Providers Care Learning And Development Specialist Name Role Phone Rosalino Pichardo DO Primary Care Provider [phone] Encounters Date Type Department Care Team Description 09/05/2025 Lab Requisition [facility] [address] [place] [address] Jose Martin García MD Gastrointestinal hemorrhage, unspecified from Last 3 Months Social History Tobacco Use Types Packs/Day Years Used Date Smoking Tobacco: Never Assessed Sex and Gender Information Value Date Recorded Sex Assigned at Not on file Legal Sex Male 10:03 AM EDT Gender Identity Not on file Sexual Orientation Not on file Plan of Treatment Upcoming Encounters Date Type Department Care Team (Late st Contact Info) Description 09/07/2025 1:00 PM EST Office Visit [facility] Mult[facility] [address] [place] [address] Jose Martin García MD [address] [address] Health Maintenance Due Date Last Done Comments [facility]-Depression Screening 1935 [facility]-Medicare Annual Wellness (AWV) 1935 [facility]-Infant/Child/Adol SDOH Screenings 1937 [facility]- SDOH Screenings 1955 [facility]-Adult SDOH Screenings 1955 [facility]-Pneumococcal Vaccine: 50+ Years (1 of 2 - PCV) 1956 [facility]-Zoster Vaccines (1 of 2) 1956 [facility]-RSV Vaccine: 60+ Years or (1 - 1-dose 75+ series) 2012 [facility]-PIJWM-29 Vaccine ( season) 2025 09/26/2022, 02/04/2022, 10/04/2021, [...] on patient's age to complete this topic Procedures Procedure Name Priority Date/Time Associated Diagnosis Comments SURGICAL PATHOLOGY CONSULT Routine 09/05/2025 1:34 PM EST Gastrointestinal hemorrhage, unspecified from Last 3 Months Results * Surgical Pathology Consult (09/05/2025 1:34 PM EST) Case Report Sugical Pathology Consult Case: [id number] Authorizing Provider: Jose Martin García MD Collected: 09/05/2025 1338 Ordering Location: [facility] Lab Received: 09/05/2025 1333 Pathologist: Dulce Bryant MD Specimen: Stomach, [id number] 09/05/2025 3:52 PM EST [facility] Final Diagnosis SMALL INTESTINE, DUODENUM, BIOPSY ([id number] A; 08/24/2025): - NO PATHOLOGIC ABNORMALITIES. 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 STOMACH, FUNDUS, BIOPSY ([id number] C; 08/24/2025): - CHRONIC GASTRITIS WITH INTESTINAL METAPLASIA. 09/05/2025 3:52 PM EST [facility] at 1552 EST Comment Per pathology report) Immunohistochemical stains for MMR proteins: retained nuclear immunoreaction for all 4 proteins (MLH-1, MSH-2, MSH-6, and PMS-2) Immunohistochemical stain for Her-2/eugene: negative (score 1+) CLDN18 (43-14A): positive PD-L1 (22C3) Combined Positive Score: 5 09/05/2025 3:52 PM EST [facility] Clinical Information K92.2 - Gastrointestinal hemorrhage, unspecified [ICD-10-CM] 09/05/2025 3:52 PM EST [facility] Gross Description A. [id number] Received along with a corresponding pathology report from [facility] are 11 slides labeled outside case: [id number] collected on 08/24/2025. 09/05/2025 3:52 PM EST [facility] Note: A resident was involved in the service. I attest I examined the relevant preparations for the specimens and confirmed the diagnosis or interpretation. 09/05/2025 3:52 PM EST [facility] Tissue Stomach structure / Unknown 09/05/2025 1:34 PM EST 09/05/2025 1:35 PM EST us Jose Martin García MD LAB PATHOLOGY ORDERABLES Fin al Result Performing Organization Address City/State/[facility] Co de Phone Number [facility] [address] [place] [address] from Last 3 Months Insurance [facility] [place] [address] Care Teams Learning And Development Specialist Relationship Specialty Start Date End Date Rosalino Pichardo DO [address] [place] [address] PCP - General 08/02/25
--- OUTSIDE RECORDS SUMMARY | 2025-09-06 11:15 | XMS_ITS | Encounter Summary ---
Author Organization [place] [address] Care Team Providers Care Die Maker Trim Name Role Phone Rosalino Pichardo DO Primary Care Provider [phone] Jose Hinds MD Unavailable [phone] Marlo Davison MD Unavailable Encounter Details Date Type Department Care Team (Late st Contact Info) Description 10/15/2020 Orders Only SEP H&V CV [place] [facility] [address] [place] [address] Marlo Davison MD [address] [place] [address] Social History Tobacco Use Types [...] PM EST) 10/15/2020 3:19 PM EST Narrative [facility] - 10/15/2020 2:49 PM EST Per carelink- 22 minutes in AT/AF since last session. Per Epic, patient is taking Xarelto. See attachments for full report and strips. lgy/rma us Marlo Davison MD [facility] CARDIAC CATH ORDERABLES Final Result [facility] [address] [place], [place] [phone] documented in this encounter Visit Diagnoses Not on filedocumented in this encounter Additional Health Concerns Assessment Noted Time A fall risk assessment has been complete d for the patient 11/10/2019 10:26 AM EST documented as of this encounter Care Teams Die Maker Trim Relationship Specialty Start Date End Date Rosalino Pichardo DO [address] [place] [address] PCP - General 07/13/09 Jose Hinds MD [address] [place] [address] Consulting Physician Internal Medicine - Clinical Cardiac Electrophysiology 04/16/17 Marlo Davison MD [address] [place] [address] Internal Medicine-Cardiovascular Disease 12/21/23 documented as of this encounter
--- OUTSIDE RECORDS SUMMARY | 2025-09-06 11:15 | XMS_ITS | Encounter Summary ---
Author Organization [place] [address] Care Team Providers Care Avp Name Role Phone Rosalino Pichardo DO Primary Care Provider [phone] Jose Hinds MD Unavailable Marlo Davison MD Unavailable Encounter Details Date Type Department Care Team (Late st Contact Info) Description 01/23/2021 Orders Only SEP H&V CV [place] [facility] [address] [place] [address] Marlo Davison MD [address] [place] [address] Social History Tobacco Use Types Packs/Day [...] PM EDT) 01/23/2021 2:02 PM EDT Narrative [facility] - 01/24/2021 8:56 AM EDT Per carelink- 31 minutes in AT/AF since last session. Per Epic, patient is taking Xarelto. See attachments for full report and strips. lgy/rma us Marol Davison MD [facility] CARDIAC CATH ORDERABLES Final Result [facility] [address] [place] [address] documented in this encounter Visit Diagnoses Not on filedocumented in this encounter Additional Health Concerns Assessment Noted Time A fall risk assessment has been complete d for the patient 11/10/2019 10:26 AM EST documented as of this encounter Care Teams Avp Relationship Specialty Start Date End Date Rosalino Pichardo DO [address] [place] [address] PCP - General 07/13/09 Jose Hinds MD [address] [place] [address] Consulting Physician Internal Medicine - Clinical Cardiac Electrophysiology 04/16/17 Marlo Davison MD [address] [place] [address] Internal Medicine-Cardiovascular Disease 12/21/23 documented as of this encounter
--- OUTSIDE RECORDS SUMMARY | 2025-09-06 11:15 | XMS_ITS | Encounter Summary ---
Author Organization [facility] Address [address] [place] [address] Care Team Providers Care Wildlife Technician Name Role Phone Rosalino Pichardo DO Primary Care Provider [phone] Encounter Details Date Type Department Care Team (Latest Contact Info) Description 09/05/2025 Lab Requisition [facility] [address] [place] [address] Jose Martin García MD [address] [address] Gastrointestinal hemorrhage, unspecified Social History Tobacco Use Types Packs/Day Years Used Date Smoking Tobacco: Never Assessed Sex and Gender Information Value Date Recorded Sex Assigned at Not on file Legal Sex Male 10:03 AM EDT Gender Identity Not on file Sexual Orientation Not on file documented as of this encounter Plan of Treatment Upcoming Encounters Date Type Department Care Team (Late st Contact Info) Description 09/07/2025 1:00 PM EST Office Visit [facility] Multidisciplinary Oncology Clinic [address] [place] [address] Jose Martin García MD [address] [address] documented as of this encounter Procedures Procedure Name Priority Date/Time Associated Diagnosis Comments SURGICAL PATHOLOGY CONSULT Routine 09/05/2025 1:34 PM EST Gastrointestinal hemorrhage, unspecified documented in this encounter Results * Surgical Pathology Consult (09/05/2025 1:34 PM EST) Case Report Sugical Pathology Consult Case: [id number] Authorizing Provider: Jose Martin García MD Collected: 09/05/2025 1334 Ordering Location: [facility] Lab Received: 09/05/2025 1120 Pathologist: Dulce Bryant MD Specimen: Stomach, [id number] 09/05/2025 3:52 PM EST [facility] Final Diagnosis SMALL INTESTINE, DUODENUM, BIOPSY ([id number]; 08/24/2025): - NO PATHOLOGIC ABNORMALITIES. 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 STOMACH, FUNDUS, BIOPSY ([id number] C; 08/24/2025): - CHRONIC GASTRITIS WITH INTESTINAL METAPLASIA. 09/05/2025 3:52 PM EST [facility] at 1552 EST Comment Per pathology report) Immunohistochemical stains for MMR proteins: retained nuclear immunoreaction for all 4 proteins (MLH-1, MSH-2, MSH-6, and PMS-2) Immunohistochemical stain for Her-2/eugene: negative (score 1+) CLDN18 (43-14A): positive PD-L1 (22C3) Combined Positive Score: 5 09/05/2025 3:52 PM EST [facility] Clinical Information K92.2 - Gastrointestinal hemorrhage, unspecified [ICD-10-CM] 09/05/2025 3:52 PM EST [facility] Gross Description A. [id number] Received along with a corresponding pathology report from [facility] Laboratory are 11 slides labeled outside case: [id number] collected on 08/24/2025. 09/05/2025 3:52 PM EST [facility] Note: A resident was involved in the service. I attest I examined the relevant preparations for the specimens and confirmed the diagnosis or interpretation. 09/05/2025 3:52 PM EST [facility] Tissue Stomach structure / Unknown 09/05/2025 1:34 PM EST 09/05/2025 1:35 PM EST us Jose Martin García MD LAB PATHOLOGY ORDERABLES Mika al Result [facility] [address] [place] [address] documented in this encounter Visit Diagnoses Diagnosis Gastrointestinal hemorrhage, unspecified documented in this encounter Care Teams Wildlife Technician Relationship Specialty Start Date End Date Rosalino Pichardo DO [address] [place] [address] PCP - General 08/02/25 documented as of this encounter
--- OUTSIDE RECORDS SUMMARY | 2025-09-06 11:15 | XMS_ITS | Encounter Summary ---
Author Organization [place] [address] Care Team Providers Care Auto Claim Representative Name Role Phone Rosalino Pichardo DO Primary Care Provider [phone] Jose Hinds MD Unavailable [phone] Marlo Davison MD Unavailable [phone] Encounter Details Date Type Department Care Team (Late st Contact Info) Description 08/06/2021 Orders Only [facility] [address] [place] [address] Marlo Davison MD [address] [place] [address] Social History Tobacco Use Types Packs/Day [...] Pressure 121/66(2024 12:11 PM EDT) No Akilah oLredo RMA Maintain a healthy diet, exercise regularly and maintain an ideal body weight General No Emerald Patterson RMA Stay Tobacco Free Lifestyle No Emerald Patterson RMA documented as of this encounter Procedures Procedure Name Priority Date/Time Associated Diagnosis Comments PACEART REPORT Routine 08/06/2021 2:13 PM EDT documented in this encounter Results * PACEART REPORT (08/06/2021 2:13 PM EDT) 08/06/2021 2:13 PM EDT Narrative [facility] - 08/08/2021 9:58 AM EDT Per carelink- 4 minutes in AT/AF since last session. Per Epic, patient is taking Xarelto. See attachments for full report and strips. lgy/rma us Marlo Davison MD [facility] CATH ORDERABLES Final Result [facility] [address] [place], [place] [id number] documented in this encounter Visit Diagnoses Not on filedocumented in this encounter Additional Health Concerns Assessment Noted Time A fall risk assessment has been complete d for the patient 06/25/2021 8:04 AM EDT documented as of this encounter Care Teams Auto Claim Representative Relationship Specialty Start Date End Date Rosalino Pichardo DO [address] [place] [address] PCP - General 07/13/09 Jose Hinds MD [address] [place] [id number] Consulting Physician Internal Medicine - Clinical Cardiac Electrophysiology 04/16/17 Marlo Davison MD [address] [place] [address] Internal Medicine-Cardiovascular Disease 12/21/23 documented as of this encounter
--- OUTSIDE RECORDS SUMMARY | 2025-09-06 11:15 | XMS_ITS | Encounter Summary ---
Author Organization [place] [address] Care Team Providers Care Security Rep Name Role Phone Rosalino Pichardo DO Primary Care Provider [phone] Jose Hinds MD Unavailable [phone] Marlo Davison MD Unavailable [phone] Encounter Details Date Type Department Care Team (Late st Contact Info) Description 05/26/2025 Results Follow-Up [facility] [address] [place] [phone] Rosalino Pichardo DO [address] [place] [address] LIPID SCREEN, HEPATIC FUNCTION PANEL, BASIC METABOLIC [...] documented as of this encounter Care Teams Security Rep Relationship Specialty Start Date End Date Rosalino Pichardo DO [facility] [place] [address] PCP - General 07/13/09 Jose Hinds MD [address] [place] [address] [place] [address] Consulting Physician Internal Medicine - Clinical Cardiac Electrophysiology 04/16/17 Marlo Davison MD [address] [place] [address] Internal Medicine-Cardiovascular Disease 12/21/23 documented as of this encounter
[2025-09-06 11:20] VITALS: BP 126/60; PULSE 60; RESP 18; O2SAT 97
[2025-09-06] MEDS: SODIUM CHLORIDE 0.9% 10ML FLUSH SYRINGE 10 ML IV (11:20)
[2025-09-06] MEDS: IRON SUCROSE COMPLEX 200 MG in 0.9 % SODIUM CHLORIDE 100 ML 220 MG IV (11:20)
[2025-09-06 11:50] VITALS: BP 116/68; PULSE 61
== END 2025-09-06 23:59 | disposition home or self-care (01) ==
LOC: INF 10:53
PROVIDERS: PCP Family Medicine; Visit Provider Internal Medicine Medical Oncology
DX: D64.89 Other specified anemias (principal)
CPT/HCPCS: 96365; J1756

== ENCOUNTER 2025-09-11 11:43 | Outpatient (CLI) | payer MEDICARE, SELFPAY ==
--- OUTSIDE RECORDS SUMMARY | 2025-09-07 13:00 | XMS_ITS | Encounter Summary ---
Author Organization [facility] Address [address] [place] [address] Care Team Providers Care Legal Service Specialist Name Role Phone Rosalino Pichardo DO Primary Care Provider [phone] Reason for Referral * Imaging (Routine) - Authorized Specialty Diagnoses / Procedures [facility] To Contact Gastroenterology Diagnoses Malignant neoplasm of stomach, unspecified location (CMS/HCC) Procedures EUS (Upper) Jose Martin García MD [address] [address] Phone: tel: fax: Referral ID Status Reason Start Date Expiration Date Visits Requested Visits Authorized [id number] Authorized Specialty Services Required 09/07/2025 03/09/2027 1 1 * Imaging (Routine) - Authorized Specialty Diagnoses / Procedures Referred By Contac t Referred To Contact Radiology Diagnoses Malignant neoplasm of stomach, unspecified location (CMS/HCC) Procedures CT Abdomen Pelvis w IV Contrast Jose Martin García MD [address] [address] Phone: tel: fax: Referral ID Status Reason Start Date Expiration Date V isits Requested Visits Authorized [id number] Authorized 09/07/2025 03/09/2027 1 1 * Imaging (Routine) - Authorized Specialty Diagnoses / Procedures Referred By Contac t Referred To Contact Radiology Diagnoses Malignant neoplasm of stomach, unspecified location (CMS/HCC) Procedures CT Chest w IV Contrast Jose Martin García MD [address] [address] Phone: tel: fax: Referral ID Status Reason Start Date Expiration Date V isits Requested Visits Authorized [id number] Authorized 09/07/2025 03/09/2027 1 1 Reason for Visit * Reason Comments Consult Gastric cancer * Consultation (Routine) - Closed Specialty Diagnoses / Procedures Referred By Contact Referred To Contact Surgical Oncology / Hematology and Oncology Diagnoses Gastric cancer (CMS/HCC) Alfonso Wilde MD [address] [place] [address] Phone: tel:[phone] fax:[phone] [facility] [address] [place] [address] Phone: tel: fax: Referral ID Status Reason Start Date Expiration Date V isits Requested Visits Authorized [id number] Closed Specialty Services Required 09/01/2025 03/03/2027 1 1 Encounter Details Date Type Department Care Team (Latest Contact Info) Description 09/07/2025 1:00 PM EST Office Visit [facility] [address] [place] [phone] Jose Martin García MD [address] [address] Malignant neoplasm of stomach, unspecified location (CMS/HCC) (Primary Dx) Social History Tobacco Use Types Packs/Day Years Used Date Smoking Tobacco: Former Cigarettes Smokeless Tobacco: Never Tobacco Cessation:Counseling Given: Not Answered Alcohol Use Standard Drinks/Week Comments Yes 1 (1 standard drink = 0.6 oz pur e alcohol) Sex and Gender Information Value Date Recorded Sex Assigned at Not on file Legal Sex Male 10:03 AM EDT Gender Identity Not on file Sexual Orientation Not on file documented as of this encounter Last Filed Vital Signs Vital Sign Reading Time Taken Comments Blood Pressure 148/73 09/07/2025 1:31 PM EST Pulse 58 09/07/2025 1:31 PM EST Temperature 36.4 C (97.5 F) 09/07/2025 1:31 PM EST Respiratory Rate - - Oxygen Saturation 99% 09/07/2025 1:31 PM EST Inhaled Oxygen Concentration - - Weight 81.6 kg (180 lb) 09/07/2025 1:31 PM EST Height 185.4 cm (6' 1 ) 09/07/2025 1:31 PM EST Body Mass Index 23.75 09/07/2025 1:31 PM EST documented in this encounter Miscellaneous Notes * Progress Notes - Nhung Pang MD - 09/07/2025 1:00 PM EST Surgical Oncology Outpatient Consultation Requesting Service: gastroenterology (Alfonso Wilde) Chief complaint: Hunter Nayak is a 89 y.o. seen in consultation from Dr. Alfonso Wilde for newly diagnosed gastric cancer. History of Present Illness: HPI Mr. Nayak is an 89 year old male who presents for evaluation and management of newly diagnosed gastric cancer. Patient underwent EGD after found to have significant new anemia after ED visit. 11-12mm gastric lesion was identified in fundus along greater curvature (4cm from hiatus) and biopsy confirmed invasive gastric adenocarcinoma. MSI intact, [id number] negative, CLDN18 positive, PDL1 score 5. Noted to also have 4cm hiatal hernia and distal Schatzki's ring which was dilated. Pathology reviewed here showing invasive moderate to poorly differentiated adenocarcinoma intestinal type, background biopsy with chronic gastritis and intestinal metaplasia. Patient states he clinically feels well. He is undergoing iron transfusions. He denies current dysphagia, N/V, significant weight loss or change in appetite. He has had recent dyspnea on exertion andchest pain responding to nitroglycerin several times in the last few months. He states he can typically walk without issue. Prior colonoscopies years ago were all normal. He does have history of cardiac disease including afib on Xarelto with pacemaker/defibrillator placement and possible heart failure diagnosis. Denies known history of AL. Denies known renal disease but has elevated Cr on recent labs. He has history of skin cancers but no other personal history of cancer. Denies prior surgeries. Denies smoking, alcohol or drug use. Denies family history of cancer. He lives with his in [place], has 2 children, 5 grandchildren and 1 great granchild. Past Medical History: Past Medical History: Diagnosis Date Heart problem Problem List: Patient Active Problem List Diagnosis Heart problem Past Surgical History: Past Surgical History: Procedure Laterality Date CARDIAC PACEMAKER PLACEMENT CARDIAC STENT Social History: Tobacco: Tobacco Use: Medium Risk (09/07/2025) Patient History Smoking Tobacco Use: Former Smokeless Tobacco Use: Never Passive Exposure: Not on file Alcohol: Alcohol Use: Not on file Illicit drug use: Social History Substance and Sexual Activity Drug Use Never Allergies: No Known Allergies Family Medical History: family history includes Heart Problem in his brother and mother. Home Medications: Prior to Admission medications Not on File Review of Systems: 14 ROS was conducted and is otherwise negative unless noted in HPI. Physical exam: GENERAL: WD, WN, NAD. EYES: No scleral icterus or conjunctivitis HENT: Atraumatic, normocephalic, nares patent, mucus membranes moist NECK: Supple, no JVD RESP/CHEST: Symmetric expansion; non labored. CARD: Regular rate and rhythm Extremities: No cyanosis or clubbing. GI: No organomegaly or masses. Soft, nondistended. SKIN: No rash, sores, lesions or subcutaneous nodules. NEURO: AAOx4. Motor intact and no focal deficits PSYCH: Mood and affect congruent and appropriate to situation. Objective: All laboratory, images, tracings, and vital sign data are personally reviewed unless otherwise noted. Visit Vitals BP (!) 148/73 Pulse 58 Temp 36.4 ??C (97.5 ??F) Ht 1.854 m (6' 1 ) Wt 81.6 kg (180 lb) SpO2 99% BMI 23.75 kg/m?? No results found for: WBC , HGB , HCT , MCV , PLT Lab Results Component Value Date CREATININE 1.45 (H) 05/26/2025 BUN 30 (H) 05/26/2025 NA 139 05/26/2025 K 4.4 05/26/2025 CL 102 05/26/2025 No results found for: ALT , AST , GGT , ALKPHOS , BILITOT No results found for: PREALBUMIN No results found for: CEA , CA19 , CA125 , CHROMOGRANIN No results for input(s): CA199 in the last [id number] hours. Pathology report reviewed as above Radiographics/Diagnostics: No imaging to review Assessment & Plan: I had a lengthy conversation with the patient and accompanying family regarding the role for surgery, chemotherapy and chemoradiation for gastric malignancy. I explained the anatomy and function of the upper GI tract. I used figures to describe the tumor location within the stomach. We discussed that the lesion that represents gastric adenocarcinoma is endoscopically small and will need further workup for staging. Depending on stage, possible treatment options include surgical oncologic resection (total gastrectomy and reconstruction), endoscopic resection, local resection (wedge gastrectomy), nonsurgical management with radiation or even chemotherapy if disease is more advanced. We will start with CT chest, abdomen, pelvis and endoscopic ultrasound to complete staging. We willalso obtain labs today. Will have patient follow up in 2-4 weeks after completion of these studies. I spent 60 minutes was spent on this encounter; including preparing to see the patient, which involved review/interpretation of diagnostics and reports; obtaining and/or reviewing separately obtainedhistory; performing appropriate physical exam; ordering/scheduling medications, tests or procedures; communicating findings, discussing diagnosis, prognosis, and treatment plans and counseling/educating the patient, family and/or caregiver; documentation in EMR; and care coordination. His chronic comorbid conditions that impact our treatment planning include: Cardiac Arrhythmia Congestive Heart Failure (CHF) - control uncertain, with last ECHO of: No echocardiogram results found for the past 12 months Anemia I saw and evaluated the patient with the resident/fellow. I discussed the case with the resident/fellow and agree with the findings and plan as documented. Jose Martin García MD Cosigned by Jose Martin García MD at 09/07/2025 3:01 PM EST documented in this encounter Plan of Treatment Upcoming Encounters Date Type Department Care Team (Latest Contact Info) Description 09/08/2025 11:59 PM EST Anesthesia Event [facility] [address] [place] [address] Pamela Buckley, GENERAL CAR SUPERVISOR YARD [address] [place] [address] 09/11/2025 4:20 PM EST Appointment [facility] [address] [place] [address] 09/14/2025 2:00 PM EST Appointment [facility] [address] [place] [address] Rene Mejia MD [address] [place] [address] 09/19/2025 10:10 AM EST Office Visit [facility] [address] [place] [address] Jose Martin García MD [address] [facility] [address] [place] [address] Scheduled Orders Name Type Priority Associated Diagnoses Orde r Schedule CT Chest w IV Contrast Imaging Routine Malignant neoplasm of stomach, unspecified location (CMS/HCC) Expected: 09/14/2025, Expires: 03/11/2027 CT Abdomen Pelvis w IV Contrast Imaging Routine Malignant neoplasm of stomach, unspecified location (CMS/HCC) Expected: 09/14/2025, Expires: 03/11/2027 EUS (Upper) Endoscopy Routine Malignant neoplasm of stomach, unspecified location (CMS/HCC) Expected: 09/07/2025, Expires: 09/07/2026 documented as of this encounter Results * (ABNORMAL) Prothrombin Time/INR (09/07/2025 2:16 PM EST) Prothrombin Time 25.2(H) 12.0 - 14.3 sec LAB COAGULATION METHOD 09/07/2025 4:36 PM EST [facility] INR 2.2(H) 0.9 - 1.1 LAB COAGULATION METHOD 09/07/2025 4:36 PM EST [facility] Blood Venous blood specimen / Unknown Venipuncture / Unknown 09/07/2025 2:16 PM EST 09/07/2025 4:19 PM EST Narrative [facility] - 09/07/2025 4:36 PM EST OPTIMAL INR RANGES FOR PATIENT ON ORAL ANTICOAGULANT THERAPY Prevention of venous thromboembolism INR 2.0 to 3.0 In patients with heart disease: Atrial fibrillation INR 2.0 to 3.0 Valvular heart disease INR 2.0 to 3.0 Tissue heart valves INR 2.0 to 3.0 Mechanical prosthetic valves INR 2.5 to 3.5 Prevention of recurrent AL INR 2.5 to 3.5 Jose Martin García MD LAB BLOOD ORDERABLES Final R esult Performing Organization Address [facility] [place] [address] * (ABNORMAL) APTT (09/07/2025 2:16 PM EST) aPTT 40(H) 25 - 35 sec LAB COAGULATION METHOD 09/07/2025 4:36 PM EST [facility] Blood Venous blood specimen / Unknown Venipuncture / Unknown 09/07/2025 2:16 PM EST 09/07/2025 4:19 PM EST Jose Martin García MD LAB BLOOD ORDERABLES Final R esult Performing Organization Address [facility] [place] [address] * Prealbumin, Plasma (09/07/2025 2:16 PM EST) Prealbumin, Plasma 20.1 20.0 - 41.0 mg/dL 09/07/2025 4:50 PM EST [facility] Blood Venous blood specimen / Unknown Venipuncture / Unknown 09/07/2025 2:16 PM EST 09/07/2025 4:19 PM EST Jose Martin García MD LAB BLOOD ORDERABLES Final R esult Performing Organization Address [facility] Co de Phone Number [facility] [address] [place] [address] * (ABNORMAL) Comprehensive Metabolic Panel, Plasma (09/07/2025 2:16 PM EST) Glucose, Plasma 106(H) 74 - 99 mg/dL 09/07/2025 4:50 PM EST [facility] BUN, Plasma 31(H) 8 - 23 mg/dL 09/07/2025 4:50 PM EST [facility] Creatinine, Plasma 1.68(H) 0.70 - 1.20 mg/dL 09/07/2025 4:50 PM EST [facility] BUN/Creatinine Ratio 18 09/07/2025 4:50 PM EST [facility] Sodium, Plasma 139 136 - 145 mmol/L 09/07/2025 4:50 PM EST [facility] Potassium, Plasma 4.1 3.6 - 4.9 mmol/L 09/07/2025 4:50 PM EST [facility] Chloride, Plasma 102 97 - 107 mmol/L 09/07/2025 4:50 PM EST [facility] CO2, Plasma 26 22 - 29 mmol/L 09/07/2025 4:50 PM EST [facility] Anion Gap 11 6 - 16 mmol/L 09/07/2025 4:50 PM EST [facility] Total Calcium, Plasma 8.7(L) 8.9 - 10.2 mg/dL 09/07/2025 4:50 PM EST [facility] Total Protein 7.2 6.3 - 7.9 g/dL 09/07/2025 4:50 PM [facility] Albumin, Plasma 4.1 3.5 - 5.2 g/dL 09/07/2025 4:50 PM EST [facility] AST, Plasma 21 10 - 50 U/L 09/07/2025 4:50 PM EST [facility] ALT, Plasma 17 10 - 50 U/L 09/07/2025 4:50 PM EST [facility] Alkaline Phosphatase, Plasma 80 40 - 115 U/L 09/07/2025 4:50 PM [facility] Total Bilirubin, Plasma 0.2 0.2 - 1.1 mg/dL 09/07/2025 4:50 PM EST [facility] eGFRcr 38.8 mL/min/1.7 3m*2 09/07/2025 4:50 PM EST [facility] Comment:Reported eGFRcr in m L/min/1.73m2 is based the CKD-EPI 2020 equation that does not use a race coefficient. Blood Venous blood specimen / Unknown Venipuncture / Unknown 09/07/2025 2:16 PM EST 09/07/2025 4:19 PM EST us Jose Martin García MD LAB BLOOD ORDERABLES Final R esult [facility] [address] [place] [address] * (ABNORMAL) CBC and Differential (09/07/2025 2:16 PM EST) WBC Count 8.81 3.70 - 10.30 10*3/uL LAB HEMATOLOGY METHOD 09/07/2025 4:35 PM EST [facility] RBC Count 2.61(L) 4.60 - 6.10 10*6/uL LAB HEMATOLOGY METHOD 09/07/2025 4:35 PM EST [facility] HGB 6.6(L) 13.7 - 17.5 g/dL LAB HEMATOLOGY METHOD 09/07/2025 4:35 PM EST [facility] HCT 22.6(L) 40.0 - 51.0 % LAB HEMATOLOGY METHOD 09/07/2025 4:35 PM EST [facility] Platelet Count 136(L) 155 - 369 10*3/uL LAB HEMATOLOGY METHOD 09/07/2025 4:35 PM EST [facility] MCV 87 79 - 98 fL LAB HEMATOLOGY METHOD 09/07/2025 4:35 PM EST [facility] MCH 25.3(L) 26.0 - 32.0 pg LAB HEMATOLOGY METHOD 09/07/2025 4:35 PM EST [facility] MCHC 29.2(L) 30.7 - 35.5 g/dL LAB HEMATOLOGY METHOD 09/07/2025 4:35 PM EST [facility] RDW 15.6(H) 11.5 - 14.5 % LAB HEMATOLOGY METHOD 09/07/2025 4:35 PM EST [facility] MPV 12.3 8.8 - 12.5 fL LAB HEMATOLOGY METHOD 09/07/2025 4:35 PM EST [facility] nRBC 1.2(H) <=0.0 per 100 WBCs LAB HEMATOLOGY METHOD 09/07/2025 4:35 PM EST [facility] Differential Type Automated LAB HEMATOLOGY METHOD 09/07/2025 4:35 PM EST [facility] Neutrophils % 64 % LAB HEMATOLOGY METHOD 09/07/2025 4:35 PM EST [facility] Lymphocytes % 21 % LAB HEMATOLOGY METHOD 09/07/2025 4:35 PM EST [facility] Monocytes % 11 % LAB HEMATOLOGY METHOD 09/07/2025 4:35 PM EST [facility] Eosinophils % 2 % LAB HEMATOLOGY METHOD 09/07/2025 4:35 PM EST [facility] Basophils % 1 % LAB HEMATOLOGY METHOD 09/07/2025 4:35 PM EST [facility] Immature Granulocytes % 1 % LAB HEMATOLOGY METHOD 09/07/2025 4:35 PM EST [facility] Neutrophils Absolute 5.70 1.60 - 6.10 10*3/uL LAB HEMATOLOGY METHOD 09/07/2025 4:35 PM EST [facility] Lymphocytes Absolute 1.82 1.20 - 3.90 10*3/uL LAB HEMATOLOGY METHOD 09/07/2025 4:35 PM EST [facility] Monocytes Absolute 0.94(H) 0.30 - 0.90 10*3/uL LAB HEMATOLOGY METHOD 09/07/2025 4:35 PM [facility] Eosinophils Absolute 0.19 0.00 - 0.50 10*3/uL LAB HEMATOLOGY METHOD 09/07/2025 4:35 PM EST [facility] Basophils Absolute 0.05 0.00 - 0.10 10*3/uL LAB HEMATOLOGY METHOD 09/07/2025 4:35 PM [facility] Immature Granulocytes Absolute 0.11(H) 0.00 - 0.06 10*3/uL LAB HEMATOLOGY METHOD 09/07/2025 4:35 PM [facility] Blood Venous blood specimen / Unknown Venipuncture / Unknown 09/07/2025 2:16 PM EST 09/07/2025 4:24 PM EST [facility] - 09/07/2025 4:35 PM EST Therapeutic decision making should be based on absolute values, rather than percentages. us Jose Martin García MD LAB BLOOD ORDERABLES Final R esult [facility] [address] [place] [address] documented in this encounter Visit Diagnoses Diagnosis Malignant neoplasm of stomach, unspecified location (CMS/HCC)- Primary documented in this encounter Additional Health Concerns Assessment Noted Time A fall risk assessment has been complete d for the patient 09/07/2025 1:35 PM EST A Body Mass Index follow-up plan has been documented for the patient 09/07/2025 3:02 PM EST documented as of this encounter Care Teams Legal Service Specialist Relationship Specialty Start Date End Date Rosalino Pichardo DO [address] [place] [address] PCP - General 08/02/25 documented as of this encounter
--- OUTSIDE RECORDS SUMMARY | 2025-09-08 12:30 | XMS_ITS | Encounter Summary ---
Author Organization Healthcare Address [address] [place] [address] Care Team Providers Care Crusher Loader Equipment Operator Name Role Phone Rosalino Pichardo DO Primary Care Provider [phone] Encounter Details Date Type Department Care Team (Late st Contact Info) Description 09/08/2025 12:30 PM EST Pre-Admission Testing [place] [facility] Pre-[facility] Clinic [address], [address] [place] [address] Anesthesia Record Procedure Summary Procedure [...] Anesthesia: Date of last anesthetic: EGD at [facility] 08/2025. Tolerated well Does not have a history of anesthetic complications, malignant hyperthermia, obstructive sleep apnea and PONV. Cardiovascular: angina, atrial fibrillation, CAD (Hx of PCI. last stents 10/2024. Takes Plavix. Follows with Dr. Mario [facility]), cardiomyopathy, dyspnea (complete heart block- lutherker depnedent. A fib), hyperlipidemia, pacemaker (S/P Medtronic dual chamber pacemaker implant 04/02/2017. 10/2024. Upgraded to ICD with defibrillator) and past [facility] ([place]). Does not have CHF, murmur or syncope. hypertension: Patient has chest pain (NTG x 2 in past 2 weeks. Last saw Cardiogist 7-10 days ago. On BB, Statin,Nitrates, ARB). 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 Sleep in regular bed, [...] Does not have cervical spine limited mobility. [facility] additional comments: Skin cancers Gastrointestinal: Does not [...] not have thyroid disorder. More recently had [facility] 10/2024 with PCI and pacemaker upgraded with ICD 10/2024. Records requested. Now follows with Dr. Mario, [place] ([facility]) 10/26/23 [facility] Dist LM lesion is 50% stenosed. [...] [6] No current outpatient medications on file. documented in this encounter Plan of Treatment Upcoming Encounters Date Type Department Care Team (Latest Contact Info) Description 09/08/2025 11:59 PM EST Anesthesia Event [facility] [address] [place] [address] Pamela Buckley APRN [address] [place] [address] 09/11/2025 4:20 PM EST Appointment [facility] [address] [place] [address] 09/14/2025 2:00 PM EST Appointment [facility] [address] [place] [address] Rene Mejia MD [address] [place] [address] 09/19/2025 10:10 AM EST Office Visit [facility] [address] [place] [address] Jose Martin García MD [address] [phone] documented as of this encounter Goals Goal [...] documented as of this encounter Care Teams Crusher Loader Equipment Operator Relationship Specialty Start Date End Date Rosalino Pichardo DO [address] [place] [address] PCP - General 08/02/25 documented as of this encounter
--- OUTSIDE RECORDS SUMMARY | 2025-09-11 11:45 | XMS_ITS | Encounter Summary ---
Author Organization Healthcare Address [address] [place] [address] Care Team Providers Care Care Taker Name Role Phone Rosalino Pichardo DO Primary Care Provider [phone] Encounter Details Date Type Department Care Team (Latest Contact Info) Description 09/05/2025 Lab Requisition [facility] [address] [place] [address] Jose Martin García MD [address] [address] Gastrointestinal hemorrhage, unspecified Social History [...] EST Anesthesia Event [facility] [address] [place] [address] Pamela Buckley W, DIESEL TRUCK MECHANIC [address] [place] [address] 09/11/2025 4:20 PM EST Appointment [facility] [address] [place] [address] 09/14/2025 2:00 PM EST Appointment [facility] [address] [place] [address] Rene Mejia MD [address] [place] [address] 09/19/2025 10:10 AM EST Office Visit [facility] Multidisciplinary Oncology Clinic [address] [place] [address] Jose Martin García MD [address] [address] documented as of this encounter Procedures Procedure Name Priority Date/Time Associated Diagnosis Comments SURGICAL PATHOLOGY CONSULT Routine 09/05/2025 1:34 PM EST Gastrointestinal hemorrhage, unspecified documented in this encounter Results * Surgical Pathology Consult (09/05/2025 1:34 PM EST) Case Report Sugical Pathology Consult Case: [id number] Authorizing Provider: Jose Martin García MD Collected: 09/05/2025 [facility] Ordering Location: [facility] Lab Received: 09/05/20251334 Pathologist: Dulce Bryant MD Specimen: Stomach, [id number] 09/05/2025 3:52 PM EST [facility] Final Diagnosis SMALL INTESTINE, DUODENUM, BIOPSY ([id number]; 08/24/2025): - NO PATHOLOGIC ABNORMALITIES. 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 STOMACH, FUNDUS, BIOPSY ([id number]; 08/24/2025): - CHRONIC GASTRITIS WITH INTESTINAL METAPLASIA. 09/05/2025 3:52 PM EST [facility] at 1552 EST Comment Per pathology report) Immunohistochemical stains for MMR proteins: retained nuclear immunoreaction for all 4 proteins (MLH-1, MSH-2, MSH-6, and PMS-2) Immunohistochemical stain for Her-2/eugene: negative (score 1+) CLDN18 (43-14A): positive PD-L1 (22C3) Combined Positive Score: 5 09/05/2025 3:52 PM EST [facility] Clinical Information K92.2 - Gastrointestinal hemorrhage, unspecified [ICD-10-CM] 09/05/2025 3:52 PM EST [facility] Gross Description [id number]. [id number] Received along with a corresponding pathology report from [facility] are 11 slides labeled outside case: [id number] collected on 08/24/2025. 09/05/2025 3:52 PM EST [facility] Note: A resident was involved in the service. I attest I examined the relevant preparations for the specimens and confirmed the diagnosis or interpretation. 09/05/2025 3:52 PM EST [facility] Tissue Stomach structure / Unknown 09/05/2025 1:34 PM EST 09/05/2025 1:35 PM EST us Jose Martin García MD LAB PATHOLOGY ORDERABLES Fin al Result Performing Organization Address City/State/[facility] Co de Phone Number [facility] [address] [place] [address] documented in this encounter Visit Diagnoses Diagnosis Gastrointestinal hemorrhage, unspecified documented in this encounter Care Teams Care Taker Relationship Specialty Start Date End Date Rosalino Pichardo DO [address] [place] [address] PCP - General 08/02/25 documented as of this encounter
--- OUTSIDE RECORDS SUMMARY | 2025-09-11 11:45 | XMS_ITS | Encounter Summary ---
Author Organization [place] [address] Care Team Providers Care Etymology Teacher Name Role Phone Rosalino Pichardo DO Primary Care Provider [phone] Jose Hinds MD Unavailable Marlo Davison MD Unavailable Encounter Details Date Type Department Care Team (Late st Contact Info) Description 08/06/2021 Orders Only [facility] [address] [place] [address] Marlo Davison MD [address] [place] [phone] Social History Tobacco Use Types Packs/Day [...] PM EDT) 08/06/2021 2:13 PM EDT Narrative [facility] - 08/08/2021 9:58 AM EDT Per carelink- 4 minutes in AT/AF since last session. Per Epic, patient is taking Xarelto. See attachments for full report and strips. lgy/rma us Marlo Davison MD [facility] CARDIAC CATH ORDERABLES Final Result [facility] [address] [place], [place] [phone] documented in this encounter Visit Diagnoses Not on filedocumented in this encounter Additional Health Concerns Assessment Noted Time A fall risk assessment has been complete d for the patient 06/25/2021 8:04 AM EDT documented as of this encounter Care Teams Etymology Teacher Relationship Specialty Start Date End Date Rosalino Pichardo DO [address] [place] [address] PCP - General 07/13/09 Jose Hinds MD [address] [place] [address] Consulting Physician Internal Medicine - Clinical Cardiac Electrophysiology 04/16/17 Marlo Davison MD [address] [place] [address] Internal Medicine-Cardiovascular Disease 12/21/23 documented as of this encounter
--- OUTSIDE RECORDS SUMMARY | 2025-09-11 11:45 | XMS_ITS | Encounter Summary ---
Author Organization Healthcare Address [address] [place] [address] Care Team Providers Care Parliamentary Archivist Name Role Phone Rosalino Pichardo DO Primary Care Provider [phone] Encounter Details Date Type Department Care Team (Latest Contact Info) Description 09/07/2025 Travel Social History Tobacco Use Types Packs/Day Years Used Date Smoking Tobacco: Former Cigarettes Smokeless Tobacco: Never Alcohol Use Standard Drinks/Week [...] EST Anesthesia Event [facility] [address] [place] [address] Pamela Buckley W, PATCH FINISHER [address] [place] [address] 09/11/2025 4:20 PM EST Appointment [facility] [address] [place] [address] 09/14/2025 2:00 PM EST Appointment [facility] [address] [place] [address] Rene Mejia MD [address] [place] [address] 09/19/2025 10:10 AM EST Office Visit [facility] Multidisciplinary Oncology Clinic [address] [place] [address] Jose Martin García MD [address] [phone] documented as of this encounter Visit Diagnoses Not on filedocumented in this encounter Additional Health Concerns Assessment Noted Time A fall risk assessment has been complete d for the patient 09/07/2025 1:35 PM EST A Body Mass Index follow-up plan has been documented for the patient 09/07/2025 3:02 PM EST documented as of this encounter Care Teams Parliamentary Archivist Relationship Specialty Start Date End Date Rosalino Pichardo DO [address] [place] [address] PCP - General 08/02/25 documented as of this encounter
--- OUTSIDE RECORDS SUMMARY | 2025-09-11 11:45 | XMS_ITS | Encounter Summary ---
Author Organization [place] [address] Care Team Providers Care Religious Ritual Slaughterer Name Role Phone Rosalino Pichardo DO Primary Care Provider [phone] Jose Hinds MD Unavailable Haleigh Amaya RN Unavailable Unavail able Marlo Davison MD Unavailable Encounter Details Date Type Department Care Team (Late st Contact Info) Description 04/02/2017 Orders Only [facility] Arrhythmia Ctr Edg [address] [facility] [address] [place] [address] Jose Hinds MD [address] [place], [place] [id number] Social History Tobacco Use Types Packs/Day Years [...] PM EDT) 04/02/2017 6:54 PM EDT Narrative [facility] - 04/02/2017 5:45 PM EDT implant report us Jose Hinds MD [facility] CARDIAC CATH ORDERAB LES Final Result [facility] [address] [place] [address] documented in this encounter Visit Diagnoses Not on filedocumented in this encounter Additional Health Concerns Infection Onset Date Last Indicated Resolved Time R/O C-Diff 07/03/2020 07/03/2020 07/03/2020 3:24 PM EDT R/O COVID-19 09/17/2020 09/18/2020 09/20/2020 8:03 PM EST Assessment Noted Time A fall risk assessment has been complete d for the patient 05/29/2016 9:03 AM EDT documented as of this encounter Care Teams Religious Ritual Slaughterer Relationship Specialty Start Date End Date Rosalino Pichardo DO [address] [place] [address] PCP - General 07/13/09 Jose Hinds MD [address] [place] [address] Consulting Physician Internal Medicine - Clinical Cardiac Electrophysiology 04/16/17 Haleigh Amaya, RN Health Advocate 09/07/17 12/30/17 Marlo Davison MD [address] [place] [address] Internal Medicine-Cardiovascular Disease 12/21/23 documented as of this encounter
--- OUTSIDE RECORDS SUMMARY | 2025-09-11 11:45 | XMS_ITS | Encounter Summary ---
Author Organization Healthcare Address [address] [place] [address] Care Team Providers Care Soft Tile Setter Name Role Phone Rosalino Pichardo DO Primary Care Provider [phone] Encounter Details Date Type Department Care Team (Latest Contact Info) Description 09/08/2025 Travel Social History Tobacco Use Types Packs/Day Years Used Date Smoking Tobacco: Former Cigarettes Smokeless Tobacco: Never Comments:Quit smoking 1970 Alcohol Use Standard Drinks/Week [...] EST Anesthesia Event [facility] [address] [place] [address] Pamela Buckley, DERRICK WORKER [address] [place] [address] 09/11/2025 4:20 PM EST Appointment [facility] [address] [place] [address] 09/14/2025 2:00 PM EST Appointment [facility] [address] [place] [address] Rene Mejia MD [address] [place] [address] 09/19/2025 10:10 AM EST Office Visit [facility] Multidisciplinary Oncology Clinic [address] [place] [address] Jose Martin García MD [address] [phone] documented as of this encounter Goals Goal [...] documented as of this encounter Care Teams Soft Tile Setter Relationship Specialty Start Date End Date Rosalino Pichardo DO [address] [place] [address] PCP - General 08/02/25 documented as of this encounter
--- OUTSIDE RECORDS SUMMARY | 2025-09-11 11:46 | XMS_ITS | Encounter Summary ---
Author Organization [place] [address] Care Team Providers Care Assistant Reading Teacher Name Role Phone Rosalino Pichardo DO Primary Care Provider [phone] Jose Hinds MD Unavailable [phone] Marlo Davison MD Unavailable [phone] Encounter Details Date Type Department Care Team (Late st Contact Info) Description 01/23/2021 Orders Only SEP H&V [facility] [place] [facility] [address] [place] [address] Marlo Davison MD [address] [place] [address] Social History Tobacco Use Types Packs/Day [...] EDT) 01/23/2021 2:02 PM EDT Narrative [facility] - 01/24/2021 8:56 AM EDT Per carelink- 31 minutes in AT/AF since last session. Per Epic, patient is taking Xarelto. See attachments for full report and strips. lgy/rma us Marlo Davison MD [facility] CARDIAC CATH ORDERABLES Final Result [facility] 1 [place] [address] documented in this encounter Visit Diagnoses Not on filedocumented in this encounter Additional Health Concerns Assessment Noted Time A fall risk assessment has been complete d for the patient 11/10/2019 10:26 AM EST documented as of this encounter Care Teams Assistant Reading Teacher Relationship Specialty Start Date End Date Rosalino Pichardo DO [address] [place] [address] PCP - General 07/13/09 Jose Hinds MD [address] [place] [address] Consulting Physician Internal Medicine - Clinical Cardiac Electrophysiology 04/16/17 Marlo Davison MD [address] [place] [address] Internal Medicine-Cardiovascular Disease 12/21/23 documented as of this encounter
--- OUTSIDE RECORDS SUMMARY | 2025-09-11 11:46 | XMS_ITS | Encounter Summary ---
Author Organization [place] [address] Care Team Providers Care Farm Contractor Buyer Name Role Phone Rosalino Pichardo DO Primary Care Provider [phone] Jose Hinds MD Unavailable Marlo Davison MD Unavailable [phone] Encounter Details Date Type Department Care Team (Late st Contact Info) Description 06/29/2020 Orders Only SEP H&V CV [place] [facility] [address] [place] [address] Marlo Davison MD [address] [place] [address] Social History Tobacco Use Types [...] Author No 04/12/2020 8:43 AM EDT Sharon Merhcant MA * Does this person have serious [...] EDT) 06/29/2020 11:1 9 AM EDT Narrative [facility] - 07/02/2020 9:13 AM EDT 53 minutes of AF, ATP converted to SR multiple times. Rates of AF <110 and pt on Xarelto. Sensing, threshold, & impedance stable without evidence of malfunction chanel tao RNCSD us Marlo Davison MD [facility] CARDIAC CATH ORDERABLES Final Result [facility] [address] [place] [address] documented in this encounter Visit [...] documented as of this encounter Care Teams Farm Contractor Buyer Relationship Specialty Start Date End Date Rosalino Pichardo DO [address] [place] [address] PCP - General 07/13/09 Jose Hinds MD [address] [place] [address] Consulting Physician Internal Medicine - Clinical Cardiac Electrophysiology 04/16/17 Marlo Davison MD [address] [place] [address] Internal Medicine-Cardiovascular Disease 12/21/23 documented as of this encounter
--- OUTSIDE RECORDS SUMMARY | 2025-09-11 11:46 | XMS_ITS | Encounter Summary ---
Author Organization [place] [address] Care Team Providers Care Studio Model Name Role Phone Rosalino Pichardo DO Primary Care Provider [phone] Jose Hinds MD Unavailable [phone] Marlo Davison MD Unavailable [phone] Encounter Details Date Type Department Care Team (Late st Contact Info) Description 05/03/2021 Orders Only SEP H&V [facility] [place] [facility] [address] [place] [address] Marlo Davison MD [address] [place] [address] Social History Tobacco Use Types Packs/Day [...] PM EDT) 05/03/2021 8:46 PM EDT Narrative [facility] - 05/06/2021 9:19 AM EDT Per carelink- 51 minutes in AT/AF since last session. 1 VT-NS, 5-27-21, 2 sec, HR 203 bpm. Per Epic, patient is taking Xarelto. See attachments for full report and strips. lgy/rma us Marlo Davison MD [facility] CARDIAC CATH ORDERABLES Final Result [facility] 1 [place] [address] documented in this encounter Visit Diagnoses Not on filedocumented in this encounter Additional Health Concerns Assessment Noted Time A fall risk assessment has been complete d for the patient 11/10/2019 10:26 AM EST documented as of this encounter Care Teams Studio Model Relationship Specialty Start Date End Date Rosalino Pichardo DO [address] [place] [address] PCP - General 07/13/09 Jose Hinds MD [address] [place], [place] [address] Consulting Physician Internal Medicine - Clinical Cardiac Electrophysiology 04/16/17 Marlo Davison MD [address] [place] [address] Internal Medicine-Cardiovascular Disease 12/21/23 documented as of this encounter
--- OUTSIDE RECORDS SUMMARY | 2025-09-11 11:46 | XMS_ITS | Clinical Summary ---
Author Organization Healthcare Address [address] [place] [address] Care Team Providers Care Polytechnic Registrar Name Role Phone Rosalino Pichardo DO Primary Care Provider [phone] Allergies No known active allergies Medications acetaminophen (Tylenol) 500 MG tablet Take 2 tablets by mouth 4 times a day as needed. Active carvedilol (Coreg) 12.5 MG tablet Take 1 tablet by mouth twice a day. 01/04/2025 Active cholecalciferol (D-5000) 5,000 Units tablet Take 1 tablet by mouth daily. Active clopidogrel (Plavix) 75 MG tablet Take 1 tablet by mouth daily. 02/23/2025 Active esomeprazole (NexIUM) [address] capsule Take 1 capsule by mouth daily before breakfast. Active HYDROcodone-malinda taminophen ([place]) 10-325 MG tablet Take 1 tablet by mouth every 8 hours as needed. 01/05/2025 Active nitroglycerin (Nitrostat) 0.[address] 1 tablet under the tongue every 5 minutes as needed. 09/04/2025 Active olmesartan-hydr oCHLOROthiazide (BENIcar HCT) 40-25 MG tablet Take 1 tablet by mouth daily. 02/08/2025 Active Xarelto 20 MG tablet Take 1 tablet by mouth daily. 11/03/2024 Active Active Problems Problem Noted Date Diagnosed Date Heart problem Encounters Date Type Department Care Team Description 09/08/2025 12:30 PM EST [facility] [address] [place] [phone] 09/08/2025 Travel 09/07/2025 1:00 PM EST Office Visit [facility] [address] [place] [address] Jose Martin García MD Malignant neoplasm of stomach, unspecified location (CMS/HCC) (Primary Dx) 09/07/2025 Travel 09/05/2025 Lab Requisition [facility] [address] [place] [address] Jose Martin García MD Gastrointestinal hemorrhage, unspecified from Last 3 Months Family History Medical History Relation Name Comments Heart Problem Brother Heart Problem Mother Anesthesia problems Neg Hx Malig Hyperthermia Neg Hx Relation Name Status Comments Brother Mother Social History Tobacco Use Types Packs/Day [...] EST Inhaled Oxygen Concentration - - Weight 77.1 kg (170 lb) 09/08/2025 2:42 PM EST Height 185.4 cm (6' 1 ) 09/07/2025 1:31 PM EST Body Mass Index 22.43 09/07/2025 1:31 PM EST Plan of Treatment Upcoming Encounters Date Type Department Care Team (Latest Contact Info) Description 09/08/2025 11:59 PM EST Anesthesia Event [facility] [address] [place] [address] Pamela Buckley W, MELT SUPERINTENDANT [address] [place] [address] 09/11/2025 4:20 PM EST Appointment [facility] [address] [place] [address] 09/14/2025 2:00 PM EST Appointment [facility] [address] [place] [address] Rene Mejia MD [address] [place] [address] 09/19/2025 10:10 AM EST Office Visit [facility] [address] [place] [address] Jose Martin García MD [address] [facility] 1[address] [place] [address] Health Maintenance Due Date Last Done Comments [facility]-Depression Screening 1937 [facility]-Medicare Annual Wellness (AWV) 1937 [facility]-/Child/Adol SDOH Screenings 1937 [facility]- SDOH Screenings 1955 [facility]-Adult SDOH Screenings 1955 [facility]-Pneumococcal Vaccine: 50+ Years (1 of 2 - PCV) 1956 [facility]-Zoster Vaccines (1 of 2) 1956 [facility]-RSV Vaccine: 60+ Years or (1 - 1-dose 75+ series) 2012 [id number] Vaccine ( season) 2025 09/26/2022, 02/04/2022, 10/04/2021, [...] ed Goal Care Plan Autogenerated Problem No Darnell Akinserma Dewitt Procedures Procedure Name Priority Date/Time Associated Diagnosis Comments PROTHROMBIN TIME(PT) / INR Today 09/07/2025 2:16 PM EST Malignant neoplasm of stomach, unspecified location (CMS/HCC) APTT Routine 09/07/2025 2:16 PM EST Malignant neoplasm of stomach, unspecified location (CMS/HCC) PREALBUMIN, PLASMA Routine 09/07/2025 2: 16 PM EST Malignant neoplasm of stomach, unspecified location (CMS/HCC) COMPREHENSIVE METABOLIC PANEL, PLASMA Routine 09/07/2025 2:16 PM EST Malignant neoplasm of stomach, unspecified location (CMS/HCC) CBC WITH AUTO DIFFERENTIAL Routine 09/07/2025 2:16 PM EST Malignant neoplasm of stomach, unspecified location (CMS/HCC) SURGICAL PATHOLOGY CONSULT Routine 09/05/2025 1:34 PM EST Gastrointestinal hemorrhage, unspecified from Last 3 Months Results * (ABNORMAL) APTT (09/07/2025 2:16 PM EST) aPTT 40(H) 25 - 35 sec LAB COAGULATION METHOD 09/07/2025 4:36 PM EST [facility] Blood Venous blood specimen / Unknown Venipuncture / Unknown 09/07/2025 2:16 PM EST 09/07/2025 4:19 PM EST us Jose Martin García MD LAB BLOOD ORDERABLES Final R esult [facility] [address] [place] [address] * (ABNORMAL) Prothrombin Time/INR (09/07/2025 2:16 PM EST) Pathologist [facility] Prothrombin Time 25.2(H) 12.0 - 14.3 sec LAB COAGULATION METHOD 09/07/2025 4:36 PM EST [facility] INR 2.2(H) 0.9 - 1.1 LAB COAGULATION METHOD 09/07/2025 4:36 PM EST [facility] Blood Venous blood specimen / Unknown Venipuncture / Unknown 09/07/2025 2:16 PM EST 09/07/2025 4:19 PM EST [facility] - 09/07/2025 4:36 PM EST OPTIMAL INR RANGES FOR PATIENT ON ORAL ANTICOAGULANT THERAPY Prevention of venous thromboembolism INR 2.0 to 3.0 In patients with heart disease: Atrial fibrillation INR 2.0 to 3.0 Valvular heart disease INR 2.0 to 3.0 Tissue heart valves INR 2.0 to 3.0 Mechanical prosthetic valves INR 2.5 to 3.5 Prevention of recurrent PR INR 2.5 to 3.5 us Jose Martin García MD LAB BLOOD ORDERABLES Final R esult [facility] [address] [place] [address] * (ABNORMAL) CBC and Differential (09/07/2025 2:16 PM EST) Pathologist [facility] WBC Count 8.81 3.70 - 10.30 10*3/uL LAB HEMATOLOGY METHOD 09/07/2025 4:35 PM EST [facility] RBC Count 2.61(L) 4.60 - 6.10 10*6/uL LAB HEMATOLOGY METHOD 09/07/2025 4:35 PM EST [facility] HGB 6.6(L) 13.7 - 17.5 g/dL LAB HEMATOLOGY METHOD 09/07/2025 4:35 PM EST [facility] HCT 22.6(L) 40.0 - 51.0 % LAB HEMATOLOGY METHOD 09/07/2025 4:35 PM EST [facility] Platelet Count 136(L) 155 - 369 10*3/uL LAB HEMATOLOGY METHOD 09/07/2025 4:35 PM EST [facility] MCV 87 79 - 98 fL LAB HEMATOLOGY METHOD 09/07/2025 4:35 PM [facility] MCH 25.3(L) 26.0 - 32.0 pg LAB HEMATOLOGY METHOD 09/07/2025 4:35 PM [facility] MCHC 29.2(L) 30.7 - 35.5 g/dL LAB HEMATOLOGY METHOD 09/07/2025 4:35 PM [facility] RDW 15.6(H) 11.5 - 14.5 % LAB HEMATOLOGY METHOD 09/07/2025 4:35 PM [facility] MPV 12.3 8.8 - 12.5 fL LAB HEMATOLOGY METHOD 09/07/2025 4:35 PM [facility] nRBC 1.2(H) <=0.0 per 100 WBCs LAB HEMATOLOGY METHOD 09/07/2025 4:35 PM [facility] Differential Type Automated LAB HEMATOLOGY METHOD 09/07/2025 4:35 PM [facility] Neutrophils % 64 % LAB HEMATOLOGY METHOD 09/07/2025 4:35 PM [facility] Lymphocytes % 21 % LAB HEMATOLOGY METHOD 09/07/2025 4:35 PM [facility] Monocytes % 11 % LAB HEMATOLOGY METHOD 09/07/2025 4:35 PM [facility] Eosinophils % 2 % LAB HEMATOLOGY METHOD 09/07/2025 4:35 PM [facility] Basophils % 1 % LAB HEMATOLOGY METHOD 09/07/2025 4:35 PM [facility] Immature Granulocytes % 1 % LAB HEMATOLOGY METHOD 09/07/2025 4:35 PM [facility] Neutrophils Absolute 5.70 1.60 - 6.10 10*3/uL LAB HEMATOLOGY METHOD 09/07/2025 4:35 PM [facility] Lymphocytes Absolute 1.82 1.20 - 3.90 10*3/uL LAB HEMATOLOGY METHOD 09/07/2025 4:35 PM [facility] Monocytes Absolute 0.94(H) 0.30 - 0.90 10*3/uL LAB HEMATOLOGY METHOD 09/07/2025 4:35 PM [facility] Eosinophils Absolute 0.19 0.00 - 0.50 10*3/uL LAB HEMATOLOGY METHOD 09/07/2025 4:35 PM [facility] Basophils Absolute 0.05 0.00 - 0.10 10*3/uL LAB HEMATOLOGY METHOD 09/07/2025 4:35 PM EST [facility] Immature Granulocytes Absolute 0.11(H) 0.00 - 0.06 10*3/uL LAB HEMATOLOGY METHOD 09/07/2025 4:35 PM EST [facility] Blood Venous blood specimen / Unknown Venipuncture / Unknown 09/07/2025 2:16 PM EST 09/07/2025 4:24 PM EST Narrative [facility] - 09/07/2025 4:35 PM EST Therapeutic decision making should be based on absolute values, rather than percentages. us Jose Martin García MD LAB BLOOD ORDERABLES Final R esult Performing Organization Address [facility]/ZIP Co de Phone Number [facility] [address] [place] [address] * Prealbumin, Plasma (09/07/2025 2:16 PM EST) Prealbumin, Plasma 20.1 20.0 - 41.0 mg/dL 09/07/2025 4:50 PM EST [facility] Blood Venous blood specimen / Unknown Venipuncture / Unknown 09/07/2025 2:16 PM EST 09/07/2025 4:19 PM EST us Jose Martin García MD LAB BLOOD ORDERABLES Final R esult Performing Organization Address [facility]/ZIP Co de Phone Number [facility] [address] [place] [address] * (ABNORMAL) Comprehensive Metabolic Panel, Plasma (09/07/2025 2:16 PM EST) Glucose, Plasma 106(H) 74 - 99 mg/dL 09/07/2025 4:50 PM EST [facility] BUN, Plasma 31(H) 8 - 23 mg/dL 09/07/2025 4:50 PM EST [facility] Creatinine, Plasma 1.68(H) 0.70 - 1.20 mg/dL 09/07/2025 4:50 PM EST [facility] BUN/Creatinine Ratio 18 09/07/2025 4:50 PM EST [facility] Sodium, Plasma 139 136 - 145 mmol/L 09/07/2025 4:50 PM EST [facility] Potassium, Plasma 4.1 3.6 - 4.9 mmol/L 09/07/2025 4:50 PM EST [facility] Chloride, Plasma 102 97 - 107 mmol/L 09/07/2025 4:50 PM EST [facility] CO2, Plasma 26 22 - 29 mmol/L 09/07/2025 4:50 PM EST [facility] Anion Gap 11 6 - 16 mmol/L 09/07/2025 4:50 PM EST [facility] Total Calcium, Plasma 8.7(L) 8.9 - 10.2 mg/dL 09/07/2025 4:50 PM EST [facility] Total Protein 7.2 6.3 - 7.9 g/dL 09/07/2025 4:50 PM EST [facility] Albumin, Plasma 4.1 3.5 - 5.2 g/dL 09/07/2025 4:50 PM EST [facility] AST, Plasma 21 10 - 50 U/L 09/07/2025 4:50 PM EST [facility] ALT, Plasma 17 10 - 50 U/L 09/07/2025 4:50 PM EST [facility] Alkaline Phosphatase, Plasma 80 40 - 115 U/L 09/07/2025 4:50 PM EST [facility] Total Bilirubin, Plasma 0.2 0.2 - 1.1 mg/dL 09/07/2025 4:50 PM EST [facility] eGFRcr 38.8 mL/min/1.7 3m*2 09/07/2025 4:50 PM EST [facility] Comment:Reported eGFRcr in m L/min/1.73m2 is based the CKD-EPI 2020 equation that does not use a race coefficient. Blood Venous blood specimen / Unknown Venipuncture / Unknown 09/07/2025 2:16 PM EST 09/07/2025 4:19 PM EST us Jose Martin García MD LAB BLOOD ORDERABLES Final R esult [facility] [address] [place] [address] * Surgical Pathology Consult (09/05/2025 1:34 PM EST) Case Report Sugical Pathology Consult Case: [id number] Authorizing Provider: Jose Martin García MD Collected: 09/05/20259 Ordering Location: [facility] Received: 09/05/2025 1335 Pathologist: Dulce Bryant MD Specimen: Stomach, [id number] 09/05/2025 3:[address] [facility] Final Diagnosis SMALL INTESTINE, DUODENUM, BIOPSY ([id number]; 08/24/2025): - NO PATHOLOGIC ABNORMALITIES. 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 STOMACH, FUNDUS, BIOPSY ([id number] C; 08/24/2025): - CHRONIC GASTRITIS WITH INTESTINAL METAPLASIA. 09/05/2025 3:52 PM EST [facility] at 1552 EST Comment Per pathology report) Immunohistochemical stains for MMR proteins: retained nuclear immunoreaction for all 4 proteins (MLH-1, MSH-2, MSH-6, and PMS-2) Immunohistochemical stain for Her-2/eugene: negative (score 1+) CLDN18 (43-14A): positive PD-L1 (22C3) Combined Positive Score: 5 09/05/2025 3:[address] [facility] Clinical Information K92.2 - Gastrointestinal hemorrhage, unspecified [ICD-10-CM] 09/05/2025 3:52 PM EST [facility] Gross Description A. [id number] Received along with a corresponding pathology report from [facility] are 11 slides labeled outside case: [id number] collected on 08/24/2025. 09/05/2025 3:52 PM EST [facility] Note: A resident was involved in the service. I attest I examined the relevant preparations for the specimens and confirmed the diagnosis or interpretation. 09/05/2025 3:[address] [facility] Tissue Stomach structure / Unknown 09/05/2025 1:34 PM EST 09/05/2025 1:35 PM EST us Jose Martin García MD LAB PATHOLOGY ORDERABLES Fin al Result [facility] [address] [place] [address] from Last 3 Months Additional Health Concerns Active Problems Noted Date Diagnosed Date Autogenerated Problem 09/08/2025 Insurance [facility] MEDICARE Care Teams Polytechnic Registrar Relationship Specialty Start Date End Date Rosalino Pichardo DO [address] [place] [address] PCP - General 08/02/25
--- OUTSIDE RECORDS SUMMARY | 2025-09-11 11:46 | XMS_ITS | Encounter Summary ---
Author Organization [place] [address] Care Team Providers Care Outer Diameter Technician Name Role Phone Rosalino Pichardo DO Primary Care Provider [phone] Jose Hinds MD Unavailable [phone] Marlo Davison MD Unavailable [phone] Reason for Referral * Interventional Radiology (Routine) - Closed Specialty Diagnoses / Procedures Referred By Contac t Referred To Contact Radiology Diagnoses Lumbosacral spondylosis without myelopathy Procedures IR 2 LEVEL BILATERAL MEDIAL BRANCH BLOCK LUM SAC Vaibhav Martinez MD [address] [place] [address] Phone: tel: fax: Referral ID Status Reason Start Date Expiration Date Visits Re quested Visits Authorized [id number] Closed 12/08/2018 12/08/2019 1 1 Encounter Details Date Type Department Care Team (Late st Contact Info) Description 12/08/2018 E-Visit [facility] [place] [address] [place] [address] Vaibhav Martinez MD [address] [place] [address] Repeat Procedure Social History Tobacco [...] documented as of this encounter Care Teams Outer Diameter Technician Relationship Specialty Start Date End Date Rosalino Pichardo DO [address] [place] [address] PCP - General 07/13/09 Jose Hinds MD [address] [place] [address] Consulting Physician Internal Medicine - Clinical Cardiac Electrophysiology 04/16/17 Marlo Davison MD [address] [place] [id number] Internal Medicine-Cardiovascular Disease 12/21/23 documented as of this encounter
--- OUTSIDE RECORDS SUMMARY | 2025-09-11 11:46 | XMS_ITS | Clinical Summary ---
Author Organization [facility] Address [address] [place] [address] Phone Care Team Providers Care Slab Grinder Name Role Phone Rosalino Pichardo DO Primary Care Provider [phone] Jose Hinds MD Unavailable [phone] Marlo Davison MD Unavailable [phone] Allergies Active Allergy Reactions Criticality Noted Date [...] Take 5,000 Units by mouth daily. Active FA/MV,CA,IRON,WV N/LYCOPENE/LUT (MULTIVITAL ORAL) Take 1 Tab by [...] completed by Erika Beltre RN on 01/22/2024. [facility] [place] - Vaibhav Martinez MD Interventional Pain Protocol: Rakesh report completed (EVERY 3 MONTHS) ( ) Pharmacy: [facility] [place] [facility] [address] [address] Res[address] - [phone] PACEMAKER DEPENDENT [facility] additional info (Transportation, [...] (08/01/2020): Added automatically from request for surgery [id number] Lumbar degenerative disc disease 02/02/2020 Lumbosacral spondylosis [...] (09/17/2017): Added automatically from request for surgery [id number] Combined systolic and diastolic congestive heart failure [...] (09/02/2017): Added automatically from request for surgery [id number] Chest pain 09/01/2017 09/07/2017 Overview (09/05/2017): Added automatically from request for surgery [id number] Chest pain 04/02/2017 04/06/2017 Encounters Date Type Department Care Team Description 06/23/2025 12:30 PM EDT Office Visit [facility] [address] [place] [address] Hunter [...] balloon dilation; Surgeon: Hunter Aguirre MD; Location: [facility] END[facility]COPY; Service: Endoscopy UPPER GASTROINTESTINAL ENDOSCOPY 12/16/2016 N/A ESOPHAGOGASTRODUODENOSCOPY; Surgeon: Hunter Aguirre MD; Location: [facility] END[facility]; Service: Endoscopy PACEMAKER INSERTION 04/02/2017 Left Medtronic, dual chamber pacemaker by Dr. Hinds CORONARY ANGIOPLASTY 09/02/2017 MARY to OM and left circ CATARACT REMOVAL 03/16/2018 Right CATARACT REMOVAL 03/16/2018 Right Right eye CATARACT EXTRACTION WITH PHACOEMULSIFICATION AND INTRAOCULAR LENS; Surgeon: Mauro Guzman MD; Location: [facility]; Service: Ophthalmology Medical devices from [...] HTN (hypertension) Pericarditis ~2017 I have gone [facility] and now exercise on [...] [facility] [employer] Medical Devices Implanted Type Area Retail Associate Device Identifier Shelf Expiration Date Model / Serial / Lot Lead Pacing Implantable Capsurefix Novus 52cm Atrial/Ventric - [id number] Implanted:Qty: 1 on 04/02/2017 by Jose Hinds MD at [facility] Lead [employer]:PACING SYS 5076-52 / [id number] / Lead Pacing Implantable Capsurefix Novus 58cm Atrial/Ventric - [id number] Implanted:Qty: 1 on 04/02/2017 by Jose Hinds MD at [facility] Lead [employer]:PACING SYS 5076-58 / [id number] / Pacemaker Advisa Dual Chamber Mri - [id number] Implanted:Qty: 1 on 04/02/2017 by Jose Hinds MD at [facility] Pacemaker MEDTR[employer]:PACING SYS [id number] / [id number] / Stent Xience Alpine Drug Eluting 3.0mm X 18mm - [id number] Implanted:Qty: 1 on 09/02/2017 by Elizabeth Shore MD at [facility] Explanted:at [facility] (Quantity not on file) [facility]:VASC DEV [id number] / [id number] Stent Xience Alpine Drug Eluting 2.5mm X 15mm - [id number] Implanted:Qty: 1 on 09/02/2017 by Elizabeth Shore MD at [facility] Explanted:at [facility] (Quantity not on file) [facility]:VASC DEV [id number] Lens Intraocular Preloaded 19.0 Diopter - [id number] Implanted:Qty: 1 on 03/16/2018 by Mauro Guzman MD at [facility] Right: Eye [facility]:SURG 07/02/2020 [id number] 0 / [id number] / Insurance MEDICARE PPO MR MEDICARE PPO MR [facility] MEDICARE PPO MR Advance Directives For more information, please contact: [phone] * Full Code (Latest Code Status on File) Date Activated Date Inactivated Comments 09/04/2017 8:23 AM 09/06/2017 5:17 PM * Full Code Date Activated Date Inactivated Comments 04/01/2017 3:19 AM 04/03/2017 3:57 PM * Full Code Date Activated Date Inactivated Comments 04/01/2017 12:23 AM 04/01/2017 3:19 AM Care Teams Slab Grinder Relationship Specialty Start Date End Date Rosalino Pichardo DO [address] [place] [address] PCP - General 07/13/09 Jose Hinds MD [address] [place] [address] [place] [address] Consulting Physician Internal Medicine - Clinical Cardiac Electrophysiology 04/16/17 Marlo Davison MD [address] [place] [id number] Internal Medicine-Cardiovascular Disease 12/21/23
--- OUTSIDE RECORDS SUMMARY | 2025-09-11 11:46 | XMS_ITS | Encounter Summary ---
Author Organization [place] [address] Care Team Providers Care Biological Lab Technician Name Role Phone Rosalino Pichardo DO Primary Care Provider [phone] Jose Hinds MD Unavailable [phone] Marlo Davison MD Unavailable Encounter Details Date Type Department Care Team (Late st Contact Info) Description 10/15/2020 Orders Only [facility] H&[facility] [place] [facility] [address] [place] [address] Marlo Davison MD [address] [place] [address] Social History Tobacco Use Types [...] PM EST) 10/15/2020 3:19 PM EST Narrative [facility] - 10/15/2020 2:49 PM EST Per carelink- 22 minutes in AT/AF since last session. Per Epic, patient is taking Xarelto. See attachments for full report and strips. lgy/rma us Marlo Davison MD [facility] CARDIAC CATH ORDERABLES Final Result [facility] [address] [place], [place] [id number] documented in this encounter Visit Diagnoses Not on filedocumented in this encounter Additional Health Concerns Assessment Noted Time A fall risk assessment has been complete d for the patient 11/10/2019 10:26 AM EST documented as of this encounter Care Teams Biological Lab Technician Relationship Specialty Start Date End Date Rosalino Pichardo DO [address] [place] [address] PCP - General 07/13/09 Jose Hinds MD [address] [place] [address] Consulting Physician Internal Medicine - Clinical Cardiac Electrophysiology 04/16/17 Marlo Davison MD [address] [place] [address] Internal Medicine-Cardiovascular Disease 12/21/23 documented as of this encounter
--- OUTSIDE RECORDS SUMMARY | 2025-09-11 11:46 | XMS_ITS | Encounter Summary ---
Author Organization [place] [address] Care Team Providers Care Donor Services Manager Name Role Phone Rosalino Pichardo DO Primary Care Provider [phone] Jose Hinds MD Unavailable [phone] Marlo Davison MD Unavailable [phone] Encounter Details Date Type Department Care Team (Late st Contact Info) Description 05/26/2025 Results Follow-Up [facility] [address] [place] [phone] Rosalino Pichardo DO [address] [place] [address] LIPID SCREEN, HEPATIC FUNCTION PANEL, BASIC METABOLIC [...] documented as of this encounter Care Teams Donor Services Manager Relationship Specialty Start Date End Date Rosalino Pichardo DO [facility] [place] [address] PCP - General 07/13/09 Jose Hinds MD [address] [place] [address] [place] [address] Consulting Physician Internal Medicine - Clinical Cardiac Electrophysiology 04/16/17 Marlo Davison MD [address] [place] [address] Internal Medicine-Cardiovascular Disease 12/21/23 documented as of this encounter
[2025-09-11 11:57] VITALS: BP 132/69; PULSE 80; RESP 14; TEMP 36.7; O2SAT 96
[2025-09-11] MEDS: SODIUM CHLORIDE 0.9% 10ML FLUSH SYRINGE 10 ML IV (11:57)
[2025-09-11] MEDS: IRON SUCROSE COMPLEX 200 MG in 0.9 % SODIUM CHLORIDE 100 ML 220 MG IV (11:57)
[2025-09-11 12:35] VITALS: BP 125/70; PULSE 60; RESP 14; O2SAT 97
== END 2025-09-11 23:59 | disposition home or self-care (01) ==
LOC: INF 11:44
PROVIDERS: PCP Family Medicine; Visit Provider Internal Medicine Medical Oncology
DX: D64.89 Other specified anemias (principal)
CPT/HCPCS: 96365; J1756

== ENCOUNTER 2025-09-13 10:53 | Outpatient (CLI) | payer MEDICARE, SELFPAY ==
--- OUTSIDE RECORDS SUMMARY | 2020-06-29 19:00 | XMS_ITS | Continuity of Care Document ---
Author Organization [facility] Address [address] [place] [address] Phone Care Team Providers Care Public Relations Specialist Name Role Phone Reuben Hicks MD Unavailable Unavailable Procedures Procedure Date CRITICAL CARE, FIRST HOUR CRITICAL CARE, ADDL 30 MIN Advance Directives Directive Yes / No Effective Date File Name No Information Encounters Encounter Description Practice Location Reason(s) For Visit Diagnoses Date Provider CRITICAL CARE, FIRST HOUR [facility], [address] [facility], [place], [id number], [place] tel:[phone] [address] [place] [address] No Information 2019 Kurt Reuben. [address] [place] [address] [place], [id number], [place]. tel:[phone] [facility], [address] [place], [place], [id number], [place] tel:[phone] [address] [place] [address] No Information 2019 Kurt Reuben. [address] [place] [address] [place], [id number], [place]. tel:[phone] [facility], [address] [facility] [place], [id number], [place] tel:[phone] [address] [place] [address] No Information 2019 Mendel Cummins. [address] [place] [address] [place], [id number], [place]. tel:[phone] [facility], [address] [facility] [place], [id number], [place] tel:[phone] [address] [place] [address] No Information 2019 Mendel Cummins. [address] [place] [address], [place], [id number], [place]. tel:[phone] Family History Family Member Type Diagnosis Age At Onset No Information Payers Payer name Insurance type Covered democrat ID Abbie graff(s) [facility] [id number] Social History Type Description Quantity Date Captured Comments Sex Male Smoking Status No Information Chief Complaint And Reason For Visit No Information History Of Present Illness Encounter Date Complaint History Of Prese nt Illness No Information Instructions Date Instruction Additional Infor mation No Information Assessments Type Assessment Date No Information
--- OUTSIDE RECORDS SUMMARY | 2025-09-07 13:00 | XMS_ITS | Encounter Summary ---
Author Organization [facility] Address [address] [place] [address] Care Team Providers Care Highway Commissioner Name Role Phone Rosalino Pichardo DO Primary Care Provider [phone] Reason for Referral * Imaging (Routine) - Authorized Specialty Diagnoses / Procedures [facility] To Contact Gastroenterology Diagnoses Malignant neoplasm of stomach, unspecified location (CMS/HCC) Procedures EUS (Upper) Jose Martin García MD [address] [address] Phone: tel: fax: Referral ID Status Reason Start Date Expiration Date Visits Requested Visits Authorized [id number] Authorized Specialty Services Required 09/07/2025 03/09/2027 1 1 * Imaging (Routine) - Closed Specialty Diagnoses / Procedures Referred By Contac t Referred To Contact Radiology Diagnoses Malignant neoplasm of stomach, unspecified location (CMS/HCC) Procedures CT Abdomen Pelvis w IV Contrast Jose Martin García MD [address] [address] Phone: tel: fax: Referral ID Status Reason Start Date Expiration Date Visits Re quested Visits Authorized [id number] Closed 09/07/2025 03/09/2027 1 1 * Imaging (Routine) - Closed Specialty Diagnoses / Procedures Referred By Contac t Referred To Contact Radiology Diagnoses Malignant neoplasm of stomach, unspecified location (CMS/HCC) Procedures CT Chest w IV Contrast Jose Martin García MD [address] [address] Phone: tel: fax: Referral ID Status Reason Start Date Expiration Date Visits Re quested Visits Authorized [id number] Closed 09/07/2025 03/09/2027 1 1 Reason for Visit * Reason Comments Consult Gastric cancer * Consultation (Routine) - Closed Specialty Diagnoses / Procedures Referred By Contact Referred To Contact Surgical Oncology / Hematology and Oncology Diagnoses Gastric cancer (CMS/HCC) Alfonso Wilde MD [address] [place] [address] [place] [address] Phone: tel:[phone] fax:[phone] [facility] [address] [place] [phone] Phone: tel: fax: Referral ID Status Reason Start Date Expiration Date V isits Requested Visits Authorized [id number] Closed Specialty Services Required 09/01/2025 03/03/2027 1 1 Encounter Details Date Type Department Care Team (Latest Contact Info) Description 09/07/2025 1:00 PM EST Office Visit [facility] [address] [place] [phone] Jose Martin García MD [address] [address] Malignant neoplasm of stomach, unspecified [...] biopsy confirmed invasive gastric adenocarcinoma. MSI intact, EAQ1kgj negative, CLDN18 positive, PDL1 score 5. Noted [...] heart failure diagnosis. Denies known history of AK. Denies known renal disease but has elevated Cr on recent labs. He has history of skin cancers but no other personal history of cancer. Denies prior surgeries. Denies smoking, alcohol or drug use. Denies family history of cancer. He lives with his in [place], has 2 children, 5 grandchildren and 1 [...] results for input(s): CA199 in the last 31192 hours. Pathology report reviewed as above Radiographics/Diagnostics: [...] Event [facility] [address] [place] [address] Pamela Buckley, HOSPITALITY RECRUITER [address] [place] [address] 09/14/2025 2:00 PM EST Appointment [facility] [address] [place] [address] Rene Mejia MD [address] [place] [address] 09/19/2025 10:10 AM EST Office Visit [facility] [address] [place] [address] Jose Martin García MD [address] [address] Scheduled Orders Name Type Priority Associated Diagnoses Orde r Schedule EUS (Upper) Endoscopy Routine Malignant neoplasm of stomach, unspecified location (CMS/HCC) Expected: 09/07/2025, Expires: 09/07/2026 documented as of this encounter Results * CT Abdomen Pelvis w IV Contrast (09/11/2025 4:06 PM EST) Anatomical Region Laterality Modality Abdomen, Pelvis Computed Tomogra phy Impressions 09/11/2025 8:26 PM EST Chest: No thoracic metastatic disease. Abdomen/Pelvis: No definite primary mass is seen. Questionable small focus of abnormality which is slightly different from the background mucosa the proximal stomach could represent the abnormality seen on endoscopy. No extramural extension. No perigastric adenopathy. No metastatic disease. CRITICAL RESULT: No. COMMUNICATION: Per this written report. Drafted by Iveth Hooper MD on 09/11/2025 8:08 PM Final report signed by Iveth Hooper MD on 09/11/2025 8:26 PM Narrative 09/11/2025 8:26 PM EST CLINICAL INDICATION: gastric cancer Patient underwent EGD after found to have significant new anemia after ED visit. 11-12mm gastric lesion was identified in fundus along greater curvature (4cm from hiatus) and biopsy confirmed invasive gastric adenocarcinoma. MSI intact, [id number] negative, CLDN18 positive, PDL1 score 5. Noted to also have 4cm hiatal hernia and distal Schatzki's ring which was dilated. Pathology reviewed here showing invasive moderate to poorly differentiated adenocarcinoma intestinal type, background biopsy with chronic gastritis and intestinal metaplasia. TECHNIQUE: Multiple axial CT images were obtained from thoracic inlet through pubic symphysis following administration of IV contrast, Omnipaque 300, 100 mL. Reformatted images in the coronal and sagittal planes were generated from the axial data set to facilitate diagnostic accuracy. Total DLP (Dose-Length Product): 1202.81 mGy.cm (accession [id number]), 1202.81 mGy.cm (accession [id number]) Please note: The reported value represents the total of one or more individual components during the CT acquisition on this date and at this time, and as such, the same value may appear in more than one CT report depending on the interpreting/reporting physicians. COMPARISON: None. FINDINGS: Chest: Lymph Nodes and Mediastinum: No lymphadenopathy by CT size criteria. No mediastinal mass lesions. No suspicious thyroid findings. Cardiovascular: Extensive coronary arterial calcification. 3-lead transvenous CIED coronary arterial calcification. The heart is normal in caliber. No pericardial effusion. Thoracic great vessels are patent. Lungs and Pleura: No suspicious lung nodules to suggest metastatic disease. Small bilateral pleural effusions and adjacent atelectasis. Bilateral apical scarring. Musculoskeletal and Body Wall: No clearly aggressive bone lesions. Abdomen/Pelvis: Solid Abdominal Organs: Unremarkable liver and collapsed gallbladder. No biliary obstruction. Unremarkable spleen. No suspicious pancreatic findings. No suspicious adrenal findings. No suspicious renal mass lesions. No hydronephrosis. GI Tract/Mesentery/Peritoneum: There is a mixed sliding and paraesophageal hiatal hernia containing the proximal cardia measuring 4.6 cm in craniocaudal length. No definite mass is identified on imaging. Questionable area of somewhat homogeneous focus of hyper enhancement (different from the adjacent wall) is identified within 4 cm of the hiatus along the greater curvature in the expected region of the fundus (seen only on image 83 of series 2 corresponding to image 90 of series 13). This could be artifactual due to the collapsed stomach at this level due to the hiatal hernia. No suspicious abnormality identified within the herniated intrathoracic portion of the stomach. No extramural or significant polypoidal intraluminal component is identified. There are no perigastric lymph nodes. The large and small bowel appear normal in caliber. No evidence of inflammatory change. No suspicious peritoneal/mesenteric findings. Pelvic Viscera: No suspicious pelvic mass lesions. Prostatomegaly projecting into the bladder base. Unremarkable symmetric seminal vesicles in underdistended urinary bladder. Lymph Nodes/Vasculature: No lymphadenopathy by CT size criteria. The aortoiliac vasculature is patent and normal in caliber. Free Fluid: No ascites Musculoskeletal and Body Wall: No aggressive or suspicious findings. Left direct inguinal hernia containing a short segment of sigmoid colon; no obstruction. Procedure Note Iveth Hooper MD - 09/11/2025 CLINICAL INDICATION: gastric cancer Patient underwent EGD after found to have significant new anemia after EDvisit. 11-12mm gastric lesion was identified in fundus along greatercurvature (4cm from hiatus) and biopsy confirmed invasive gastricadenocarcinoma. MSI intact, WFO0rfi negative, CLDN18 positive, PDL1 score5. Noted to also have 4cm hiatal hernia and distal Schatzki's ring whichwas dilated. Pathology reviewed here showing invasive moderate to poorlydifferentiated adenocarcinoma intestinal type, background biopsy withchronic gastritis and intestinal metaplasia. TECHNIQUE: Multiple axial CT images were obtained from thoracic inlet through pubicsymphysis following administration of IV contrast, Omnipaque 300, 100 mL.Reformatted images in the coronal and sagittal planes were generated fromthe axial data set to facilitate diagnostic accuracy. Total DLP (Dose-Length Product): 1202.81 mGy.cm (accession [id number]),1202.81 mGy.cm (accession [id number]) Please note: The reported valuerepresents the total of one or more individual components during the CTacquisition on this date and at this time, and as such, the same value mayappear in more than one CT report depending on the interpreting/reportingphysicians. COMPARISON: None. FINDINGS: Chest: Lymph Nodes and Mediastinum: No lymphadenopathy by CT size criteria. Nomediastinal mass lesions. No suspicious thyroid findings. Cardiovascular: Extensive coronary arterial calcification. 3-leadtransvenous CIED coronary arterial calcification. The heart is normal incaliber. No pericardial effusion. Thoracic great vessels are patent. Lungs and Pleura: No suspicious lung nodules to suggest metastaticdisease. Small bilateral pleural effusions and adjacent atelectasis.Bilateral apical scarring. Musculoskeletal and Body Wall: No clearly aggressive bone lesions. Abdomen/Pelvis: Solid Abdominal Organs: Unremarkable liver and collapsed gallbladder. Nobiliary obstruction. Unremarkable spleen. No suspicious pancreaticfindings. No suspicious adrenal findings. No suspicious renal masslesions. No hydronephrosis. GI Tract/Mesentery/Peritoneum: There is a mixed sliding and paraesophagealhiatal hernia containing the proximal cardia measuring 4.6 cm incraniocaudal length. No definite mass is identified on imaging.Questionable area of somewhat homogeneous focus of hyper enhancement(different from the adjacent wall) is identified within 4 cm of the hiatusalong the greater curvature in the expected region of the fundus (seenonly on image 83 of series 2 corresponding to image 90 of series 13). Thiscould be artifactual due to the collapsed stomach at this level due to thehiatal hernia. No suspicious abnormality identified within the herniatedintrathoracic portion of the stomach. No extramural or significantpolypoidal intraluminal component is identified. There are no perigastriclymph nodes. The large and small bowel appear normal in caliber. No evidence ofinflammatory change. No suspicious peritoneal/mesenteric findings. Pelvic Viscera: No suspicious pelvic mass lesions. Prostatomegalyprojecting into the bladder base. Unremarkable symmetric seminal vesiclesin underdistended urinary bladder. Lymph Nodes/Vasculature: No lymphadenopathy by CT size criteria. Theaortoiliac vasculature is patent and normal in caliber. Free Fluid: No ascites Musculoskeletal and Body Wall: No aggressive or suspicious findings. Leftdirect inguinal hernia containing a short segment of sigmoid colon; noobstruction. IMPRESSION: Chest: No thoracic metastatic disease. Abdomen/Pelvis: No definite primary mass is seen. Questionable small focusof abnormality which is slightly different from the background mucosa theproximal stomach could represent the abnormality seen on endoscopy. Noextramural extension. No perigastric adenopathy. No metastatic disease. CRITICAL RESULT: No. COMMUNICATION: Per this written report. Drafted by Iveth Hooper MD on 09/11/2025 8:08 PM Final report signed by Iveth Hooper MD on 09/11/2025 8:26 PM us Jose Martin García MD IMG CT PROCEDURES Final Resu lt * CT Chest w IV Contrast (09/11/2025 4:06 PM EST) Anatomical Region Laterality Modality Chest Computed Tomogra phy Impressions 09/11/2025 8:26 PM EST Chest: No thoracic metastatic disease. Abdomen/Pelvis: No definite primary mass is seen. Questionable small focus of abnormality which is slightly different from the background mucosa the proximal stomach could represent the abnormality seen on endoscopy. No extramural extension. No perigastric adenopathy. No metastatic disease. CRITICAL RESULT: No. COMMUNICATION: Per this written report. Drafted by Iveth Hooper MD on 09/11/2025 8:08 PM Final report signed by Iveth Hooper MD on 09/11/2025 8:26 PM Narrative 09/11/2025 8:26 PM EST CLINICAL INDICATION: gastric cancer Patient underwent EGD after found to have significant new anemia after ED visit. 11-12mm gastric lesion was identified in fundus along greater curvature (4cm from hiatus) and biopsy confirmed invasive gastric adenocarcinoma. MSI intact, LYT0ras negative, CLDN18 positive, PDL1 score 5. Noted to also have 4cm hiatal hernia and distal Schatzki's ring which was dilated. Pathology reviewed here showing invasive moderate to poorly differentiated adenocarcinoma intestinal type, background biopsy with chronic gastritis and intestinal metaplasia. TECHNIQUE: Multiple axial CT images were obtained from thoracic inlet through pubic symphysis following administration of IV contrast, Omnipaque 300, 100 mL. Reformatted images in the coronal and sagittal planes were generated from the axial data set to facilitate diagnostic accuracy. Total DLP (Dose-Length Product): 1202.81 mGy.cm (accession [id number]), 1202.81 mGy.cm (accession [id number]) Please note: The reported value represents the total of one or more individual components during the CT acquisition on this date and at this time, and as such, the same value may appear in more than one CT report depending on the interpreting/reporting physicians. COMPARISON: None. FINDINGS: Chest: Lymph Nodes and Mediastinum: No lymphadenopathy by CT size criteria. No mediastinal mass lesions. No suspicious thyroid findings. Cardiovascular: Extensive coronary arterial calcification. 3-lead transvenous CIED coronary arterial calcification. The heart is normal in caliber. No pericardial effusion. Thoracic great vessels are patent. Lungs and Pleura: No suspicious lung nodules to suggest metastatic disease. Small bilateral pleural effusions and adjacent atelectasis. Bilateral apical scarring. Musculoskeletal and Body Wall: No clearly aggressive bone lesions. Abdomen/Pelvis: Solid Abdominal Organs: Unremarkable liver and collapsed gallbladder. No biliary obstruction. Unremarkable spleen. No suspicious pancreatic findings. No suspicious adrenal findings. No suspicious renal mass lesions. No hydronephrosis. GI Tract/Mesentery/Peritoneum: There is a mixed sliding and paraesophageal hiatal hernia containing the proximal cardia measuring 4.6 cm in craniocaudal length. No definite mass is identified on imaging. Questionable area of somewhat homogeneous focus of hyper enhancement (different from the adjacent wall) is identified within 4 cm of the hiatus along the greater curvature in the expected region of the fundus (seen only on image 83 of series 2 corresponding to image 90 of series 13). This could be artifactual due to the collapsed stomach at this level due to the hiatal hernia. No suspicious abnormality identified within the herniated intrathoracic portion of the stomach. No extramural or significant polypoidal intraluminal component is identified. There are no perigastric lymph nodes. The large and small bowel appear normal in caliber. No evidence of inflammatory change. No suspicious peritoneal/mesenteric findings. Pelvic Viscera: No suspicious pelvic mass lesions. Prostatomegaly projecting into the bladder base. Unremarkable symmetric seminal vesicles in underdistended urinary bladder. Lymph Nodes/Vasculature: No lymphadenopathy by CT size criteria. The aortoiliac vasculature is patent and normal in caliber. Free Fluid: No ascites Musculoskeletal and Body Wall: No aggressive or suspicious findings. Left direct inguinal hernia containing a short segment of sigmoid colon; no obstruction. Procedure Note Iveth Hooper MD - 09/11/2025 CLINICAL INDICATION: gastric cancer Patient underwent EGD after found to have significant new anemia after EDvisit. 11-12mm gastric lesion was identified in fundus along greatercurvature (4cm from hiatus) and biopsy confirmed invasive gastricadenocarcinoma. MSI intact, BBY1mkk negative, CLDN18 positive, PDL1 score5. Noted to also have 4cm hiatal hernia and distal Schatzki's ring whichwas dilated. Pathology reviewed here showing invasive moderate to poorlydifferentiated adenocarcinoma intestinal type, background biopsy withchronic gastritis and intestinal metaplasia. TECHNIQUE: Multiple axial CT images were obtained from thoracic inlet through pubicsymphysis following administration of IV contrast, Omnipaque 300, 100 mL.Reformatted images in the coronal and sagittal planes were generated fromthe axial data set to facilitate diagnostic accuracy. Total DLP (Dose-Length Product): 1202.81 mGy.cm (accession [id number]),1202.81 mGy.cm (accession [id number]) Please note: The reported valuerepresents the total of one or more individual components during the CTacquisition on this date and at this time, and as such, the same value mayappear in more than one CT report depending on the interpreting/reportingphysicians. COMPARISON: None. FINDINGS: Chest: Lymph Nodes and Mediastinum: No lymphadenopathy by CT size criteria. Nomediastinal mass lesions. No suspicious thyroid findings. Cardiovascular: Extensive coronary arterial calcification. 3-leadtransvenous CIED coronary arterial calcification. The heart is normal incaliber. No pericardial effusion. Thoracic great vessels are patent. Lungs and Pleura: No suspicious lung nodules to suggest metastaticdisease. Small bilateral pleural effusions and adjacent atelectasis.Bilateral apical scarring. Musculoskeletal and Body Wall: No clearly aggressive bone lesions. Abdomen/Pelvis: Solid Abdominal Organs: Unremarkable liver and collapsed gallbladder. Nobiliary obstruction. Unremarkable spleen. No suspicious pancreaticfindings. No suspicious adrenal findings. No suspicious renal masslesions. No hydronephrosis. GI Tract/Mesentery/Peritoneum: There is a mixed sliding and paraesophagealhiatal hernia containing the proximal cardia measuring 4.6 cm incraniocaudal length. No definite mass is identified on imaging.Questionable area of somewhat homogeneous focus of hyper enhancement(different from the adjacent wall) is identified within 4 cm of the hiatusalong the greater curvature in the expected region of the fundus (seenonly on image 83 of series 2 corresponding to image 90 of series 13). Thiscould be artifactual due to the collapsed stomach at this level due to thehiatal hernia. No suspicious abnormality identified within the herniatedintrathoracic portion of the stomach. No extramural or significantpolypoidal intraluminal component is identified. There are no perigastriclymph nodes. The large and small bowel appear normal in caliber. No evidence ofinflammatory change. No suspicious peritoneal/mesenteric findings. Pelvic Viscera: No suspicious pelvic mass lesions. Prostatomegalyprojecting into the bladder base. Unremarkable symmetric seminal vesiclesin underdistended urinary bladder. Lymph Nodes/Vasculature: No lymphadenopathy by CT size criteria. Theaortoiliac vasculature is patent and normal in caliber. Free Fluid: No ascites Musculoskeletal and Body Wall: No aggressive or suspicious findings. Leftdirect inguinal hernia containing a short segment of sigmoid colon; noobstruction. IMPRESSION: Chest: No thoracic metastatic disease. Abdomen/Pelvis: No definite primary mass is seen. Questionable small focusof abnormality which is slightly different from the background mucosa theproximal stomach could represent the abnormality seen on endoscopy. Noextramural extension. No perigastric adenopathy. No metastatic disease. CRITICAL RESULT: No. COMMUNICATION: Per this written report. Drafted by Iveth Hooper MD on 09/11/2025 8:08 PM Final report signed by Iveth Hooper MD on 09/11/2025 8:26 PM Jose Martin García MD IMG CT PROCEDURES Final Resu lt * (ABNORMAL) Prothrombin Time/INR (09/07/2025 2:16 PM EST) Prothrombin Time 25.2(H) 12.0 - 14.3 sec LAB COAGULATION METHOD 09/07/2025 4:[address] [facility] INR 2.2(H) 0.9 - 1.1 LAB COAGULATION METHOD 09/07/2025 4:[address] [facility] Blood Venous blood specimen / Unknown Venipuncture / Unknown 09/07/2025 2:16 PM EST 09/07/2025 4:[address] [facility] - 09/07/2025 4:36 PM EST OPTIMAL INR RANGES FOR PATIENT ON ORAL ANTICOAGULANT THERAPY Prevention of venous thromboembolism INR 2.0 to 3.0 In patients with heart disease: Atrial fibrillation INR 2.0 to 3.0 Valvular heart disease INR 2.0 to 3.0 Tissue heart valves INR 2.0 to 3.0 Mechanical prosthetic valves INR 2.5 to 3.5 Prevention of recurrent AK INR 2.5 to 3.5 Jose Martin García MD LAB BLOOD ORDERABLES Final R esult [facility] [address] [place] [address] * (ABNORMAL) APTT (09/07/2025 2:16 PM EST) aPTT 40(H) 25 - 35 sec LAB COAGULATION METHOD 09/07/2025 4:[address] [facility] Blood Venous blood specimen / Unknown Venipuncture / Unknown 09/07/2025 2:16 PM EST 09/07/2025 4:19 PM EST Jose Martin García MD LAB BLOOD ORDERABLES Final R esult [facility] [address] [place] [address] * Prealbumin, Plasma (09/07/2025 2:16 PM EST) Pathologist [facility] Prealbumin, Plasma 20.1 20.0 - 41.0 mg/dL 09/07/2025 4:[address] [facility] Blood Venous blood specimen / Unknown Venipuncture / Unknown 09/07/2025 2:16 PM EST 09/07/2025 4:19 PM EST Jose Martin García MD LAB BLOOD ORDERABLES Final R esult [facility] [address] [place] [address] * (ABNORMAL) Comprehensive Metabolic Panel, Plasma (09/07/2025 2:16 PM EST) Glucose, Plasma 106(H) 74 - 99 mg/dL 09/07/2025 4:[address] [facility] BUN, Plasma 31(H) 8 - 23 mg/dL 09/07/2025 4:[address] [facility] Creatinine, Plasma 1.68(H) 0.70 - 1.20 mg/dL 09/07/2025 4:[address] [facility] BUN/Creatinine Ratio 18 09/07/2025 4:[address] [facility] Sodium, Plasma 139 136 - 145 mmol/L 09/07/2025 4:[address] [facility] Potassium, Plasma 4.1 3.6 - 4.9 mmol/L 09/07/2025 4:[address] [facility] Chloride, Plasma 102 97 - 107 mmol/L 09/07/2025 4:[address] [facility] CO2, Plasma 26 22 - 29 mmol/L 09/07/2025 4:[address] [facility] Anion Gap 11 6 - 16 mmol/L 09/07/2025 4:[address] [facility] Total Calcium, Plasma 8.7(L) 8.9 - 10.2 mg/dL 09/07/2025 4:[address] [facility] Total Protein 7.2 6.3 - 7.9 g/dL 09/07/2025 4:[address] [facility] Albumin, Plasma 4.1 3.5 - 5.2 g/dL 09/07/2025 4:[address] [facility] AST, Plasma 21 10 - 50 U/L 09/07/2025 4:[address] [facility] ALT, Plasma 17 10 - 50 U/L 09/07/2025 4:[address] [facility] Alkaline Phosphatase, Plasma 80 40 - 115 U/L 09/07/2025 4:[address] [facility] Total Bilirubin, Plasma 0.2 0.2 - 1.1 mg/dL 09/07/2025 4:[address] [facility] eGFRcr 38.8 mL/min/1.7 3m*2 09/07/2025 4:[address] [facility] Comment:Reported eGFRcr in m L/min/1.73m2 is based the CKD-EPI 2020 equation that does not use a race coefficient. Blood Venous blood specimen / Unknown Venipuncture / Unknown 09/07/2025 2:16 PM EST 09/07/2025 4:19 PM EST us Jose Martin García MD LAB BLOOD ORDERABLES Final R esult [facility] [address] [place] [address] * (ABNORMAL) CBC and Differential (09/07/2025 2:16 PM EST) WBC Count 8.81 3.70 - 10.30 10*3/uL LAB HEMATOLOGY METHOD 09/07/2025 4:35 PM [facility] RBC Count 2.61(L) 4.60 - 6.10 10*6/uL LAB HEMATOLOGY METHOD 09/07/2025 4:35 PM [facility] HGB 6.6(L) 13.7 - 17.5 g/dL LAB HEMATOLOGY METHOD 09/07/2025 4:35 PM [facility] HCT 22.6(L) 40.0 - 51.0 % LAB HEMATOLOGY METHOD 09/07/2025 4:35 PM [facility] Platelet Count 136(L) 155 - 369 10*3/uL LAB HEMATOLOGY METHOD 09/07/2025 4:35 PM [facility] MCV 87 79 - 98 fL LAB HEMATOLOGY METHOD 09/07/2025 4:35 PM [facility] MCH 25.3(L) 26.0 - 32.0 pg LAB HEMATOLOGY METHOD 09/07/2025 4:35 PM [facility] MCHC 29.2(L) 30.7 - 35.5 g/dL LAB HEMATOLOGY METHOD 09/07/2025 4:35 PM [facility] RDW 15.6(H) 11.5 - 14.5 % LAB HEMATOLOGY METHOD 09/07/2025 4:35 PM [facility] MPV 12.3 8.8 - 12.5 fL LAB HEMATOLOGY METHOD 09/07/2025 4:35 PM [facility] nRBC 1.2(H) <=0.0 per 100 WBCs LAB HEMATOLOGY METHOD 09/07/2025 4:35 PM [facility] Differential Type Automated LAB HEMATOLOGY METHOD 09/07/2025 4:35 PM [facility] Neutrophils % 64 % LAB HEMATOLOGY METHOD 09/07/2025 4:35 PM [facility] Lymphocytes % 21 % LAB HEMATOLOGY METHOD 09/07/2025 4:35 PM [facility] Monocytes % 11 % LAB HEMATOLOGY METHOD 09/07/2025 4:35 PM [facility] Eosinophils % 2 % LAB HEMATOLOGY METHOD 09/07/2025 4:35 PM [facility] Basophils % 1 % LAB HEMATOLOGY METHOD 09/07/2025 4:[address] [facility] Immature Granulocytes % 1 % LAB HEMATOLOGY METHOD 09/07/2025 4:[address] [facility] Neutrophils Absolute 5.70 1.60 - 6.10 10*3/uL LAB HEMATOLOGY METHOD 09/07/2025 4:[address] [facility] Lymphocytes Absolute 1.82 1.20 - 3.90 10*3/uL LAB HEMATOLOGY METHOD 09/07/2025 4:[address] [facility] Monocytes Absolute 0.94(H) 0.30 - 0.90 10*3/uL LAB HEMATOLOGY METHOD 09/07/2025 4:[address] [facility] Eosinophils Absolute 0.19 0.00 - 0.50 10*3/uL LAB HEMATOLOGY METHOD 09/07/2025 4:[address] [facility] Basophils Absolute 0.05 0.00 - 0.10 10*3/uL LAB HEMATOLOGY METHOD 09/07/2025 4:[address] [facility] Immature Granulocytes Absolute 0.11(H) 0.00 - 0.06 10*3/uL LAB HEMATOLOGY METHOD 09/07/2025 4:[address] [facility] Blood Venous blood specimen / Unknown Venipuncture / Unknown 09/07/2025 2:16 PM EST 09/07/2025 4:[address] [facility] - 09/07/2025 4:35 PM EST Therapeutic decision making should be based on absolute values, rather than percentages. us Jose Martin García MD LAB BLOOD ORDERABLES Final R esult [facility] [address] [place] [address] documented in this encounter Visit Diagnoses Diagnosis Malignant neoplasm of stomach, unspecified location (CMS/HCC)- Primary Malignant neoplasm of stomach, unspecified location (CMS/HCC) documented in this encounter Additional Health Concerns Assessment Noted Time A fall risk assessment has been complete d for the patient 09/07/2025 1:35 PM EST A Body Mass Index follow-up plan has been documented for the patient 09/07/2025 3:02 PM EST documented as of this encounter Care Teams Highway Commissioner Relationship Specialty Start Date End Date Marino Rosalino KDO [address] [place] [address] PCP - General 08/02/25 documented as of this encounter
--- OUTSIDE RECORDS SUMMARY | 2025-09-08 12:30 | XMS_ITS | Encounter Summary ---
Author Organization Healthcare Address [address] [place] [address] Care Team Providers Care Log Sorting Supervisor Name Role Phone Rosalino Pichardo DO Primary Care Provider [phone] Encounter Details Date Type Department Care Team (Late st Contact Info) Description 09/08/2025 12:30 PM EST Pre-Admission Testing [place] [facility] [address] [place] [address] Anesthesia Record Procedure Summary Procedure Name Responsible Anesthesiologist Anesthesia Start Time Anesthesia Stop Time EUS (UPPER) Events No events on file. Meds * Agents No agents on file. * Blood No blood administrations on file. Lines, Drains, and Airways No LDAs on file. documented in this encounter Social History Tobacco Use Types Packs/Day Years Used Date Smoking Tobacco: Former Cigarettes Smokeless Tobacco: Never Tobacco Cessation:Counseling Given: Not Answered Comments:Quit smoking 1970 Alcohol Use Standard Drinks/Week Comments Yes 1 (1 standard drink = 0.6 oz pur e alcohol) 1 payal every few weeks Sex and Gender Information Value Date Recorded Sex Assigned at Not on file Legal Sex Male 10:03 AM EDT Gender Identity Not on file Sexual Orientation Not on file documented as of this encounter Last Filed Vital Signs Vital Sign Reading Time Taken Comments Blood Pressure - - Pulse - - Temperature - - Respiratory Rate - - Oxygen Saturation - - Inhaled Oxygen Concentration - - Weight 77.1 kg (170 lb) 09/08/2025 2:42 PM EST Height - - Body Mass Index 22.43 09/07/2025 1:31 PM EST documented in this encounter Miscellaneous Notes * PAT Evaluation Note - Pamela Buckley, ABDELRAHMAN - 09/08/2025 12:30 PM EST HPI Hunter Nayak is a 89 y.o. 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 PMH CAD s/p PCI (last stent 10/2024, Complete HB, Cardiomyopathy s/p pacemaker/ICD, A fib, ? CKD, and newly dx gastric cancer. Gastirc mass identified on EGD during anemia work-up. Hgb baseline reported ~ 13. Hgb 7 on 07/24/25 and 6.7 on 08/23/25. Has received 2 iron infusions. Scheduled for iron infusions x 3 next week. Has NOT received blood transfusion. Past Medical History[1] Family History[2] Social History[3] Surgical History[4] Allergies[5] MEDICATIONS: Current Medications[6] ROS Anesthesia: Date of last anesthetic: EGD at [facility] 08/2025. Tolerated well Does not have a history of anesthetic complications, malignant hyperthermia, obstructive sleep apnea and PONV. Cardiovascular: angina, atrial fibrillation, CAD (Hx of PCI. last stents 10/2024. Takes Plavix. Follows with Dr. Mario [facility]), cardiomyopathy, dyspnea (complete heart block- lutherker depnedent. A fib), hyperlipidemia, pacemaker (S/P Medtronic dual chamber pacemaker implant 04/02/2017. 10/2024. Upgraded to ICD with defibrillator) and past [place] (2016). Does not have CHF, murmur or syncope. hypertension: Patient has chest pain (NTG x 2 in past 2 weeks. Last saw Cardiogist 7-10 days ago. On BB, Statin,Nitrates, ARB). Cardio additional comments: Exercise Tolerance: [place]. Uses [employer], uses weed lauren. Sleep in regular bed, 1 pillow.. Respiratory: Does not have home oxygen. Patient has dyspnea (complete heart block- oacemaker depnedent. A fib).no asthma: no COPD: Has not had an upper respiratory infection in last 30 days. Has not had bronchitis in the last 30 days, pneumonia in the last 30 days or COVID in the last 30 days. HEENT: missing teeth (upper denture).Does not have difficulty swallowing, chipped teeth or loose teeth.hearing loss (bilateral aids). Neurological: no seizures: Did not have a cerebrovascular accident.Does not have TIA. Musculoskeletal: Does not have cervical spine limited mobility. [facility]/Sk/Inte additional comments: Skin cancers Gastrointestinal: Does not have GERD.GI malignancy (gastric cancer recently dx during anemia work- up). Does not have cirrhosis or hepatitis. Genitourinary: Does not have chronic renal disease.Does not have renal disease. Hematological/Lymphatic: anemia (receiving iron infusions. Has not received blood transfusion.). History of no DVT. History of no pulmonary embolism. Not in a hypercoagulable state. no history of chemotherapy no history of radiation Does not have MRSA or tuberculosis. Hem/Lymph ROS additional comments: Per , Hgb 6.2 10-14 days ago. Hgb 6.6 on 09/07/25 preop. Plavix for CAD/stents, xarelto for a fib Endocrine/Metabolic: does not have diabetes mellitus. Does not have thyroid disorder. More recently had [facility] 10/2024 with PCI and pacemaker upgraded with ICD 10/2024. Records requested. Now follows with Dr. Mario, [place] ([facility]) 10/26/23 [facility] Dist LM lesion is 50% stenosed. Dist LAD lesion is 80% stenosed. 2nd Mrg lesion is 70% stenosed. Long segment severe disease of heavily calcified distal LAD. Significant distal left main disease. Moderate LV dysfunction. Coronary Findings Diagnostic Dominance: Right Left Main: Dist LM lesion is 50% stenosed. The lesion is calcified and eccentric. The lesion is calcified. Left Anterior Descending: Dist LAD lesion is 80% stenosed. The lesion is calcified. The lesion is severely calcified. Second Obtuse Marginal Branch: 2nd Mrg lesion is 70% stenosed. The lesion is bifurcated. Right Coronary Artery: The vessel exhibits minimal luminal irregularities. Intervention No interventions have been documented. Treated medically Left Ventricle The ejection fraction is 35-40% by visual estimate. Lab Results Component Value Date WBC 8.81 09/07/2025 HGB 6.6 (L) 09/07/2025 HCT 22.6 (L) 09/07/2025 MCV 87 09/07/2025 PLT 136 (L) 09/07/2025 Lab Results Component Value Date GLUCOSE 106 (H) 09/07/2025 BUN 31 (H) 09/07/2025 CREATININE 1.68 (H) 09/07/2025 BCR 18 09/07/2025 NA 139 09/07/2025 K 4.1 09/07/2025 CL 102 09/07/2025 CO2 26 09/07/2025 ALBUMIN 4.1 09/07/2025 ALKPHOS 80 09/07/2025 BILITOT 0.2 09/07/2025 No results found for: HGBA1C Lab Results Component Value Date INR 2.2 (H) 09/07/2025 Visit Vitals Smoking Status Former Physical Exam Anesthesia Plan Pamela Buckley APRN [1] Past Medical History: Diagnosis Date Heart problem [2] Family History Problem Relation Name Age of Onset Heart Problem Mother Heart Problem Brother [3] Social History Tobacco Use Smoking status: Former Types: Cigarettes Smokeless tobacco: Never Vaping Use Vaping status: Never Used Substance Use Topics Alcohol use: Yes Alcohol/week: 1.0 standard drink of alcohol Types: 1 Cans of beer per week Drug use: Never [4] Past Surgical History: Procedure Laterality Date CARDIAC PACEMAKER PLACEMENT CARDIAC STENT [5] No Known Allergies [6] No current outpatient medications on file. * Preprocedure Instructions - Pamela Buckley APRN - 09/08/2025 12:30 PM EST Home Medication Instructions Current Medications Medication Instructions acetaminophen (Tylenol) 500 MG tablet Take as needed carvedilol (Coreg) 12.5 MG tablet Take morning of surgery cholecalciferol (D-5000) 5,000 Units tablet Hold day of surgery clopidogrel (Plavix) 75 MG tablet Hold 5 days before surgery per surgeon. esomeprazole (NexIUM) [address] capsule Take morning of surgery HYDROcodone-acetaminophen (Starrucca) 10-325 MG tablet Take as needed nitroglycerin (Nitrostat) 0.4 MG SL tablet Take as prescribed olmesartan-hydroCHLOROthiazide (BENIcar HCT) 40-25 MG tablet Hold day of surgery Xarelto 20 MG tablet Hold 2 days before surgery General Preoperative Instructions You will be called the business day before surgery with your arrival time No food after midnight the night before surgery. After midnight, you can have clear liquids only (water, apple juice, Gatorade) up to 2 hours prior to arrival if allowed in your surgeon's instructions. No coffee, soda, or tea. No red, blue or purple drinks. No alcohol or smoking prior to surgery Arrive on time to avoid delays Parking/Registration procedure explained You MUST have a responsible adult available for transport to and from hospital Visitation policy for the day of surgery reviewed Bring insurance card, photo ID, along with power of set up technician, guardianship or advanced directives if applicable Do not bring money, jewelry or other valuables Hibiclens bathing instructions reviewed if applicable Notify surgeon of fever, illness, any changes or if you decide not to have surgery Diabetes Instructions (If applicable) Take diabetes medication as instructed You may have up to 4 ounces of apple juice 2 hours prior to arrival for surgery for low glucose documented in this encounter Plan of Treatment Upcoming Encounters Date Type Department Care Team (Latest Contact Info) Description 09/08/2025 11:59 PM EST Anesthesia Event [facility] [address] [place] [address] Pamela Buckley APRN [address] [place] [address] 09/14/2025 2:00 PM EST Appointment [facility] [address] [place] [address] Rene Mejia MD [address] [place] [phone] 09/19/2025 10:10 AM EST Office Visit [facility] [address] [place] [address] Jose Martin García MD [address] [phone] documented as of this encounter Goals Goal Patient Goal Type Associated Problems Recent Progress Patient-Stated? Author Autogenerat ed Goal Care Plan Autogenerated Problem No Marzena Akins documented as of this encounter Visit Diagnoses Not on filedocumented in this encounter Additional Health Concerns Active Problems Noted Date Diagnosed Date Autogenerated Problem 09/08/2025 Assessment Noted Time A fall risk assessment has been complete d for the patient 09/07/2025 1:35 PM EST A Body Mass Index follow-up plan has been documented for the patient 09/07/2025 3:02 PM EST documented as of this encounter Care Teams Log Sorting Supervisor Relationship Specialty Start Date End Date Rosalino Pichardo DO [address] [place] [address] PCP - General 08/02/25 documented as of this encounter
--- OUTSIDE RECORDS SUMMARY | 2025-09-11 15:03 | XMS_ITS | Encounter Summary ---
Author Organization [facility] Address [address] [place] [address] Care Team Providers Care Superintendent [employer] Name Role Phone Rosalino Pichardo DO Primary Care Provider [phone] Reason for Referral * Imaging (Routine) - Closed Specialty Diagnoses / Procedures Referred By Contac t Referred To Contact Radiology Diagnoses Malignant neoplasm of stomach, unspecified location (CMS/HCC) Procedures CT Abdomen Pelvis w IV Contrast Jose Martin García MD [address] [address] Phone: tel: fax: Referral ID Status Reason Start Date Expiration Date Visits Re quested Visits Authorized [id number] Closed 09/07/2025 03/09/2027 1 1 * Imaging (Routine) - Closed Specialty Diagnoses / Procedures Referred By Contac t Referred To Contact Radiology Diagnoses Malignant neoplasm of stomach, unspecified location (CMS/HCC) Procedures CT Chest w IV Contrast Jose Martin García MD [address] [address] Phone: tel: fax: Referral ID Status Reason Start Date Expiration Date Visits Re quested Visits Authorized [id number] Closed 09/07/2025 03/09/2027 1 1 Reason for Visit * Imaging (Routine) - Closed Specialty Diagnoses / Procedures Referred By Contac t Referred To Contact Radiology Diagnoses Malignant neoplasm of stomach, unspecified location (CMS/HCC) Procedures CT Abdomen Pelvis w IV Contrast Jose Martin García MD [address] [place] [address] Phone: tel: fax: Referral ID Status Reason Start Date Expiration Date Visits Re quested Visits Authorized [id number] Closed 09/07/2025 03/09/2027 1 1 Encounter Details Date Type Department Care Team (Latest Contact Info) Description 09/11/2025 3:03 PM EST - 09/11/2025 11:59 PM [facility] Encounter [facility] [address] [place] [address] Malignant neoplasm of stomach, unspecified location (CMS/HCC) Discharge Disposition: Home or Self Care Social History Tobacco Use Types Packs/Day Years [...] on file documented as of this encounter Medications at Time of Discharge acetaminophen (Tylenol) 500 MG tablet Take 2 tablets by mouth 4 times a day as needed. carvedilol (Coreg) 12.5 MG tablet Take 1 tablet by mouth twice a day. 01/04/2025 cholecalciferol (D-5000) 5,000 Units tablet Take 1 tablet by mouth daily. clopidogrel (Plavix) 75 MG tablet Take 1 tablet by mouth daily. 02/23/2025 esomeprazole (NexIUM) [address] capsule Take 1 capsule by mouth daily before breakfast. HYDROcodone-aceta minophen (Elberon) 10-325 MG tablet Take 1 tablet by mouth every 8 hours as needed. 01/05/2025 nitroglycerin (Nitrostat) 0.[address] 1 tablet under the tongue every 5 minutes as needed. 09/04/2025 olmesartan-hydroC HLOROthiazide (BENIcar HCT) 40-25 MG tablet Take 1 tablet by mouth daily. 02/08/2025 Xarelto 20 MG tablet Take 1 tablet by mouth daily. 11/03/2024 documented as of this encounter Miscellaneous Notes * Olvin Clay - Matt Yeh - 09/11/2025 3:35 PM EST Images from the original note were not included. 1639 Caring for Yourself after Contrast Imaging If you had ORAL contrast: ? You can go back to your normal diet and activities as tolerated. ? Drink plenty of fluids, unless told otherwise. If you had IV contrast: ? You can go back to your normal diet and activities as tolerated. ? Drink plenty of fluids, unless told otherwise. ? Leave a bandage on the site for 30 minutes (where the IV was inserted or blood was drawn). If you had Intravesical (bladder) contrast: ? Return to normal diet and activity. What you need to know about delayed reaction to IV contrast What is IV Contrast? ? Contrast is a dye that is put into your body through an IV. ? It is used for imaging scans such as CT scans and MRIs. ? The contrast makes blood vessels, organs and other parts of your body show up better on the scan. What do I need to do after IV contrast? ? Drink lots of fluids. This will help flush the contrast out of your system. ? Drink 2-3 extra glasses or bottles of water within 4 hours of your scan. What is a contrast reaction? ? A contrast reaction is a bad side effect from the contrast dye. ? It is rare but it does happen. ? They can be mild - such as sneezing, itching, or hives. ? They can be severe - such as trouble breathing, throat swelling, and irregular heart beat. When do these reactions happen? ? They often happen right after the contrast is injected. ? Some happen hours after going home. Go to the nearest Emergency Department right away if you have any of these symptoms after you leavethe clinic or hospital. ? Sneezing ? Itching in your mouth, throat, eyes, ears, or skin ? Rash or hives ? Throwing up or stomach sickness ? High heart rate or ?racing? of your heart ? Feeling dizzy or woozy ? Feeling short of breath or like you can?t take a deep breath ? Feeling very anxious for no other reason It is very important that these reactions be treated. Tell the doctor or nurse that you are having a reaction to IV contrast dye. Do not ignore any sign of a reaction! All reactions must be assessed by a doctor. Call [phone] if you are alone and your reaction is more than mild sneezing or itching. If you have a mild reaction, call to speak with a Radiologist, explain that you havehad a contrast reaction, as this needs to be added to your medical record. documented in this encounter Plan of Treatment Upcoming Encounters Date Type Department Care Team (Latest Contact Info) Description 09/08/2025 11:59 PM EST Anesthesia Event [facility] [address] [place] [address] Pamela Buckley, INSTRUCTOR TRAINER CANINE SERVICE [address] [place] [address] 09/14/2025 2:00 PM EST Appointment [facility] [address] [place] [address] Rene Mejia MD [address] [place] [address] 09/19/2025 10:10 AM EST Office Visit [facility] [address] [place] [address] Jose Martin García MD [address] [address] documented as of this encounter Goals Goal Patient Goal Type Associated Problems Recent Progress Patient-Stated? Author Autogenerat ed Goal Care Plan Autogenerated Problem No Marzena Akins documented as of this encounter Procedures Procedure Name Priority Date/Time Associated Diagnosis Comments CT ABDOMEN PELVIS W IV CONTRAST Routine 09/11/2025 4:06 PM EST Malignant neoplasm of stomach, unspecified location (CMS/HCC) CT CHEST W IV CONTRAST Routine 09/11/2025 4:06 PM EST Malignant neoplasm of stomach, unspecified location (CMS/HCC) documented in this encounter Results * CT Abdomen Pelvis [...] biopsy confirmed invasive gastric adenocarcinoma. MSI intact, MRX5imj negative, CLDN18 positive, PDL1 score 5. Noted [...] Total DLP (Dose-Length Product): 1202.81 mGy.cm (accession [id number]), 1202.81 mGy.cm (accession [id number]) Please note: The reported value represents the [...] and biopsy confirmed invasive gastricadenocarcinoma. MSI intact, CAN6tmu negative, CLDN18 positive, PDL1 score5. Noted to [...] Total DLP (Dose-Length Product): 1202.81 mGy.cm (accession [id number]),1202.81 mGy.cm (accession [id number]) Please note: The reported valuerepresents the total [...] biopsy confirmed invasive gastric adenocarcinoma. MSI intact, HSH0gdy negative, CLDN18 positive, PDL1 score 5. Noted [...] Total DLP (Dose-Length Product): 1202.81 mGy.cm (accession [id number]), 1202.81 mGy.cm (accession [id number]) Please note: The reported value represents the [...] and biopsy confirmed invasive gastricadenocarcinoma. MSI intact, FMB1luj negative, CLDN18 positive, PDL1 score5. Noted to [...] Total DLP (Dose-Length Product): 1202.81 mGy.cm (accession [id number]),1202.81 mGy.cm (accession [id number]) Please note: The reported valuerepresents the total [...] MD IMG CT PROCEDURES Final Resu lt documented in this encounter Visit Diagnoses Diagnosis Malignant neoplasm of stomach, unspecified location (CMS/HCC) documented in this encounter Administered Medications Inactive Administered Medications - up to 3 most recent administrations Medication Order MAR Action Action Date Dose Rate Site iohexol (OMNIPaque) 350 MG/ML injection 100 mL 100 mL, Intravenous, Once in imaging, 1 dose, Starting on Thu09/11/25 at 1510, Until Thu09/11/25 at 1557, Routine, Imaging Protocol Orders Given 09/11/2025 3:57 PM EST 100 mL documented in this encounter Additional Health Concerns Active Problems Noted Date Diagnosed Date Autogenerated Problem 09/08/2025 Assessment Noted Time A fall risk assessment has been complete d for the patient 09/07/2025 1:35 PM EST A Body Mass Index follow-up plan has been documented for the patient 09/07/2025 3:02 PM EST documented as of this encounter Care Teams Superintendent [employer] Relationship Specialty Start Date End Date Rosalino Pichardo DO [address] [place] [address] PCP - General 08/02/25 documented as of this encounter
--- OUTSIDE RECORDS SUMMARY | 2025-09-13 11:01 | XMS_ITS | Encounter Summary ---
Author Organization [facility] Address [address] [place] [address] Care Team Providers Care Netting Inspector Name Role Phone Rosalino Pichardo DO Primary Care Provider [phone] Encounter Details Date Type Department Care Team (Latest Contact Info) Description 09/05/2025 Lab Requisition [facility] [address] [place] [address] Jose Martin García MD [address] [address] Gastrointestinal hemorrhage, unspecified Social History [...] EST Anesthesia Event [facility] [address] [place] [address] Pamela Buckley W, FISHING INSTRUCTOR [address] [place] [address] 09/14/2025 2:00 PM EST Appointment [facility] [address] [place] [address] Rene Mejia MD [address] [place] [address] 09/19/2025 10:10 AM EST Office Visit [facility] Multidisciplinary Oncology Clinic [address] [place] [address] Jose Martin García MD [address] [address] documented as of this encounter Procedures Procedure Name Priority Date/Time Associated Diagnosis Comments SURGICAL PATHOLOGY CONSULT Routine 09/05/2025 1:34 PM EST Gastrointestinal hemorrhage, unspecified documented in this encounter Results * Surgical Pathology Consult (09/05/2025 1:34 PM EST) Case Report Sugical Pathology Consult Case: [id number] Authorizing Provider: Jose Martin García MD Collected: 09/05/20251333 Ordering Location: [facility] Lab Received: 09/05/20255 Pathologist: Dulce Bryant MD Specimen: Stomach, [id number] 09/05/2025 3:52 PM EST [facility] Final Diagnosis SMALL INTESTINE, DUODENUM, BIOPSY ([id number]; 08/24/2025): - NO PATHOLOGIC ABNORMALITIES. 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 STOMACH, FUNDUS, BIOPSY ([id number] C; 08/24/2025): - CHRONIC GASTRITIS WITH INTESTINAL METAPLASIA. 09/05/2025 3:52 PM EST [facility] at 1552 EST Comment Per pathology report) Immunohistochemical stains for MMR proteins: retained nuclear immunoreaction for all 4 proteins (MLH-1, MSH-2, MSH-6, and PMS-2) Immunohistochemical stain for Her-2/eugene: negative (score 1+) CLDN18 (43-14A): positive PD-L1 (22C3) Combined Positive Score: 5 09/05/2025 3:52 PM EST [facility] Clinical Information K92.2 - Gastrointestinal hemorrhage, unspecified [ICD-10-CM] 09/05/2025 3:52 PM EST [facility] Gross Description A. [id number] Received along with a corresponding pathology report from [facility] are 11 slides labeled outside case: [id number] collected on 08/24/2025. 09/05/2025 3:52 PM EST [facility] Note: A resident was involved in the service. I attest I examined the relevant preparations for the specimens and confirmed the diagnosis or interpretation. 09/05/2025 3:52 PM EST [facility] Tissue Stomach structure / Unknown 09/05/2025 1:34 PM EST 09/05/2025 1:35 PM EST us Jose Martin García MD LAB PATHOLOGY ORDERABLES Fin al Result [facility] [address] [place] [address] documented in this encounter Visit Diagnoses Diagnosis Gastrointestinal hemorrhage, unspecified documented in this encounter Care Teams Netting Inspector Relationship Specialty Start Date End Date Rosalino Pichardo DO [address] [place] [address] PCP - General 08/02/25 documented as of this encounter
--- OUTSIDE RECORDS SUMMARY | 2025-09-13 11:02 | XMS_ITS | Encounter Summary ---
Author Organization [place] [address] Care Team Providers Care Fibre Composite Technician Name Role Phone Rosalino Pichardo DO Primary Care Provider [phone] Jose Hinds MD Unavailable [phone] Marlo Davison MD Unavailable [phone] Encounter Details Date Type Department Care Team (Late st Contact Info) Description 06/29/2020 Orders Only [facility] H[facility] [place] [facility] [address] [place] [address] Marlo Davison MD [address] [place] [address] Social History Tobacco Use Types [...] EDT) 06/29/2020 11:1 9 AM EDT Narrative [facility] - 07/02/2020 9:13 AM EDT 53 minutes of AF, ATP converted to SR multiple times. Rates of AF <110 and pt on Xarelto. Sensing, threshold, & impedance stable without evidence of malfunction chanel tao RNCSD us Marlo Davison MD [facility] CARDIAC CATH ORDERABLES Final Result [facility] [address] [place] [address] documented in this encounter Visit [...] documented as of this encounter Care Teams Fibre Composite Technician Relationship Specialty Start Date End Date Rosalino Pichardo DO [address] [place] [address] PCP - General 07/13/09 Jose Hinds MD [address] [place] [address] Consulting Physician Internal Medicine - Clinical Cardiac Electrophysiology 04/16/17 Marlo Davison MD [address] [place] [address] Internal Medicine-Cardiovascular Disease 12/21/23 documented as of this encounter
--- OUTSIDE RECORDS SUMMARY | 2025-09-13 11:02 | XMS_ITS | Encounter Summary ---
Author Organization [place] [address] Care Team Providers Care Dry Press Operator Helper Name Role Phone Rosalino Pichardo DO Primary Care Provider [phone] Jose Hinds MD Unavailable Marlo Davison MD Unavailable [phone] Encounter Details Date Type Department Care Team (Late st Contact Info) Description 08/06/2021 Orders Only [facility] H[facility] [place] [facility] [address] [place] [address] Marlo Davison MD [address] [place] [address] Social History Tobacco Use Types Packs/Day [...] PM EDT) 08/06/2021 2:13 PM EDT Narrative [facility] - 08/08/2021 9:58 AM EDT Per carelink- 4 minutes in AT/AF since last session. Per Epic, patient is taking Xarelto. See attachments for full report and strips. lgy/rma us Marlo Davison MD [facility] CARDIAC CATH ORDERABLES Final Result [facility] [address] [place], [place] [id number] documented in this encounter Visit Diagnoses Not on filedocumented in this encounter Additional Health Concerns Assessment Noted Time A fall risk assessment has been complete d for the patient 06/25/2021 8:04 AM EDT documented as of this encounter Care Teams Dry Press Operator Helper Relationship Specialty Start Date End Date Rosalino Pichardo DO [address] [place] [address] PCP - General 07/13/09 Jose Hinds MD [address] [place] [address] Consulting Physician Internal Medicine - Clinical Cardiac Electrophysiology 04/16/17 Marlo Davison MD [address] [place] [address] Internal Medicine-Cardiovascular Disease 12/21/23 documented as of this encounter
--- OUTSIDE RECORDS SUMMARY | 2025-09-13 11:02 | XMS_ITS | Encounter Summary ---
Author Organization Healthcare Address [address] [place] [address] Care Team Providers Care Vice President Media Relations Name Role Phone Rosalino Pichardo DO Primary Care Provider [phone] Encounter Details Date Type Department Care Team [...] EST Anesthesia Event [facility] [address] [place] [address] Pamela Buckley W, PAINTER HAND [address] [place] [address] 09/14/2025 2:00 PM EST Appointment [facility] [address] [place] [address] Rene Mejia MD [address] [place] [address] 09/19/2025 10:10 AM EST Office Visit [facility] [address] [place] [address] Jose Martin García MD [address] [address] documented as of this encounter Visit Diagnoses Not on filedocumented in this encounter Additional Health Concerns Assessment Noted Time A fall risk assessment has been complete d for the patient 09/07/2025 1:35 PM EST A Body Mass Index follow-up plan has been documented for the patient 09/07/2025 3:02 PM EST documented as of this encounter Care Teams Vice President Media Relations Relationship Specialty Start Date End Date Rosalino Pichardo DO [address] [place] [address] PCP - General 08/02/25 documented as of this encounter
--- OUTSIDE RECORDS SUMMARY | 2025-09-13 11:02 | XMS_ITS | Clinical Summary ---
Author Organization [facility] Address [address] [place] [address] Phone Care Team Providers Care Cash Posting Clerk Name Role Phone Rosalino Pichardo DO Primary Care Provider [phone] Jose Hinds MD Unavailable Marlo Davison MD Unavailable [phone] Allergies Active Allergy Reactions Criticality Noted Date [...] want to go home on it. Harris Mocsoso MD 04/03/2017 10:48 AM Medications esomeprazole (NEXIUM) 20 mg Oral Capsule, Delayed Release(E.C.) Take 20 mg by mouth as needed. Reported on 03/31/2017 Active Cholecalciferol, Vitamin D3, 125 mcg (5,000 unit) Oral Tablet Take 5,000 Units by mouth daily. Active FA/MV,CA,IRON,MD N/LYCOPENE/LUT (MULTIVITAL ORAL) Take 1 Tab by [...] completed by Erika Beltre RN on 01/22/2024. [facility] - Vaibhav Martinez MD Interventional Pain Protocol: Rakesh report completed (EVERY 3 MONTHS) ( ) [facility] [place] [facility] [address] [phone] [employer] - [phone] [facility] additional info (Transportation, WC, [...] (08/01/2020): Added automatically from request for surgery [id number] Lumbar degenerative disc disease 02/02/2020 Lumbosacral spondylosis [...] (09/17/2017): Added automatically from request for surgery [id number] Combined systolic and diastolic congestive heart failure [...] (09/02/2017): Added automatically from request for surgery [id number] Chest pain 09/01/2017 09/07/2017 Overview (09/05/2017): Added automatically from request for surgery [id number] Chest pain 04/02/2017 04/06/2017 Encounters Date Type Department Care Team Description 06/23/2025 12:30 PM EDT Office Visit ENT [facility] [address] [place] [address] Hunter [...] balloon dilation; Surgeon: Hunter Aguirre MD; Location: [facility]; Service: Endoscopy UPPER GASTROINTESTINAL ENDOSCOPY 12/16/2016 N/A ESOPHAGOGASTRODUODENOSCOPY; Surgeon: Hunter Aguirre MD; Location: [facility]; Service: Endoscopy PACEMAKER INSERTION 04/02/2017 Left Medtronic, dual chamber pacemaker by Dr. Hinds CORONARY ANGIOPLASTY 09/02/2017 MAYR to OM and left circ CATARACT REMOVAL 03/16/2018 Right CATARACT REMOVAL 03/16/2018 Right Right eye CATARACT EXTRACTION WITH PHACOEMULSIFICATION AND INTRAOCULAR LENS; Surgeon: Mauro Guzman MD; Location: [facility]; Service: Ophthalmology Medical devices from this surgery [...] (hypertension) Pericarditis ~2017 I have gone [facility] and now exercise on [...] [employer] Medical Devices Implanted Type Area Piece Work Inspector Device Identifier Shelf Expiration Date Model / Serial / Lot Lead Pacing Implantable Capsurefix Novus 52cm Atrial/Ventric - [id number] Implanted:Qty: 1 on 04/02/2017 by Jose Hinds MD at [facility] Lead [employer]:PACING SYS 5076-52 / [id number] / Lead Pacing Implantable Capsurefix Novus 58cm Atrial/Ventric - [id number] Implanted:Qty: 1 on 04/02/2017 by Jose Hinds MD at [facility] Lead [employer]:PACING SYS 5076-58 / [id number] / Pacemaker Advisa Dual Chamber Mri - [id number] Implanted:Qty: 1 on 04/02/2017 by Jose Hinds MD at [facility] Pacemaker [employer]:PACING SYS A2DR01 / [id number] / Stent Xience Alpine Drug Eluting 3.0mm X 18mm - [id number] Implanted:Qty: 1 on 09/02/2017 by Elizabeth Shore MD at [facility] Explanted:at [facility] (Quantity not on file) [facility]:VASC DEV [id number] / [id number] Stent Xience Alpine Drug Eluting 2.5mm X 15mm - [id number] Implanted:Qty: 1 on 09/02/2017 by Elizabeth Shore MD at [facility] Explanted:at [facility] (Quantity not on file) [facility]:VASC DEV [id number] Lens Intraocular Preloaded 19.0 Diopter - [id number] Implanted:Qty: 1 on 03/16/2018 by Mauro Guzman MD at [facility] Right: Eye [facility]:SURG 07/02/2020 [id number] 0 / [id number] / Insurance MEDICARE PPO MR MEDICARE PPO MR [facility] MEDICARE PPO MR Advance Directives For more information, please contact: [phone] * Full Code (Latest Code Status on File) Date Activated Date Inactivated Comments 09/04/2017 8:23 AM 09/06/2017 5:17 PM * Full Code Date Activated Date Inactivated Comments 04/01/2017 3:19 AM 04/03/2017 3:57 PM * Full Code Date Activated Date Inactivated Comments 04/01/2017 12:23 AM 04/01/2017 3:19 AM Care Teams Cash Posting Clerk Relationship Specialty Start Date End Date Rosalino Pichardo DO [address] [place] [address] PCP - General 07/13/09 Jose Hinds MD [address] [place] [address] [place] [address] Consulting Physician Internal Medicine - Clinical Cardiac Electrophysiology 04/16/17 Marlo Davison MD [address] [place] [id number] Internal Medicine-Cardiovascular Disease 12/21/23
--- OUTSIDE RECORDS SUMMARY | 2025-09-13 11:02 | XMS_ITS | Encounter Summary ---
Author Organization [place] [address] Care Team Providers Care Messaging Architect Name Role Phone Rosalino Pichardo DO Primary Care Provider [phone] Jose Hinds MD Unavailable Marlo Davison MD Unavailable Encounter Details Date Type Department Care Team (Late st Contact Info) Description 10/15/2020 Orders Only [facility] [place] [facility] [address] [place] [address] Marlo Davison MD [address] [place] [address] Social History Tobacco Use Types [...] PM EST) 10/15/2020 3:19 PM EST Narrative [facility] - 10/15/2020 2:49 PM EST Per carelink- 22 minutes in AT/AF since last session. Per Epic, patient is taking Xarelto. See attachments for full report and strips. lgy/rma us Marlo Davison MD [facility] CARDIAC CATH ORDERABLES Final Result [facility] [address] [place], [place] [id number] documented in this encounter Visit Diagnoses Not on filedocumented in this encounter Additional Health Concerns Assessment Noted Time A fall risk assessment has been complete d for the patient 11/10/2019 10:26 AM EST documented as of this encounter Care Teams Messaging Architect Relationship Specialty Start Date End Date Rosalino Pichardo DO [address] [place] [address] PCP - General 07/13/09 Jose Hinds MD [address] [place] [address] Consulting Physician Internal Medicine - Clinical Cardiac Electrophysiology 04/16/17 Marlo Davison MD [address] [place] [phone] Internal Medicine-Cardiovascular Disease 12/21/23 documented as of this encounter
--- OUTSIDE RECORDS SUMMARY | 2025-09-13 11:02 | XMS_ITS | Encounter Summary ---
Author Organization [place] [address] Care Team Providers Care Motorcycle Racer Name Role Phone Rosalino Pichardo DO Primary Care Provider [phone] Jose Hinds MD Unavailable Haleigh Amaya RN Unavailable Unavail able Marlo Davison MD Unavailable [phone] Encounter Details Date Type Department Care Team (Late st Contact Info) Description 04/02/2017 Orders Only [facility] Arrhythmia Ctr Edg [address] [facility] [address] [place] [address] Jose Hinds MD [address] [place], [place] [id number] Social History Tobacco Use Types Packs/Day Years [...] PM EDT) 04/02/2017 6:54 PM EDT Narrative [facility] - 04/02/2017 5:45 PM EDT implant report us Jose Hinds MD [facility] CARDIAC CATH ORDERAB LES Final Result [facility] [address] [place] [address] documented in this encounter Visit Diagnoses Not on filedocumented in this encounter Additional Health Concerns Infection Onset Date Last Indicated Resolved Time R/O C-Diff 07/03/2020 07/03/2020 07/03/2020 3:24 PM EDT R/O COVID-19 09/17/2020 09/18/2020 09/20/2020 8:03 PM EST Assessment Noted Time A fall risk assessment has been complete d for the patient 05/29/2016 9:03 AM EDT documented as of this encounter Care Teams Motorcycle Racer Relationship Specialty Start Date End Date Rosalino Pichardo DO [address] [place] [address] PCP - General 07/13/09 Jose Hinds MD [address] [place] [address] Consulting Physician Internal Medicine - Clinical Cardiac Electrophysiology 04/16/17 Haleigh Amaya, RN Health Advocate 09/07/17 12/30/17 Marlo Davison MD [address] [place] [address] Internal Medicine-Cardiovascular Disease 12/21/23 documented as of this encounter
--- OUTSIDE RECORDS SUMMARY | 2025-09-13 11:02 | XMS_ITS | Encounter Summary ---
Author Organization Healthcare Address [address] [place] [address] Care Team Providers Care Architecture Department Chair Name Role Phone Rosalino Pichardo DO Primary Care Provider [phone] Encounter Details Date Type Department Care Team (Latest Contact Info) Description 09/11/2025 Travel Social History Tobacco Use Types Packs/Day [...] EST Anesthesia Event [facility] [address] [place] [address] Pamela Buckley, RAILROAD WATCHMAN [address] [place] [address] 09/14/2025 2:00 PM EST Appointment [facility] [address] [place] [address] Rene Mejia MD [address] [place] [address] 09/19/2025 10:10 AM EST Office Visit [facility] [address] [place] [address] Jose Martin García MD [address] [place] [phone] documented as of this encounter Goals Goal [...] documented as of this encounter Care Teams Architecture Department Chair Relationship Specialty Start Date End Date Rosalino Pichardo DO [address] [place] [address] PCP - General 08/02/25 documented as of this encounter
--- OUTSIDE RECORDS SUMMARY | 2025-09-13 11:02 | XMS_ITS | Encounter Summary ---
Author Organization Healthcare Address [address] [place] [address] Care Team Providers Care Travel Agency Manager Name Role Phone Rosalino Pichardo DO Primary Care Provider [phone] Encounter Details Date Type Department Care Team [...] EST Anesthesia Event [facility] [address] [place] [address] Pamela Buckley, REGIONAL SAFETY MANAGER [address] [place] [address] 09/14/2025 2:00 PM EST Appointment [facility] [address] [place] [address] Rene Mejia MD [address] [place] [address] 09/19/2025 10:10 AM EST Office Visit [facility] [address] [place] [address] Jose Martin García MD [address] [place] [phone] documented as of this encounter Goals Goal [...] documented as of this encounter Care Teams Travel Agency Manager Relationship Specialty Start Date End Date Rosalino Pichardo DO [address] [place] [address] PCP - General 08/02/25 documented as of this encounter
--- OUTSIDE RECORDS SUMMARY | 2025-09-13 11:02 | XMS_ITS | Encounter Summary ---
Author Organization [place] [address] Care Team Providers Care Chief Digital Media Officer Name Role Phone Rosalino Pichardo DO Primary Care Provider [phone] Jose Hinds MD Unavailable Marlo Davison MD Unavailable [phone] Encounter Details Date Type Department Care Team (Late st Contact Info) Description 01/23/2021 Orders Only [facility] H[facility] [place] [facility] [address] [place] [address] Marlo Davison MD [address] [place] [phone] Social History Tobacco Use Types Packs/Day [...] PM EDT) 01/23/2021 2:02 PM EDT Narrative [facility] - 01/24/2021 8:56 AM EDT Per carelink- 31 minutes in AT/AF since last session. Per Epic, patient is taking Xarelto. See attachments for full report and strips. lgy/rma us Marlo Davison MD [facility] CARDIAC CATH ORDERABLES Final Result [facility] [address] [place] [address] documented in this encounter Visit Diagnoses Not on filedocumented in this encounter Additional Health Concerns Assessment Noted Time A fall risk assessment has been complete d for the patient 11/10/2019 10:26 AM EST documented as of this encounter Care Teams Chief Digital Media Officer Relationship Specialty Start Date End Date Rosalino Pichardo DO [address] [place] [address] PCP - General 07/13/09 Jose Hinds MD [address] [place] [address] Consulting Physician Internal Medicine - Clinical Cardiac Electrophysiology 04/16/17 Marlo Davison MD [address] [place] [address] Internal Medicine-Cardiovascular Disease 12/21/23 documented as of this encounter
--- OUTSIDE RECORDS SUMMARY | 2025-09-13 11:02 | XMS_ITS | Clinical Summary ---
Author Organization Healthcare Address [address] [place] [address] Care Team Providers Care Interpretative Dancer Name Role Phone Rosalino Pichardo DO Primary Care Provider [phone] Allergies No known active allergies Medications acetaminophen [...] mouth daily before breakfast. Active HYDROcodone-malinda taminophen ([place]) 10-325 MG tablet Take 1 tablet by [...] Encounters Date Type Department Care Team Description 09/11/2025 3:03 PM EST - 09/11/2025 11:59 PM EST Hospital Encounter [facility] [address] [place] [address] Malignant neoplasm of stomach, unspecified location (CMS/HCC) Discharge Disposition: Home or Self Care 09/11/2025 Travel 09/08/2025 12:30 PM EST [facility] Testing [place] [facility] [address] [place] [address] 09/08/2025 Travel 09/07/2025 1:00 PM EST Office Visit [facility] [address] [place] [address] Jose Martin García MD Malignant neoplasm of stomach, unspecified location (CMS/HCC) (Primary Dx) 09/07/2025 Travel 09/05/2025 Lab Requisition [facility] [address] [place] [phone] Jose Martin García MD Gastrointestinal hemorrhage, unspecified [...] EST Anesthesia Event [facility] [address] [place] [address] Pamela Buckley W, [employer] [address] [place] [address] 09/14/2025 2:00 PM EST Appointment [facility] [address] [place] [address] Rene Mejia MD [address] [place] [address] 09/19/2025 10:10 AM EST Office Visit [facility] [address] [place] [address] Jose Martin García MD [address] [facility] [address] [place] [address] Health Maintenance Due Date Last Done Comments [facility]-Depression Screening 1937 [facility]-Medicare Annual Wellness (AWV) 1937 [facility]-/Child/Adol SDOH Screenings 1937 [facility]- SDOH Screenings 1955 [facility]-Adult SDOH Screenings 1955 [facility]-Pneumococcal Vaccine: 50+ Years (1 of 2 - PCV) 1956 [facility]-Zoster Vaccines (1 of 2) 1956 [facility]-RSV Vaccine: 60+ Years or (1 - 1-dose 75+ series) 2012 [id number] Vaccine (2024- season) 2025 09/26/2022, 02/04/2022, 10/04/2021, Additional history [...] Care Plan Autogenerated Problem No Marzena Akins Procedures Procedure Name Priority Date/Time Associated Diagnosis Comments CT ABDOMEN PELVIS W IV CONTRAST Routine 09/11/2025 4:06 PM EST Malignant neoplasm of stomach, unspecified location (CMS/HCC) CT CHEST W IV CONTRAST Routine 4:06 PM EST Malignant neoplasm of stomach, unspecified location (CMS/HCC) PROTHROMBIN TIME(PT) / INR Today 09/07/2025 2:16 [...] unspecified from Last 3 Months Results * CT Abdomen Pelvis w IV [...] biopsy confirmed invasive gastric adenocarcinoma. MSI intact, KYY9fqg negative, CLDN18 positive, PDL1 score 5. Noted [...] Total DLP (Dose-Length Product): 1202.81 mGy.cm (accession [id number]), 1202.81 mGy.cm (accession [id number]) Please note: The reported value represents the [...] and biopsy confirmed invasive gastricadenocarcinoma. MSI intact, JAB0vcb negative, CLDN18 positive, PDL1 score5. Noted to [...] Total DLP (Dose-Length Product): 1202.81 mGy.cm (accession [id number]),1202.81 mGy.cm (accession [id number]) Please note: The reported valuerepresents the total [...] biopsy confirmed invasive gastric adenocarcinoma. MSI intact, UYX3mmt negative, CLDN18 positive, PDL1 score 5. Noted [...] Total DLP (Dose-Length Product): 1202.81 mGy.cm (accession [id number]), 1202.81 mGy.cm (accession [id number]) Please note: The reported value represents the [...] and biopsy confirmed invasive gastricadenocarcinoma. MSI intact, RRL5frz negative, CLDN18 positive, PDL1 score5. Noted to [...] Total DLP (Dose-Length Product): 1202.81 mGy.cm (accession [id number]),1202.81 mGy.cm (accession [id number]) Please note: The reported valuerepresents the total [...] 09/11/2025 8:26 PM Jose Martin García MD IM CT PROCEDURES Final Resu lt * (ABNORMAL) APTT (09/07/2025 2:16 PM EST) aPTT 40(H) 25 - 35 sec LAB COAGULATION METHOD 09/07/2025 4:36 PM EST [facility] Blood Venous blood specimen / Unknown Venipuncture / Unknown 09/07/2025 2:16 PM EST 09/07/2025 4:19 PM EST Jose Martin García MD LAB BLOOD ORDERABLES Final R [facility] Performing Organization Address [facility] Co de Phone Number [facility] [address] [place] [address] * (ABNORMAL) Prothrombin Time/INR (09/07/2025 2:16 PM EST) Prothrombin Time 25.2(H) 12.0 - 14.3 sec LAB COAGULATION METHOD 09/07/2025 4:36 PM EST [facility] INR 2.2(H) 0.9 - 1.1 LAB COAGULATION METHOD 09/07/2025 4:36 PM EST [facility] Blood Venous blood specimen / Unknown Venipuncture / Unknown 09/07/2025 2:16 PM EST 09/07/2025 4:19 PM EST Narrative [facility] - 09/07/2025 4:36 PM EST OPTIMAL INR RANGES FOR PATIENT ON ORAL ANTICOAGULANT THERAPY Prevention of venous thromboembolism INR 2.0 to 3.0 In patients with heart disease: Atrial fibrillation INR 2.0 to 3.0 Valvular heart disease INR 2.0 to 3.0 Tissue heart valves INR 2.0 to 3.0 Mechanical prosthetic valves INR 2.5 to 3.5 Prevention of recurrent NM INR 2.5 to 3.5 Jose Martin García MD LAB BLOOD ORDERABLES Final R esult Performing Organization Address City/[facility]/ZIP Co de Phone Number [facility] [address] [place] [address] * (ABNORMAL) CBC and Differential (09/07/2025 2:16 PM EST) WBC Count 8.81 3.70 - 10.30 10*3/uL LAB HEMATOLOGY METHOD 09/07/2025 4:35 PM EST [facility] RBC Count 2.61(L) 4.60 - 6.10 10*6/uL LAB HEMATOLOGY METHOD 09/07/2025 4:35 PM EST [facility] HGB 6.6(L) 13.7 - 17.5 g/dL LAB HEMATOLOGY METHOD 09/07/2025 4:35 PM [facility] HCT 22.6(L) 40.0 - 51.0 % LAB HEMATOLOGY METHOD 09/07/2025 4:35 PM [facility] Platelet Count 136(L) 155 - 369 10*3/uL LAB HEMATOLOGY METHOD 09/07/2025 4:35 PM [facility] MCV 87 79 - 98 fL LAB HEMATOLOGY METHOD 09/07/2025 4:35 PM [facility] MCH 25.3(L) 26.0 - 32.0 pg LAB HEMATOLOGY METHOD 09/07/2025 4:35 PM [facility] MCHC 29.2(L) 30.7 - 35.5 g/dL LAB HEMATOLOGY METHOD 09/07/2025 4:35 PM [facility] RDW 15.6(H) 11.5 - 14.5 % LAB HEMATOLOGY METHOD 09/07/2025 4:35 PM [facility] MPV 12.3 8.8 - 12.5 fL LAB HEMATOLOGY METHOD 09/07/2025 4:35 PM [facility] nRBC 1.2(H) <=0.0 per 100 WBCs LAB HEMATOLOGY METHOD 09/07/2025 4:35 PM [facility] Differential Type Automated LAB HEMATOLOGY METHOD 09/07/2025 4:35 PM [facility] Neutrophils % 64 % LAB HEMATOLOGY METHOD 09/07/2025 4:35 PM [facility] Lymphocytes % 21 % LAB HEMATOLOGY METHOD 09/07/2025 4:35 PM [facility] Monocytes % 11 % LAB HEMATOLOGY METHOD 09/07/2025 4:35 PM [facility] Eosinophils % 2 % LAB HEMATOLOGY METHOD 09/07/2025 4:35 PM [facility] Basophils % 1 % LAB HEMATOLOGY METHOD 09/07/2025 4:35 PM [facility] Immature Granulocytes % 1 % LAB HEMATOLOGY METHOD 09/07/2025 4:35 PM [facility] Neutrophils Absolute 5.70 1.60 - 6.10 10*3/uL LAB HEMATOLOGY METHOD 09/07/2025 4:35 PM [facility] Lymphocytes Absolute 1.82 1.20 - 3.90 10*3/uL LAB HEMATOLOGY METHOD 09/07/2025 4:35 PM EST [facility] Monocytes Absolute 0.94(H) 0.30 - 0.90 10*3/uL LAB HEMATOLOGY METHOD 09/07/2025 4:35 PM EST [facility] Eosinophils Absolute 0.19 0.00 - 0.50 10*3/uL LAB HEMATOLOGY METHOD 09/07/2025 4:35 PM EST [facility] Basophils Absolute 0.05 0.00 - 0.10 10*3/uL LAB HEMATOLOGY METHOD 09/07/2025 4:35 PM EST [facility] Immature Granulocytes Absolute 0.11(H) 0.00 - 0.06 10*3/uL LAB HEMATOLOGY METHOD 09/07/2025 4:35 PM EST [facility] Blood Venous blood specimen / Unknown Venipuncture / Unknown 09/07/2025 2:16 PM EST 09/07/2025 4:24 PM EST Narrative [facility] - 09/07/2025 4:35 PM EST Therapeutic decision making should be based on absolute values, rather than percentages. Jose Martin García MD LAB BLOOD ORDERABLES Final R esult [facility] [address] [place] [address] * Prealbumin, Plasma (09/07/2025 2:16 PM EST) Prealbumin, Plasma 20.1 20.0 - 41.0 mg/dL 09/07/2025 4:50 PM EST [facility] Blood Venous blood specimen / Unknown Venipuncture / Unknown 09/07/2025 2:16 PM EST 09/07/2025 4:19 PM EST Jose Martin García MD LAB BLOOD ORDERABLES Final R esult [facility] [address] [place] [address] * (ABNORMAL) Comprehensive Metabolic Panel, Plasma (09/07/2025 2:16 PM EST) Glucose, Plasma 106(H) 74 - 99 mg/dL 09/07/2025 4:50 PM [facility] BUN, Plasma 31(H) 8 - 23 mg/dL 09/07/2025 4:50 PM [facility] Creatinine, Plasma 1.68(H) 0.70 - 1.20 mg/dL 09/07/2025 4:50 PM EST [facility] BUN/Creatinine Ratio 18 09/07/2025 4:50 PM EST [facility] Sodium, Plasma 139 136 - 145 mmol/L 09/07/2025 4:50 PM [facility] Potassium, Plasma 4.1 3.6 - 4.9 mmol/L 09/07/2025 4:50 PM [facility] Chloride, Plasma 102 97 - 107 mmol/L 09/07/2025 4:50 PM [facility] CO2, Plasma 26 22 - 29 mmol/L 09/07/2025 4:50 PM [facility] Anion Gap 11 6 - 16 mmol/L 09/07/2025 4:50 PM [facility] Total Calcium, Plasma 8.7(L) 8.9 - 10.2 mg/dL 09/07/2025 4:50 PM [facility] Total Protein 7.2 6.3 - 7.9 g/dL 09/07/2025 4:50 PM [facility] Albumin, Plasma 4.1 3.5 - 5.2 g/dL 09/07/2025 4:50 PM [facility] AST, Plasma 21 10 - 50 U/L 09/07/2025 4:50 PM [facility] ALT, Plasma 17 10 - 50 U/L 09/07/2025 4:50 PM [facility] Alkaline Phosphatase, Plasma 80 40 - 115 U/L 09/07/2025 4:50 PM [facility] Total Bilirubin, Plasma 0.2 0.2 - 1.1 mg/dL 09/07/2025 4:50 PM [facility] eGFRcr 38.8 mL/min/1.7 3m*2 09/07/2025 4:50 PM [facility] Comment:Reported eGFRcr in m L/min/1.73m2 is based the CKD-EPI 2020 equation that does not use a race coefficient. Blood Venous blood specimen / Unknown Venipuncture / Unknown 09/07/2025 2:16 PM EST 09/07/2025 4:19 PM EST Jose Martin García MD LAB BLOOD ORDERABLES Final R esult [facility] [address] [place] [address] * Surgical Pathology Consult (09/05/2025 1:34 PM EST) Case Report Sugical Pathology Consult Case: [id number] Authorizing Provider: Jose Martin García MD Collected: 09/05/2025 1334 Ordering Location: [facility] Received: 09/05/2025 1335 Pathologist: Dulce Bryant MD Specimen: Stomach, [id number] 09/05/2025 3:52 PM EST [facility] Final Diagnosis SMALL INTESTINE, DUODENUM, BIOPSY ([id number]; 08/24/2025): - NO PATHOLOGIC ABNORMALITIES. 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 STOMACH, FUNDUS, BIOPSY ([id number] C; 08/24/2025): - CHRONIC GASTRITIS WITH INTESTINAL METAPLASIA. 09/05/2025 3:52 PM EST [facility] at 1552 EST Comment Per pathology report) Immunohistochemical stains for MMR proteins: retained nuclear immunoreaction for all 4 proteins (MLH-1, MSH-2, MSH-6, and PMS-2) Immunohistochemical stain for Her-2/eugene: negative (score 1+) CLDN18 (43-14A): positive PD-L1 (22C3) Combined Positive Score: 5 09/05/2025 3:52 PM EST [facility] Clinical Information K92.2 - Gastrointestinal hemorrhage, unspecified [ICD-10-CM] 09/05/2025 3:52 PM EST [facility] Gross Description A. [id number] Received along with a corresponding pathology report from [facility] are 11 slides labeled outside case: [id number] collected on 08/24/2025. 09/05/2025 3:52 PM EST [facility] Note: A resident was involved in the service. I attest I examined the relevant preparations for the specimens and confirmed the diagnosis or interpretation. 09/05/2025 3:52 PM EST [facility] Tissue Stomach structure / Unknown 09/05/2025 1:34 PM EST 09/05/2025 1:35 PM EST us Jose Martin García MD LAB PATHOLOGY ORDERABLES Fin al Result [facility] [address] [place] [address] from Last 3 Months Additional Health Concerns Active Problems Noted Date Diagnosed Date Autogenerated Problem 09/08/2025 Insurance [facility] MEDICARE Care Teams Interpretative Dancer Relationship Specialty Start Date End Date Rosalino Pichardo DO [address] [place] [id number] PCP - General 08/02/25
--- OUTSIDE RECORDS SUMMARY | 2025-09-13 11:02 | XMS_ITS | Encounter Summary ---
Author Organization [place] [address] Care Team Providers Care Electrical Automation Engineer Name Role Phone Rosalino Pichardo DO Primary Care Provider [phone] Jose Hinds MD Unavailable [phone] Marlo Davison MD Unavailable Encounter Details Date Type Department Care Team (Late st Contact Info) Description 05/03/2021 Orders Only [facility] [place] [facility] [address] [place] [address] Marlo Davison MD [address] [place] [phone] Social History Tobacco Use Types Packs/Day [...] PM EDT) 05/03/2021 8:46 PM EDT Narrative [facility] - 05/06/2021 9:19 AM EDT Per carelink- 51 minutes in AT/AF since last session. 1 VT-NS, 5-27-21, 2 sec, HR 203 bpm. Per Epic, patient is taking Xarelto. See attachments for full report and strips. lgy/rma us Marlo Davison MD [facility] CATH ORDERABLES Final Result [facility] [address] [place] [address] documented in this encounter Visit Diagnoses Not on filedocumented in this encounter Additional Health Concerns Assessment Noted Time A fall risk assessment has been complete d for the patient 11/10/2019 10:26 AM EST documented as of this encounter Care Teams Electrical Automation Engineer Relationship Specialty Start Date End Date Rosalino Pichardo DO [address] [place] [address] PCP - General 07/13/09 Jose Hinds MD [address] [place], [place] [id number] Consulting Physician Internal Medicine - Clinical Cardiac Electrophysiology 04/16/17 Marlo Davison MD [address] [place] [address] Internal Medicine-Cardiovascular Disease 12/21/23 documented as of this encounter
--- OUTSIDE RECORDS SUMMARY | 2025-09-13 11:02 | XMS_ITS | Encounter Summary ---
Author Organization [place] [address] Care Team Providers Care Insurance Adjuster Name Role Phone Rosalino Pichardo DO Primary Care Provider [phone] Jose Hinds MD Unavailable [phone] Marlo Davison MD Unavailable [phone] Encounter Details Date Type Department Care Team (Late st Contact Info) Description 05/26/2025 Results Follow-Up [facility] [address] [place] [id number] Rosalino Pichardo DO [address] [place] [address] LIPID SCREEN, HEPATIC FUNCTION PANEL, BASIC METABOLIC [...] documented as of this encounter Care Teams Insurance Adjuster Relationship Specialty Start Date End Date Rosalino Pichardo DO [facility] [place] [address] PCP - General 07/13/09 Jose Hinds MD [address] [place] [address] [place] [address] Consulting Physician Internal Medicine - Clinical Cardiac Electrophysiology 04/16/17 Marlo Davison MD [address] [place] [address] Internal Medicine-Cardiovascular Disease 12/21/23 documented as of this encounter
--- OUTSIDE RECORDS SUMMARY | 2025-09-13 11:02 | XMS_ITS | Encounter Summary ---
Author Organization [place] [address] Care Team Providers Care Collection Specialist Name Role Phone Rosalino Pichardo DO Primary Care Provider [phone] Jose Hinds MD Unavailable [phone] Marlo Davison MD Unavailable [phone] Reason for Referral * Interventional Radiology (Routine) - Closed Specialty Diagnoses / Procedures Referred By Contac t Referred To Contact Radiology Diagnoses Lumbosacral spondylosis without myelopathy Procedures IR 2 LEVEL BILATERAL MEDIAL BRANCH BLOCK LUM SAC Vaibhav Martinez MD [address] [place] [address] Phone: tel: fax: Referral ID Status Reason Start Date Expiration Date Visits Re quested Visits Authorized [id number] Closed 12/08/2018 12/08/2019 1 1 Encounter Details Date Type Department Care Team (Late st Contact Info) Description 12/08/2018 E-Visit [facility] [place] [address] [place] [phone] Vaibhav Martinez MD [address] [place] [address] Repeat Procedure Social History Tobacco [...] documented as of this encounter Care Teams Collection Specialist Relationship Specialty Start Date End Date Rosalino Pichardo DO [address] [place] [address] PCP - General 07/13/09 Jose Hinds MD [address] [place] [address] Consulting Physician Internal Medicine - Clinical Cardiac Electrophysiology 04/16/17 Marlo Davison MD [address] [place] [phone] Internal Medicine-Cardiovascular Disease 12/21/23 documented as of this encounter
[2025-09-13] MEDS: IRON SUCROSE COMPLEX 200 MG in 0.9 % SODIUM CHLORIDE 100 ML 220 MG IV (11:21)
[2025-09-13 11:25] VITALS: BP 120/65; PULSE 72; RESP 18; O2SAT 97
[2025-09-13 11:34] VITALS: BMI 22.8
[2025-09-13 11:43] LABS: Hematocrit 22.4 % (42.0-52.0); Immature Granulocytes % 0.3 %; Mean Corpuscular HGB Conc 29.0 g/dL (31.8-35.4); Mean Corpuscular Hemoglobin 26.1 pg (27.0-31.2); Mean Corpuscular Volume 90.0 fl (80-94); Nucleated Red Blood Cells % 0.3 %; Platelet Count 134 K/mm3 (142-424); Red Blood Count 2.49 M/mm3 (4.60-6.20); Red Cell Distribution Width-SD 56.8 fL; White Blood Count 6.5 K/mm3 (4.8-10.8)
[2025-09-13 11:47] LABS: Hemoglobin 6.5 g/dL (14.1-18.0)
[2025-09-13 11:59] LABS: Alanine Aminotransferase 20 U/L (12-78); Albumin Level 4.1 g/dl (3.5-5.0); Albumin/Globulin Ratio 1.4 (1.1-1.8); Alkaline Phosphatase 78 U/L (38-126); Anion Gap 12.2 mEq/L (5-15); Aspartate Amino Transferase 28 U/L (17-59); Bilirubin,Total 0.4 mg/dl (0.2-1.3); Blood Urea Nitrogen 26 mg/dl (9-20); Calcium 8.8 mg/dl (8.4-10.2); Carbon Dioxide 27 mmol/L (22.0-30.0); Chloride 101 mmol/L (98-107); Creatinine Clearance Estimated 31 mL/min (50-200); Creatinine,Serum 1.80 mg/dl (0.66-1.25); Estimated Glomerular Filt Rate 36 ml/min (>60); GFR (African American) 43 ML/MIN (>60); Globulin 2.9 g/dL (1.3-3.2); Glucose 98 mg/dl (74-100); Potassium 4.2 mmoL/L (3.5-5.1); Sodium 136 mmol/L (136-145); Total Protein,Serum 7.0 g/dl (6.3-8.2)
[2025-09-13] MEDS: SODIUM CHLORIDE 0.9% 10ML FLUSH SYRINGE 10 ML IV (12:00)
[2025-09-13 12:10] VITALS: BP 121/69; PULSE 71
== END 2025-09-13 23:59 | disposition home or self-care (01) ==
LOC: INF 10:54
PROVIDERS: Surgery; PCP Family Medicine; Visit Provider Internal Medicine Medical Oncology
DX: D64.89 Other specified anemias (principal)
CPT/HCPCS: 80053; 85025; 96365; J1756

== ENCOUNTER 2025-09-15 13:43 | Outpatient (CLI) | payer MEDICARE, SELFPAY ==
[2025-09-15] MEDS: SODIUM CHLORIDE 0.9% 10ML FLUSH SYRINGE 10 ML IV (13:46)
[2025-09-15 13:47] VITALS: BP 125/80; PULSE 62; RESP 20; TEMP 36.6; O2SAT 98
[2025-09-15] MEDS: IRON SUCROSE COMPLEX 200 MG in 0.9 % SODIUM CHLORIDE 100 ML 220 MG IV (13:47)
[2025-09-15 14:30] VITALS: BP 121/60; PULSE 60; RESP 20; O2SAT 97
== END 2025-09-15 23:59 | disposition home or self-care (01) ==
LOC: INF 13:43
PROVIDERS: PCP Family Medicine; Visit Provider Internal Medicine Medical Oncology
DX: D64.89 Other specified anemias (principal)
CPT/HCPCS: 96365; J1756